=== PATIENT | male | born 1935 | race Caucasian/White ===

== ENCOUNTER 2018-12-07 21:39 | Inpatient (IN) | payer MEDICARE ==
[~2018-12-07] VITALS: Ht 172.7 cm; Wt 64.5 kg
[2018-12-07] MEDS ORDERED: ACETAMINOPHEN 325 MG TABLET PO PRN ×2 (22:00→22:45)
[2018-12-07] MEDS ORDERED: METHYL SALICYLATE/MENTHOL TOPICAL OINTMENT 57GM TUBE. TP PRN (22:00)
[2018-12-07] MEDS ORDERED: MAGNESIUM HYDROXIDE 2,400 MG/30 ML ORAL.SUSP. PO PRN (22:00)
[2018-12-07] MEDS ORDERED: MAG HYDROX/AL HYDROX/SIMETH 30 ML ORAL.SUSP PO PRN (22:00)
--- NOTE | 2018-12-07 22:40 | PDOC ---
Exam Note: Liam Note: Please also refer to the separate dictated note~for this date of service dictated separately.~Patient seen individually. Discussed the patient with Nursing staff reviewed the chart.~Reviewed interim history and current functioning. Reviewed vital signs,~Labs/ Radiology~and current medications noted below. Continue current treatment with the changes noted in the dictated addendum note Current Medications: I have reviewed the current psychotropics carefully including drug interactions. Risk benefit ratio favors no change other than as noted in my dictated progress note. MAURICE GLASS MD Dec 07, 2018 22:40
[2018-12-07] MEDS ORDERED: LORA-254 PO ×2 (22:43)
[2018-12-07] MEDS ORDERED: MULT1TAB52 PO (22:43)
[2018-12-07] MEDS ORDERED: ESCITALOPRAM OX10 MG PO (22:43)
[2018-12-07] MEDS ORDERED: DIVA250T PO (22:43)
[2018-12-07] MEDS ORDERED: METF500T16 PO (22:43)
[2018-12-07] MEDS ORDERED: TAMS0.4C97 PO (22:43)
[2018-12-07] MEDS ORDERED: POLY17PO5 PO (22:43)
[2018-12-07] MEDS ORDERED: ACET325T9 PO ×2 (22:43)
[2018-12-07] MEDS ORDERED: PRAM0.255 PO (22:43)
[2018-12-07] MEDS ORDERED: RASA1TAB2 PO (22:43)
[2018-12-07] MEDS ORDERED: TRAZ-86 PO (22:43)
[2018-12-07] MEDS ORDERED: ALLO300T PO (22:43)
[2018-12-07] MEDS ORDERED: QUET25TA5 PO (22:43)
[2018-12-07] MEDS ORDERED: ASCO500T3 PO (22:43)
[2018-12-07] MEDS ORDERED: ASPI-612 PO (22:43)
[2018-12-07] MEDS ORDERED: CLOP75TA PO (22:43)
[2018-12-07 22:53] LABS: BASO % 0 % (0-3); EOS % 0 % (0-3); HEMATOCRIT 39.1 % (39.0-53.0); HEMOGLOBIN 13.1 g/dL (13.0-17.5); LYMPH % 13 % (24-48); MEAN CORPUSCULAR HEMOGLOBIN 32 pg (25-35); MEAN CORPUSCULAR HGB CONC 34 g/dL (31-37); MEAN CORPUSCULAR VOLUME 96 fL (79-100); MONO # 0.6 x10^3/uL (0.0-1.1); MONO % 8 % (0-9); NEUT # 6.2 x10^3uL (1.8-7.7); NEUT % 78 % (31-73); PLATELET COUNT 255 x10^3/uL (140-400); RED BLOOD COUNT 4.05 x10^6/uL (4.30-5.70); RED CELL DISTRIBUTION WIDTH 14.3 % (11.5-14.5); WHITE BLOOD COUNT 7.9 x10^3/uL (4.0-11.0)
[2018-12-07 23:00] LABS: ALBUMIN 3.6 g/dL (3.4-5.0); CALCIUM 9.1 mg/dL (8.5-10.1); CREATININE 1.2 mg/dL (0.7-1.3); MAGNESIUM 1.6 mg/dL (1.8-2.4); TOTAL BILIRUBIN 0.6 mg/dL (0.2-1.0); TOTAL PROTEIN 7.2 g/dL (6.4-8.2)
[2018-12-07 23:11] VITALS: BP 191/93
[2018-12-07] MEDS ORDERED: CARB1TAB44 PO (23:11)
[2018-12-07] MEDS ORDERED: CARB1TAB48 PO ×2 (23:11)
[2018-12-07 23:25] LABS: VAL ACID < 3 mcg/mL (50-100)
[2018-12-08 00:34] VITALS: BP 191/93
[2018-12-08 05:42] VITALS: BP 176/87
[2018-12-08] MEDS: CLOPIDOGREL BISULFATE 75 MG TABLET PO SCH (07:43)
[2018-12-08] MEDS: ASPIRIN ENTERIC COATED 81 MG TABLET.DR. PO SCH (07:43)
[2018-12-08] MEDS: ALLOPURINOL 300 MG TABLET. PO SCH (07:43)
[2018-12-08] MEDS: TAMSULOSIN 0.4 MG CAP.ER.24H. PO SCH (07:44)
[2018-12-08] MEDS: MULTIVITAMIN with MINERAL TABLET. PO SCH (07:44)
[2018-12-08] MEDS: CITALOPRAM 20 MG TABLET. PO SCH (07:44)
[2018-12-08] MEDS: metFORMIN 500 MG TABLET PO SCH ×2 (07:44→17:00)
[2018-12-08] MEDS: ASCORBIC ACID 500 MG TABLET PO SCH (07:44)
[2018-12-08] MEDS: ACETAMINOPHEN 325 MG TABLET PO SCH ×2 (07:44→20:21)
[2018-12-08] MEDS: PRAMIPEXOLE 0.25 MG TABLET. PO SCH ×3 (07:44→20:21)
[2018-12-08] MEDS: POLYETHYLENE GLYCOL 3350 17 GM PACKET. PO SCH (07:45)
[2018-12-08] MEDS: LORazepam 0.5 MG TABLET PO SCH ×2 (07:45→20:20)
[2018-12-08] MEDS: RASAGILINE MESYLATE 0.5 MG PO SCH (07:45)
[2018-12-08] MEDS ORDERED: QUEtiapine 25 MG TABLET. PO SCH ×2 (09:00)
[2018-12-08] MEDS: CARBIDOPA/LEVODOPA 25/250MG TABLET PO SCH ×4 (10:45→20:28)
[2018-12-08 16:05] VITALS: BP 90/60
[2018-12-08] MEDS: QUEtiapine 25 MG TABLET. PO SCH (20:21)
[2018-12-08] MEDS: CARBIDOPA/LEVODOPA CR 50/200MG TABLET.SA PO SCH (20:23)
[2018-12-08] MEDS: DIVALPROEX ER 250 MG TAB.ER.24H. PO SCH (20:23)
[2018-12-08] MEDS: traZODone 100 MG TABLET. PO SCH (20:24)
[2018-12-08] MEDS: LORazepam 0.5 MG TABLET PO PRN (22:00)
--- NOTE | 2018-12-08 22:22 | PDOC ---
Exam Note: Liam Note: Please also refer to the separate dictated note~for this date of service dictated separately.~Patient seen individually. Discussed the patient with Nursing staff reviewed the chart.~Reviewed interim history and current functioning. Reviewed vital signs,~Labs/ Radiology~and current medications noted below. Continue current treatment with the changes noted in the dictated addendum note Assessment: Vital Signs/I&O: Vital Signs Date Time Temp Pulse Resp B/P (MAP) Pulse Ox O2 Delivery O2 Flow Rate FiO2 12/08/18 16:05 97.4 84 20 90/60 (70) 98 12/08/18 00:34 Room Air I & O 12/07/18 12/07/18 12/08/18 15:00 23:00 07:00 Intake Total 0 ml Balance 0 ml Labs: Laboratory Tests Test 12/07/18 22:32 12/08/18 14:18 12/08/18 19:31 White Blood Count 7.9 x10^3/uL (4.0-11.0) Red Blood Count 4.05 x10^6/uL (4.30-5.70) L Hemoglobin 13.1 g/dL (13.0-17.5) Hematocrit 39.1 % (39.0-53.0) Mean Corpuscular Volume 96 fL (79-100) Mean Corpuscular Hemoglobin 32 pg (25-35) Mean Corpuscular Hemoglobin Concent 34 g/dL (31-37) Red Cell Distribution Width 14.3 % (11.5-14.5) Platelet Count 255 x10^3/uL (140-400) Neutrophils (%) (Auto) 78 % (31-73) H Lymphocytes (%) (Auto) 13 % (24-48) L Monocytes (%) (Auto) 8 % (0-9) Eosinophils (%) (Auto) 0 % (0-3) Basophils (%) (Auto) 0 % (0-3) Neutrophils # (Auto) 6.2 x10^3uL (1.8-7.7) Lymphocytes # (Auto) 1.0 x10^3/uL (1.0-4.8) Monocytes # (Auto) 0.6 x10^3/uL (0.0-1.1) Eosinophils # (Auto) 0.0 x10^3/uL (0.0-0.7) Basophils # (Auto) 0.0 x10^3/uL (0.0-0.2) Sodium Level 137 mmol/L (136-145) Potassium Level 4.0 mmol/L (3.5-5.1) Chloride Level 101 mmol/L (98-107) Carbon Dioxide Level 23 mmol/L (21-32) Anion Gap 13 (6-14) Blood Urea Nitrogen 21 mg/dL (8-26) Creatinine 1.2 mg/dL (0.7-1.3) Estimated GFR (Cockcroft-Gault) 58.0 BUN/Creatinine Ratio 18 (6-20) Glucose Level 132 mg/dL (70-99) H Calcium Level 9.1 mg/dL (8.5-10.1) Magnesium Level 1.6 mg/dL (1.8-2.4) L Iron Level 51 ug/dL (65-175) L Total Iron Binding Capacity 149 ug/dL (250-450) L Iron Saturation 34 % (15-34) Total Bilirubin 0.6 mg/dL (0.2-1.0) Aspartate Amino Transferase (AST) 22 U/L (15-37) Alanine Aminotransferase (ALT) 26 U/L (16-63) Alkaline Phosphatase 88 U/L (46-116) Total Protein 7.2 g/dL (6.4-8.2) Albumin 3.6 g/dL (3.4-5.0) Albumin/Globulin Ratio 1.0 (1.0-1.7) Triglycerides Level 56 mg/dL (0-150) Cholesterol Level 206 mg/dL (0-200) H LDL Cholesterol, Calculated 137 mg/dL (0-100) H VLDL Cholesterol, Calculated 11 mg/dL (0-40) Non-HDL Cholesterol Calculated 148 mg/dL (0-129) H HDL Cholesterol 58 mg/dL (40-60) Cholesterol/HDL Ratio 3.0 Valproic Acid Level < 3 mcg/mL (50-100) L Valproic Acid Last Dose Date 12/06/18 Valproic Acid Last Dose Time 2100 Glucose (Fingerstick) 176 mg/dL (70-99) H 249 mg/dL (70-99) H Current Medications: Meds: Current Medications Medications (Trade) Dose Ordered Sig/Harinder Route PRN Reason Start Time Stop Time Status Last Admin Dose Admin Divalproex Sodium (Depakote Er) 250 mg HS PO 12/08/18 21:00 12/08/18 20:24 Lorazepam (Ativan) 0.5 mg BID PO 12/08/18 09:00 12/08/18 20:24 Pramipexole Dihydrochloride (miraPEX) 0.5 mg TID PO 12/08/18 09:00 12/08/18 20:24 Quetiapine Fumarate (SEROquel) 12.5 mg BID PO 12/08/18 09:00 12/08/18 10:17 DC 12/08/18 07:45 Quetiapine Fumarate (SEROquel) 25 mg BID PO 12/08/18 09:00 12/08/18 10:17 DC 12/08/18 07:52 Trazodone HCl (Desyrel) 100 mg HS PO 12/08/18 21:00 12/08/18 20:24 Citalopram Hydrobromide (CeleXA) 20 mg DAILY PO 12/08/18 09:00 12/08/18 07:45 Acetaminophen (Tylenol) 325 mg BID PO 12/08/18 09:00 12/08/18 20:24 Allopurinol (Zyloprim) 300 mg DAILY PO 12/08/18 09:00 12/08/18 07:45 Ascorbic Acid (Vitamin C) 500 mg DAILY PO 12/08/18 09:00 12/08/18 07:45 Aspirin (Aspirin Enteric Coated) 81 mg DAILYWBKFT PO 12/08/18 08:00 12/08/18 07:45 Clopidogrel Bisulfate (Plavix) 75 mg DAILY PO 12/08/18 09:00 12/08/18 07:45 Metformin HCl (Glucophage) 500 mg BIDWMEALS PO 12/08/18 08:00 12/08/18 17:23 Polyethylene Glycol (miraLAX) 17 gm DAILY PO 12/08/18 09:00 12/08/18 07:45 Tamsulosin HCl (Flomax) 0.4 mg DAILY PO 12/08/18 09:00 12/08/18 07:45 Multivitamins/ Calcium (Thera-M Plus) 1 tab DAILY PO 12/08/18 09:00 12/08/18 07:45 Quetiapine Fumarate (SEROquel) 37.5 mg BID PO 12/08/18 21:00 12/08/18 20:24 Carbidopa/Levodopa (Sinemet 25/250) 1 tab 5XDAY PO 12/08/18 10:45 12/08/18 20:28 Carbidopa/Levodopa (Sinemet Cr) 1 tab.sa BID PO 12/08/18 21:00 12/08/18 20:24 I have reviewed the current psychotropics carefully including drug interactions. Risk benefit ratio favors no change other than as noted in my dictated progress note. Diagnosis: Problems: (1) Anxiety disorder (2) Dementia in Alzheimer's disease with delusions (3) Dementia in Alzheimer's disease with depression (4) Dementia, vascular, with delusions (5) Dementia, vascular, with depression (6) Impulse control disorder MAURICE GLASS MD Dec 08, 2018 22:22
[2018-12-09] MEDS: CARBIDOPA/LEVODOPA 25/250MG TABLET PO SCH ×5 (05:08→22:09)
--- NOTE | 2018-12-09 05:39 | CONS ---
DATE OF CONSULTATION: REASON FOR CONSULTATION: Consult for medical management. HISTORY OF PRESENT ILLNESS: The patient is an 83-year-old male patient, a resident at [facility] in [place], [place] who was brought to the Emergency Room of [facility] because the patient was agitated, lashing out to staff, threaten to hit or shoot staff all this in a background of Parkinson disease, major depressive disorder. He was evaluated at [facility] Emergency Room and was admitted to [facility] for inpatient psychiatric stabilization. The patient is known to have Parkinson disease and he is currently on Sinemet with history of this causing hallucination and psychosis in the past. The patient was then started on Seroquel and Ativan to help the side effects. stated over the past 2 weeks, he has had increased agitation and hallucination and therefore, he was admitted to this facility for inpatient psychiatric stabilization. PAST MEDICAL HISTORY: Significant for ischemic cardiomyopathy, has chronic anemia, type 2 diabetes, gout, hypertension, hyperlipidemia, Parkinson disease and benign prostatic hypertrophy as well as carotid artery stenosis. He also has history of ventricular tachycardia for which he has AICD placed and coronary artery disease status post coronary artery bypass graft surgery. PAST SURGICAL HISTORY: Significant for bilateral cataract extraction, carotid endarterectomy, left heart catheterization, AICD for automatic cardioverter defibrillator. FAMILY HISTORY: Noncontributory. SOCIAL HISTORY: He is , resides in [facility] in [place]. He apparently does not smoke, drink alcohol or recreational drugs. REVIEW OF SYSTEMS: Unobtainable. ALLERGIES: He has no known drug allergies. MEDICATIONS: He is currently on following medications: He is on tamsulosin 0.4 mg at bedtime, Plavix 75 mg once a day, aspirin 81 mg once a day, acetaminophen 650 mg twice a day, divalproex sodium for Depakote 250 mg at bedtime, escitalopram oxalate 10 mg daily, trazodone 100 mg at bedtime, quetiapine fumarate 12.5 mg twice a day, Seroquel 25 mg twice a day, lorazepam 0.5 mg every 8 hours, lorazepam 0.5 mg twice a day scheduled, carbidopa/levodopa extended release 50/200 one twice a day at 6 o'clock and 2100. He is also on carbidopa/levodopa ____ half a tablet as needed between 1800 and 2100, pramipexole for Mirapex 0.5 mg 3 times a day, Azilect 1 mg p.o. daily, polyethylene glycol 17 grams daily, metformin 500 mg twice a day, ascorbic acid 500 mg once a day, multivitamin 1 tablet once a day, allopurinol 300 mg once a day. PHYSICAL EXAMINATION: GENERAL: On examining him, the patient was resting slightly propped up in bed, in no apparent respiratory distress. No pallor, jaundice, cyanosis or thyromegaly. No jugular venous distention. No limb edema. VITAL SIGNS: His heart rate was 91, blood pressure was 191/93, temperature was 98.1, respiratory rate 20, and oxygen saturation was 97%. HEAD, EYES, EARS, NOSE AND THROAT: Showed normocephalic, atraumatic. NECK: Supple. HEART: Showed normal first and second heart sounds, with no gallop, rub or murmur. CHEST: Shows central trachea with the midline sternotomy surgical scars. He has a pacemaker in the left infraclavicular area, has equal bilateral expansion, air entry ____ crepitation or rhonchi. ABDOMEN: Distended, soft, nontender. NEUROLOGIC: He is awake, alert. All his cranial nerves are intact. EXTREMITIES: He moves extremities without difficulty, although apparently is mostly bedbound, chair bound. LABORATORY DATA: Showed a white cell count 7900, hemoglobin 13, hematocrit 39, MCV 96, and platelet count 255,000. His chemistry showed a serum sodium 137, potassium 4, chloride 101, bicarbonate 23, anion gap of 13, BUN 21, creatinine 1.2, estimated GFR was 58 mL per minute, his glucose 132, calcium was 9.1, magnesium was 1.9. Serum iron, TIBC and iron saturation are all consistent with anemia of chronic disease. His total bilirubin, AST, ALT, alkaline phosphatase were normal. Total protein 7.2, albumin 3.6. Serum triglycerides 56, total cholesterol 106, the LDL was 137, VLDL was 11, HDL cholesterol of 58 and the ratio was 3. His valproic acid was less than 3 mcg/mL. IMPRESSION: In summary, this is an 83-year-old male patient who was brought to the Emergency Room of [facility] from [facility] as he was extremely agitated, lashing out at staff, threatening to hit or shoot the staff. Apparently, he has been on Sinemet with a history of this causing hallucination and psychosis in the past. He was started on Seroquel and Ativan to help the side effects; however, his stated -over the last 2 weeks his symptoms have only worsened with increasing agitation, hallucination and therefore he was admitted to this facility for inpatient psychiatric stabilization. Medically, he has multiple medical problems including ischemic cardiomyopathy, chronic anemia, type 2 diabetes, gout, hypertension, hyperlipidemia, Parkinson disease. He is also known to have benign prostatic hypertrophy. All his lab work seems to be within acceptable range as well as his vital signs. We will consult Dr. Cerda as adjustment of his medication or perhaps substitution of the Sinemet with another anti-parkinsonian medication might be the appropriate action. Thank you, Dr. Lemons for allowing me to participate in the care of this patient. FILIPPO DANIELS MD DR: DON/nadeem JOB#: [id number] / [id number]
[2018-12-09 05:50] VITALS: BP 125/64
[2018-12-09] MEDS: PRAMIPEXOLE 0.25 MG TABLET. PO SCH ×3 (08:13→19:53)
[2018-12-09] MEDS: QUEtiapine 25 MG TABLET. PO SCH ×2 (08:13→19:53)
[2018-12-09] MEDS: ACETAMINOPHEN 325 MG TABLET PO SCH ×2 (08:13→19:52)
[2018-12-09] MEDS: ASCORBIC ACID 500 MG TABLET PO SCH (08:13)
[2018-12-09] MEDS: ASPIRIN ENTERIC COATED 81 MG TABLET.DR. PO SCH (08:13)
[2018-12-09] MEDS: TAMSULOSIN 0.4 MG CAP.ER.24H. PO SCH (08:14)
[2018-12-09] MEDS: ALLOPURINOL 300 MG TABLET. PO SCH (08:14)
[2018-12-09] MEDS: CLOPIDOGREL BISULFATE 75 MG TABLET PO SCH (08:14)
[2018-12-09] MEDS: MULTIVITAMIN with MINERAL TABLET. PO SCH (08:14)
[2018-12-09] MEDS: metFORMIN 500 MG TABLET PO SCH ×2 (08:14→17:03)
[2018-12-09] MEDS: CITALOPRAM 20 MG TABLET. PO SCH (08:15)
[2018-12-09] MEDS: POLYETHYLENE GLYCOL 3350 17 GM PACKET. PO SCH (08:16)
[2018-12-09] MEDS: CARBIDOPA/LEVODOPA CR 50/200MG TABLET.SA PO SCH ×2 (08:16→19:53)
[2018-12-09] MEDS: LORazepam 0.5 MG TABLET PO SCH ×2 (08:18→19:54)
[2018-12-09] MEDS: RASAGILINE MESYLATE 0.5 MG PO SCH (09:00)
[2018-12-09 15:34] VITALS: BP 110/77
--- NOTE | 2018-12-09 16:26 | HP ---
ADMIT DATE: 12/08/2018 ADMISSION HISTORY AND EVALUATION This late entry, 12/08/2018, covers elements not covered in my initial note of 12/08/2018. I met with the patient evening of 12/08/2018 for this evaluation. IDENTIFYING DATA: The patient is an 83-year-old male referred to us from [facility] Emergency Room where he presented from [facility] on account of being combative and threatening to shoot others. He was refusing to take medications because he believed there were poisoned. He was "lashing out at staff." Symptoms had worsened over the past 3 weeks. Behaviors were deemed unmanageable, out of control, referred by his primary care physician, Dr. Uche Jaramillo to the ER at [facility], evaluated there, found to be medically stable and then referred to us for inpatient psychiatric stabilization on account of his dangerous, out of control, unmanageable behaviors, having failed outpatient psychiatric interventions. CHIEF COMPLAINT: "No." HISTORY OF PRESENT ILLNESS: The patient has a history of possible dementia, Lewy body versus Parkinson's versus Alzheimer's, vascular. He has been residing at the [facility] for some time, but recently getting increasingly agitated, paranoid, suspicious at the [facility] Emergency Room. He was refusing his medications. He has had sleep and appetite changes. No active suicidal or homicidal ideation other than threats to shoot others, though he did not have access to a gun. No clear history of bipolar disorder. PAST PSYCHIATRIC HISTORY: As above. MEDICAL HISTORY: Parkinson's disease, diabetes mellitus, hypertension, coronary artery disease, hyperlipidemia, pacemaker in place, degenerative joint disease, gout, history of ventricular tachycardia, urinary urgency, hip replacement. He is extremely hard of hearing. CURRENT PSYCHOTROPICS: Seroquel 25 mg b.i.d., 12.5 mg b.i.d.; Ativan p.r.n. plus Ativan 0.5 mg b.i.d.; Sinemet, which he gets 7 times a day; Depakote ER 250 mg daily; Lexapro 10 mg a day; pramipexole 3 times a day; trazodone 100 mg at bedtime. FAMILY HISTORY: Noncontributory. SOCIAL HISTORY: No history of alcohol, drug abuse, physical, sexual or elder abuse. He is not known to be a perpetrator. REACTION TO HOSPITALIZATION: The patient is somewhat oblivious of this. ASSETS: Supportive living at the above facility. MENTAL STATUS EXAMINATION: The patient was seen individually evening of 12/08/2018. He is oriented to himself in a wheelchair, not very verbal. Insight, judgment, recent and remote memory, attention, concentration, fund of knowledge poor, consistent with his diagnosis. He was having difficulty feeding himself and I fed him 3/4 of his dinner including his dessert which was a pie and most of the potato dish. IMPRESSION: Major neurocognitive disorder, multifactorial, possibly secondary to Parkinson's, Lewy body, vascular with delusion, depression, behavioral disturbance; anxiety disorder, unspecified; impulse control disorder, unspecified. Rest diagnoses as above. PLAN: Admit to Geropsychiatry Unit at [facility]. I will see the patient daily individually from a psychiatric standpoint. Medical followup with Dr. Garcia. Continue the patient on his current psychotropics. Observe baseline, then adjust psychotropics as clinically indicated. We may need to adjust the Depakote to reach a therapeutic level. Change the Lexapro to standard substitution, Celexa 10 mg a day. Consider adjusting the Seroquel. May consider a Neurology consult, Dr. Cerda to see what is the lowest dosage of Sinemet he can have since it could be worsening his psychotic symptoms. Estimated length of stay 10-12 days. DISPOSITION: Plans back to nursing facility when stable. MAURICE GLASS MD DR: CHANDAN/nadeem JOB#: [id number] / [id number]
[2018-12-09] MEDS: traZODone 100 MG TABLET. PO SCH (19:52)
[2018-12-09] MEDS: MIRTAZAPINE 7.5 MG TABLET. PO SCH (19:54)
[2018-12-09] MEDS: DIVALPROEX ER 250 MG TAB.ER.24H. PO SCH (19:55)
--- NOTE | 2018-12-09 21:43 | PDOC ---
Exam Note: Liam Note: Please also refer to the separate dictated note~for this date of service dictated separately.~Patient seen individually. Discussed the patient with Nursing staff reviewed the chart.~Reviewed interim history and current functioning. Reviewed vital signs,~Labs/ Radiology~and current medications noted below. Continue current treatment with the changes noted in the dictated addendum note Assessment: Vital Signs/I&O: Vital Signs Date Time Temp Pulse Resp B/P (MAP) Pulse Ox O2 Delivery O2 Flow Rate FiO2 12/09/18 15:34 97.3 71 20 110/77 (88) 99 12/08/18 00:34 Room Air I & O 12/08/18 12/08/18 12/09/18 15:00 23:00 07:00 Intake Total 120 ml 600 ml Balance 120 ml 600 ml Labs: Laboratory Tests Test 12/09/18 07:26 12/09/18 19:08 Glucose (Fingerstick) 138 mg/dL (70-99) H 134 mg/dL (70-99) H Current Medications: Meds: Current Medications Medications (Trade) Dose Ordered Sig/Harinder Route PRN Reason Start Time Stop Time Status Last Admin Dose Admin Mirtazapine (Remeron) 7.5 mg QHS PO 12/09/18 21:00 12/09/18 19:55 I have reviewed the current psychotropics carefully including drug interactions. Risk benefit ratio favors no change other than as noted in my dictated progress note. Diagnosis: Problems: (1) Anxiety disorder (2) Dementia in Alzheimer's disease with delusions (3) Dementia in Alzheimer's disease with depression (4) Dementia, vascular, with delusions (5) Dementia, vascular, with depression (6) Impulse control disorder MAURICE GLASS MD Dec 09, 2018 21:43
[2018-12-10 00:06] LABS: HEMOGLOBIN A1C 6.4 % (4.8-5.6)
[2018-12-10] MEDS: traZODone 100 MG TABLET. PO PRN (00:59)
[2018-12-10] MEDS: LORazepam 0.5 MG TABLET PO PRN (02:36)
[2018-12-10 05:46] VITALS: BP 176/82
[2018-12-10] MEDS: CARBIDOPA/LEVODOPA 25/250MG TABLET PO SCH ×5 (05:59→19:53)
[2018-12-10] MEDS: metFORMIN 500 MG TABLET PO SCH ×2 (07:38→16:18)
[2018-12-10] MEDS: POLYETHYLENE GLYCOL 3350 17 GM PACKET. PO SCH (07:38)
[2018-12-10] MEDS: CLOPIDOGREL BISULFATE 75 MG TABLET PO SCH (07:38)
[2018-12-10] MEDS: ALLOPURINOL 300 MG TABLET. PO SCH (07:39)
[2018-12-10] MEDS: CITALOPRAM 20 MG TABLET. PO SCH (07:39)
[2018-12-10] MEDS: CARBIDOPA/LEVODOPA CR 50/200MG TABLET.SA PO SCH ×2 (07:39→19:38)
[2018-12-10] MEDS: ACETAMINOPHEN 325 MG TABLET PO SCH ×2 (07:39→19:38)
[2018-12-10] MEDS: MULTIVITAMIN with MINERAL TABLET. PO SCH (07:39)
[2018-12-10] MEDS: TAMSULOSIN 0.4 MG CAP.ER.24H. PO SCH (07:39)
[2018-12-10] MEDS: QUEtiapine 25 MG TABLET. PO SCH ×2 (07:39→19:38)
[2018-12-10] MEDS: ASPIRIN ENTERIC COATED 81 MG TABLET.DR. PO SCH (07:39)
[2018-12-10] MEDS: PRAMIPEXOLE 0.25 MG TABLET. PO SCH ×3 (07:39→19:38)
[2018-12-10] MEDS: ASCORBIC ACID 500 MG TABLET PO SCH (07:39)
[2018-12-10] MEDS: LORazepam 0.5 MG TABLET PO SCH ×2 (07:44→19:53)
[2018-12-10] MEDS: RASAGILINE MESYLATE 0.5 MG PO SCH (07:52)
[2018-12-10] MEDS ORDERED: RASAGILINE MESYLATE 0.5 MG PO SCH (09:00)
[2018-12-10 15:35] VITALS: BP 124/74
[2018-12-10] MEDS: traZODone 100 MG TABLET. PO SCH (19:38)
[2018-12-10] MEDS: MIRTAZAPINE 7.5 MG TABLET. PO SCH (19:38)
[2018-12-10] MEDS: DIVALPROEX 125 MG CAP.SPRINK PO SCH (19:53)
--- NOTE | 2018-12-10 21:44 | PDOC ---
Exam Note: Liam Note: Please also refer to the separate dictated note~for this date of service dictated separately.~Patient seen individually. Discussed the patient with Nursing staff reviewed the chart.~Reviewed interim history and current functioning. Reviewed vital signs,~Labs/ Radiology~and current medications noted below. Continue current treatment with the changes noted in the dictated addendum note Assessment: Vital Signs/I&O: Vital Signs Date Time Temp Pulse Resp B/P (MAP) Pulse Ox O2 Delivery O2 Flow Rate FiO2 12/10/18 15:35 97.5 76 18 124/74 (91) 92 12/10/18 05:46 Room Air I & O 12/09/18 12/09/18 12/10/18 15:00 23:00 07:00 Intake Total 580 ml 360 ml Balance 580 ml 360 ml Labs: Laboratory Tests Test 12/10/18 07:40 12/10/18 19:29 Glucose (Fingerstick) 120 mg/dL (70-99) H 135 mg/dL (70-99) H Current Medications: Meds: Current Medications Medications (Trade) Dose Ordered Sig/Harinder Route PRN Reason Start Time Stop Time Status Last Admin Dose Admin Non-Formulary Medication (Rasagiline Mesylate (Azilect)) 2 mg DAILY PO 12/10/18 09:00 12/10/18 07:50 DC 12/10/18 07:47 Divalproex Sodium (Depakote Sprinkles) 250 mg HS PO 12/10/18 21:00 12/10/18 19:54 Trazodone HCl (Desyrel) 100 mg PRN QHS PRN PO INSOMNIA 12/10/18 00:30 12/10/18 00:59 Non-Formulary Medication (Rasagiline Mesylate (Azilect)) 1 mg DAILY PO 12/10/18 09:00 12/10/18 07:52 Quetiapine Fumarate (SEROquel) 25 mg QHS PO 12/10/18 21:00 12/10/18 19:39 Lorazepam (Ativan) 0.25 mg BID PO 12/10/18 21:00 12/10/18 19:54 I have reviewed the current psychotropics carefully including drug interactions. Risk benefit ratio favors no change other than as noted in my dictated progress note. Diagnosis: Problems: (1) Anxiety disorder (2) Dementia in Alzheimer's disease with delusions (3) Dementia in Alzheimer's disease with depression (4) Dementia, vascular, with delusions (5) Dementia, vascular, with depression (6) Impulse control disorder MAURICE GLASS MD Dec 10, 2018 21:44
--- NOTE | 2018-12-11 00:51 | PN ---
DATE: 12/09/2018 PSYCHIATRIC PROGRESS NOTE This late entry 12/09/2018 covers the elements not covered in my initial note. SUBJECTIVE: I met with the patient in the evening of 12/09/2018. The patient slept just 1-1/4 hours previous night. He remains confused in a Broda chair, takes his medications crushed, remains on Ativan scheduled. Per information from family until about 10 days ago, he could walk by himself. REVIEW OF SYSTEMS: Ambulation impaired. No CV, , pulmonary, eye, ENT system symptoms on review. Reliability poor. MENTAL STATUS EXAM: Oriented to himself. Insight, judgment, recent and remote memory, attention, concentration and fund of knowledge are poor, consistent with his diagnosis. IMPRESSION: Major neurocognitive disorder, Alzheimer, vascular with delusion, depression, behavioral disturbance; anxiety disorder, unspecified; impulse control disorder, unspecified. Rest unchanged. PLAN: We will go ahead and start Remeron 7.5 mg at bedtime for his insomnia. He remains on trazodone 100 mg at bedtime, we may repeat this x1 for insomnia. Continue Seroquel, Ativan, Lexapro and he is on Sinemet and Mirapex for his Parkinson. May reduce his scheduled Ativan soon enough. MAURICE GLASS MD DR: CHANDAN/nadeem JOB#: [id number] / [id number]
[2018-12-11] MEDS: CARBIDOPA/LEVODOPA 25/250MG TABLET PO SCH ×5 (03:54→22:15)
[2018-12-11 05:46] VITALS: BP 170/90
[2018-12-11 09:37] LABS: BASO % 1 % (0-3); EOS # 0.2 x10^3/uL (0.0-0.7); EOS % 3 % (0-3); HEMATOCRIT 36.6 % (39.0-53.0); HEMOGLOBIN 12.3 g/dL (13.0-17.5); LYMPH # 0.8 x10^3/uL (1.0-4.8); LYMPH % 12 % (24-48); MEAN CORPUSCULAR HEMOGLOBIN 32 pg (25-35); MEAN CORPUSCULAR HGB CONC 34 g/dL (31-37); MEAN CORPUSCULAR VOLUME 97 fL (79-100); MONO # 0.4 x10^3/uL (0.0-1.1); MONO % 7 % (0-9); NEUT # 4.8 x10^3uL (1.8-7.7); NEUT % 78 % (31-73); PLATELET COUNT 236 x10^3/uL (140-400); RED BLOOD COUNT 3.78 x10^6/uL (4.30-5.70); RED CELL DISTRIBUTION WIDTH 14.4 % (11.5-14.5); WHITE BLOOD COUNT 6.2 x10^3/uL (4.0-11.0)
[2018-12-11 09:55] LABS: ALBUMIN 3.3 g/dL (3.4-5.0); ALBUMIN/GLOBULIN RATIO 0.9 (1.0-1.7); CALCIUM 8.9 mg/dL (8.5-10.1); CREATININE 1.1 mg/dL (0.7-1.3); GFR 64.1; POTASSIUM 3.9 mmol/L (3.5-5.1); TOTAL BILIRUBIN 0.5 mg/dL (0.2-1.0); TOTAL PROTEIN 6.8 g/dL (6.4-8.2)
[2018-12-11] MEDS: CITALOPRAM 20 MG TABLET. PO SCH (10:14)
[2018-12-11] MEDS: PRAMIPEXOLE 0.25 MG TABLET. PO SCH ×3 (10:14→20:27)
[2018-12-11] MEDS: ACETAMINOPHEN 325 MG TABLET PO SCH ×2 (10:14→20:28)
[2018-12-11] MEDS: ASPIRIN ENTERIC COATED 81 MG TABLET.DR. PO SCH (10:14)
[2018-12-11] MEDS: TAMSULOSIN 0.4 MG CAP.ER.24H. PO SCH (10:14)
[2018-12-11] MEDS: CLOPIDOGREL BISULFATE 75 MG TABLET PO SCH (10:14)
[2018-12-11] MEDS: MULTIVITAMIN with MINERAL TABLET. PO SCH (10:14)
[2018-12-11] MEDS: ALLOPURINOL 300 MG TABLET. PO SCH (10:14)
[2018-12-11] MEDS: ASCORBIC ACID 500 MG TABLET PO SCH (10:14)
[2018-12-11] MEDS: CARBIDOPA/LEVODOPA CR 50/200MG TABLET.SA PO SCH ×2 (10:14→20:29)
[2018-12-11] MEDS: metFORMIN 500 MG TABLET PO SCH ×2 (10:14→17:09)
[2018-12-11] MEDS: POLYETHYLENE GLYCOL 3350 17 GM PACKET. PO SCH (10:15)
[2018-12-11] MEDS: RASAGILINE MESYLATE 0.5 MG PO SCH (10:19)
[2018-12-11] MEDS: QUEtiapine 25 MG TABLET. PO SCH ×3 (10:20→20:28)
[2018-12-11] MEDS: LORazepam 0.5 MG TABLET PO SCH ×2 (10:20→20:28)
[2018-12-11 10:37] LABS: VAL ACID 24 mcg/mL (50-100)
[2018-12-11 15:39] VITALS: BP 159/81
[2018-12-11] MEDS: DIVALPROEX 125 MG CAP.SPRINK PO SCH (20:27)
[2018-12-11] MEDS: MIRTAZAPINE 7.5 MG TABLET. PO SCH (20:28)
[2018-12-11] MEDS: traZODone 100 MG TABLET. PO SCH (20:28)
--- NOTE | 2018-12-11 21:05 | PDOC ---
Exam Note: Liam Note: Please also refer to the separate dictated note~for this date of service dictated separately.~Patient seen individually. Discussed the patient with Nursing staff reviewed the chart.~Reviewed interim history and current functioning. Reviewed vital signs,~Labs/ Radiology~and current medications noted below. Continue current treatment with the changes noted in the dictated addendum note Assessment: Vital Signs/I&O: Vital Signs Date Time Temp Pulse Resp B/P (MAP) Pulse Ox O2 Delivery O2 Flow Rate FiO2 12/11/18 15:39 98.3 100 16 159/81 (107) 93 12/10/18 05:46 Room Air I & O 12/10/18 12/10/18 12/11/18 14:59 22:59 06:59 Intake Total 360 ml 480 ml Balance 360 ml 480 ml Labs: Laboratory Tests Test 12/11/18 07:54 12/11/18 08:57 12/11/18 20:01 Glucose (Fingerstick) 106 mg/dL (70-99) H 152 mg/dL (70-99) H White Blood Count 6.2 x10^3/uL (4.0-11.0) Red Blood Count 3.78 x10^6/uL (4.30-5.70) L Hemoglobin 12.3 g/dL (13.0-17.5) L Hematocrit 36.6 % (39.0-53.0) L Mean Corpuscular Volume 97 fL (79-100) Mean Corpuscular Hemoglobin 32 pg (25-35) Mean Corpuscular Hemoglobin Concent 34 g/dL (31-37) Red Cell Distribution Width 14.4 % (11.5-14.5) Platelet Count 236 x10^3/uL (140-400) Neutrophils (%) (Auto) 78 % (31-73) H Lymphocytes (%) (Auto) 12 % (24-48) L Monocytes (%) (Auto) 7 % (0-9) Eosinophils (%) (Auto) 3 % (0-3) Basophils (%) (Auto) 1 % (0-3) Neutrophils # (Auto) 4.8 x10^3uL (1.8-7.7) Lymphocytes # (Auto) 0.8 x10^3/uL (1.0-4.8) L Monocytes # (Auto) 0.4 x10^3/uL (0.0-1.1) Eosinophils # (Auto) 0.2 x10^3/uL (0.0-0.7) Basophils # (Auto) 0.0 x10^3/uL (0.0-0.2) Sodium Level 144 mmol/L (136-145) Potassium Level 3.9 mmol/L (3.5-5.1) Chloride Level 106 mmol/L (98-107) Carbon Dioxide Level 28 mmol/L (21-32) Anion Gap 10 (6-14) Blood Urea Nitrogen 36 mg/dL (8-26) H Creatinine 1.1 mg/dL (0.7-1.3) Estimated GFR (Cockcroft-Gault) 64.1 BUN/Creatinine Ratio 33 (6-20) H Glucose Level 162 mg/dL (70-99) H Calcium Level 8.9 mg/dL (8.5-10.1) Total Bilirubin 0.5 mg/dL (0.2-1.0) Aspartate Amino Transferase (AST) 25 U/L (15-37) Alanine Aminotransferase (ALT) 6 U/L (16-63) L Alkaline Phosphatase 85 U/L (46-116) Total Protein 6.8 g/dL (6.4-8.2) Albumin 3.3 g/dL (3.4-5.0) L Albumin/Globulin Ratio 0.9 (1.0-1.7) L Valproic Acid Level 24 mcg/mL (50-100) L Valproic Acid Last Dose Date 12/10/2018 Valproic Acid Last Dose Time 2100 Current Medications: Meds: Current Medications Medications (Trade) Dose Ordered Sig/Harinder Route PRN Reason Start Time Stop Time Status Last Admin Dose Admin Quetiapine Fumarate (SEROquel) 50 mg BID@0900,1300 PO 12/11/18 09:00 12/11/18 13:06 I have reviewed the current psychotropics carefully including drug interactions. Risk benefit ratio favors no change other than as noted in my dictated progress note. Diagnosis: Problems: (1) Anxiety disorder (2) Dementia in Alzheimer's disease with delusions (3) Dementia in Alzheimer's disease with depression (4) Dementia, vascular, with delusions (5) Dementia, vascular, with depression (6) Impulse control disorder MAURICE GLASS MD Dec 11, 2018:05
--- NOTE | 2018-12-12 00:42 | PN ---
DATE: 12/10/2018 PSYCHIATRIC PROGRESS NOTE This late entry of 12/10/2018 covers the elements not covered in my initial note. SUBJECTIVE: I met with the patient evening of 12/10/2018. The patient slept 3 hours previous night with 2 trazodone and Ativan. He was combative with cares previous night, and during the day on 12/10/2018, he has had jerky movements, agitated with cares, restless, anxious. It is questionable whether Ativan could schedule 0.5 b.i.d. could be causing paradoxical disinhibition. REVIEW OF SYSTEMS: Ambulation impaired. No CV, , pulmonary, eye, ENT system symptoms on review. Reliability poor. MENTAL STATUS EXAM: Oriented to himself. Insight, judgment, recent and remote memory, attention, concentration, fund of knowledge poor, consistent with his diagnosis. 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 PLAN: Reduce the scheduled Ativan from 0.5 b.i.d. to 0.25 mg twice a day. Change the Seroquel from 37.5 mg b.i.d. to 50 mg 9 a.m., 1 p.m. and 25 mg at 5:00 p.m. Continue rest of the psychotropics unchanged. Depakote is 250 mg daily. Follow labs level. Adjust as clinically indicated. MAURICE GLASS MD DR: CHANDAN/nadeem JOB#: [id number] / [id number]
[2018-12-12] MEDS: traZODone 100 MG TABLET. PO PRN (00:50)
[2018-12-12] MEDS: CARBIDOPA/LEVODOPA 25/250MG TABLET PO SCH ×5 (05:15→22:19)
[2018-12-12 05:55] VITALS: BP 162/75
[2018-12-12] MEDS: TAMSULOSIN 0.4 MG CAP.ER.24H. PO SCH (08:39)
[2018-12-12] MEDS: CLOPIDOGREL BISULFATE 75 MG TABLET PO SCH (08:39)
[2018-12-12] MEDS: PRAMIPEXOLE 0.25 MG TABLET. PO SCH ×3 (08:40→19:52)
[2018-12-12] MEDS: ACETAMINOPHEN 325 MG TABLET PO SCH ×2 (08:40→19:52)
[2018-12-12] MEDS: ASCORBIC ACID 500 MG TABLET PO SCH (08:40)
[2018-12-12] MEDS: MULTIVITAMIN with MINERAL TABLET. PO SCH (08:40)
[2018-12-12] MEDS: QUEtiapine 25 MG TABLET. PO SCH ×3 (08:40→19:52)
[2018-12-12] MEDS: ALLOPURINOL 300 MG TABLET. PO SCH (08:40)
[2018-12-12] MEDS: CITALOPRAM 20 MG TABLET. PO SCH (08:40)
[2018-12-12] MEDS: metFORMIN 500 MG TABLET PO SCH ×2 (08:40→16:20)
[2018-12-12] MEDS: ASPIRIN ENTERIC COATED 81 MG TABLET.DR. PO SCH (08:40)
[2018-12-12] MEDS: POLYETHYLENE GLYCOL 3350 17 GM PACKET. PO SCH (08:41)
[2018-12-12] MEDS: CARBIDOPA/LEVODOPA CR 50/200MG TABLET.SA PO SCH ×2 (08:41→19:52)
[2018-12-12] MEDS: RASAGILINE MESYLATE 0.5 MG PO SCH (08:41)
[2018-12-12] MEDS: LORazepam 0.5 MG TABLET PO SCH (08:43)
[2018-12-12] MEDS ORDERED: LORazepam 0.5 MG TABLET PO SCH (09:00)
[2018-12-12 15:44] VITALS: BP 144/73
[2018-12-12] MEDS: DIVALPROEX 125 MG CAP.SPRINK PO SCH (19:52)
[2018-12-12] MEDS: traZODone 100 MG TABLET. PO SCH (19:52)
[2018-12-12] MEDS: MIRTAZAPINE 7.5 MG TABLET. PO SCH (19:52)
--- NOTE | 2018-12-12 21:57 | PDOC ---
Exam Note: Liam Note: Please also refer to the separate dictated note~for this date of service dictated separately.~Patient seen individually. Discussed the patient with Nursing staff reviewed the chart.~Reviewed interim history and current functioning. Reviewed vital signs,~Labs/ Radiology~and current medications noted below. Continue current treatment with the changes noted in the dictated addendum note Assessment: Vital Signs/I&O: Vital Signs Date Time Temp Pulse Resp B/P (MAP) Pulse Ox O2 Delivery O2 Flow Rate FiO2 12/12/18 15:44 98.2 76 18 144/73 (96) 98 Room Air I & O 12/11/18 12/11/18 12/12/18 14:59 22:59 06:59 Intake Total 240 ml 360 ml Balance 240 ml 360 ml Labs: Laboratory Tests Test 12/12/18 07:43 12/12/18 19:32 Glucose (Fingerstick) 97 mg/dL (70-99) 166 mg/dL (70-99) H Current Medications: Meds: Current Medications Medications (Trade) Dose Ordered Sig/Harinder Route PRN Reason Start Time Stop Time Status Last Admin Dose Admin Lorazepam (Ativan) 0.25 mg DAILY PO 12/12/18 09:00 12/14/18 12:00 12/12/18 08:43 I have reviewed the current psychotropics carefully including drug interactions. Risk benefit ratio favors no change other than as noted in my dictated progress note. Diagnosis: Problems: (1) Anxiety disorder (2) Dementia in Alzheimer's disease with delusions (3) Dementia in Alzheimer's disease with depression (4) Dementia, vascular, with delusions (5) Dementia, vascular, with depression (6) Impulse control disorder MAURICE GLASS MD Dec 12, 2018 21:57
[2018-12-13 06:00] VITALS: BP 174/87
[2018-12-13] MEDS: CARBIDOPA/LEVODOPA 25/250MG TABLET PO SCH ×5 (06:19→21:12)
[2018-12-13] MEDS: metFORMIN 500 MG TABLET PO SCH ×2 (07:50→17:06)
[2018-12-13] MEDS: ASPIRIN ENTERIC COATED 81 MG TABLET.DR. PO SCH (07:50)
[2018-12-13] MEDS: ASCORBIC ACID 500 MG TABLET PO SCH (07:51)
[2018-12-13] MEDS: TAMSULOSIN 0.4 MG CAP.ER.24H. PO SCH (07:51)
[2018-12-13] MEDS: PRAMIPEXOLE 0.25 MG TABLET. PO SCH ×3 (07:51→19:43)
[2018-12-13] MEDS: MULTIVITAMIN with MINERAL TABLET. PO SCH (07:52)
[2018-12-13] MEDS: CLOPIDOGREL BISULFATE 75 MG TABLET PO SCH (07:53)
[2018-12-13] MEDS: ALLOPURINOL 300 MG TABLET. PO SCH (07:53)
[2018-12-13] MEDS: ACETAMINOPHEN 325 MG TABLET PO SCH ×2 (07:53→19:42)
[2018-12-13] MEDS: CARBIDOPA/LEVODOPA CR 50/200MG TABLET.SA PO SCH ×2 (07:54→19:42)
[2018-12-13] MEDS: POLYETHYLENE GLYCOL 3350 17 GM PACKET. PO SCH (07:54)
[2018-12-13] MEDS: QUEtiapine 25 MG TABLET. PO SCH ×3 (07:54→19:42)
[2018-12-13] MEDS: CITALOPRAM 20 MG TABLET. PO SCH (07:55)
[2018-12-13] MEDS: RASAGILINE MESYLATE 0.5 MG PO SCH (08:19)
[2018-12-13] MEDS: LORazepam 0.5 MG TABLET PO SCH (08:20)
[2018-12-13 16:53] VITALS: BP 132/75
[2018-12-13] MEDS: MIRTAZAPINE 7.5 MG TABLET. PO SCH (19:42)
[2018-12-13] MEDS: traZODone 100 MG TABLET. PO SCH (19:42)
[2018-12-13] MEDS: DIVALPROEX 125 MG CAP.SPRINK PO SCH (19:42)
--- NOTE | 2018-12-13 21:41 | PDOC ---
Exam Note: Liam Note: Please also refer to the separate dictated note~for this date of service dictated separately.~Patient seen individually. Discussed the patient with Nursing staff reviewed the chart.~Reviewed interim history and current functioning. Reviewed vital signs,~Labs/ Radiology~and current medications noted below. Continue current treatment with the changes noted in the dictated addendum note Assessment: Vital Signs/I&O: Vital Signs Date Time Temp Pulse Resp B/P (MAP) Pulse Ox O2 Delivery O2 Flow Rate FiO2 12/13/18 16:53 98.2 94 20 132/75 (94) 100 12/12/18 15:44 Room Air I & O 12/12/18 12/12/18 12/13/18 14:59 22:59 06:59 Intake Total 1200 ml 240 ml 240 ml Balance 1200 ml 240 ml 240 ml Labs: Laboratory Tests Test 12/13/18 07:21 12/13/18 19:12 Glucose (Fingerstick) 111 mg/dL (70-99) H 166 mg/dL (70-99) H Current Medications: I have reviewed the current psychotropics carefully including drug interactions. Risk benefit ratio favors no change other than as noted in my dictated progress note. Diagnosis: Problems: (1) Anxiety disorder (2) Dementia in Alzheimer's disease with delusions (3) Dementia in Alzheimer's disease with depression (4) Dementia, vascular, with delusions (5) Dementia, vascular, with depression (6) Impulse control disorder MAURICE GLASS MD Dec 13, 2018 21:41
--- NOTE | 2018-12-13 23:04 | PN ---
DATE: 12/12/2018 PSYCHIATRIC PROGRESS NOTE This late entry 12/12/2018 covers elements not covered in my initial note. SUBJECTIVE: I met with the patient evening of 12/12/2018 and staffed at a treatment team meeting with the entire team in the morning. The patient's , Janet, attended the treatment team meeting along with the daughter, Yanni. We had a lengthy discussion about the patient's history, has reasonably high level of functioning until very recently. Until 6 weeks ago, he was at home, had some medical problems, was hospitalized and then done rehab and at one point was having hallucinations, seeing dogs. He is sleeping 4-1/2 to 5 hours. Appetite 50-75%. Until 2 weeks ago, reportedly he had gone out for lunch with friends. All of this declined; however, has been fairly rapid therefore. REVIEW OF SYSTEMS: Ambulation impaired, in wheelchair. No CV, , pulmonary, eye, ENT system symptoms on review. I helped him feed a large part of his supper. MENTAL STATUS EXAM: Oriented to himself and situation. Speech has some latency, often responses monosyllabic. Abstraction fair, computation impaired, language function intact, attention span short. Mood and affect withdrawn. LABORATORY DATA: Reviewed. IMPRESSION: Unchanged from initial note and include diagnosis of major depressive disorder with psychotic features, delirium due to general medical condition, major neurocognitive disorder early, possibly Lewy body, Alzheimer's, vascular with delusion, depression, behavioral disturbance. Rest unchanged. PLAN: Carefully reviewed the patient's current psychotropics. Maintain Seroquel, Ativan p.r.n. He is on Sinemet for Parkinson's, Celexa, trazodone, and Remeron. Ativan is being tapered and stopped. Adjust further as clinically indicated. MAN Tonya GLASS MD DR: CHANDAN/nadeem JOB#: [id number] / [id number]
--- NOTE | 2018-12-14 02:02 | PN ---
DATE: 12/11/2018 PSYCHIATRIC PROGRESS NOTE This late entry, 12/11/2018, covers elements not covered in my initial note. SUBJECTIVE: I met with the patient evening of 12/11/2018. The patient slept 6-3/4 hours last night. He had a "great" morning per nursing report. Later, he made statements that he felt he was in senior care, but knew the year was 2018, the president was president Ronnie. He takes his meds crushed. He was somewhat sedated. Tremors are better. Valproic acid level is 24. REVIEW OF SYSTEMS: Ambulation impaired, in wheelchair. No CV, , pulmonary, eye, ENT system symptoms on review. Does have hand tremors consequent to his Parkinson's. MENTAL STATUS EXAM: Oriented to himself and situation. Speech is moderate latency, often responses monosyllabic, if, that.. Abstraction fair, computation impaired, language function intact, attention span short. Memory is impaired. Mood and affect somewhat anxious, slightly labile. LABORATORY DATA: Reviewed. IMPRESSION: Unchanged from initial note. PLAN: We will reduce the scheduled Ativan to 0.25 mg daily from current 0.25 mg twice a day and after 3 days, we will stop it. I feel the Ativan could be causing paradoxical disinhibition. We will adjust the Seroquel as needed. Continue rest of psychotropics unchanged. MAURICE GLASS MD DR: CHANDAN/nadeem JOB#: [id number] / [id number]
[2018-12-14] MEDS: CARBIDOPA/LEVODOPA 25/250MG TABLET PO SCH ×5 (05:37→22:04)
[2018-12-14] MEDS: POLYETHYLENE GLYCOL 3350 17 GM PACKET. PO SCH (08:05)
[2018-12-14] MEDS: PRAMIPEXOLE 0.25 MG TABLET. PO SCH ×3 (08:05→20:30)
[2018-12-14] MEDS: QUEtiapine 25 MG TABLET. PO SCH ×3 (08:05→20:30)
[2018-12-14] MEDS: metFORMIN 500 MG TABLET PO SCH ×2 (08:06→17:05)
[2018-12-14] MEDS: TAMSULOSIN 0.4 MG CAP.ER.24H. PO SCH (08:06)
[2018-12-14] MEDS: CITALOPRAM 20 MG TABLET. PO SCH (08:06)
[2018-12-14] MEDS: ALLOPURINOL 300 MG TABLET. PO SCH (08:06)
[2018-12-14] MEDS: MULTIVITAMIN with MINERAL TABLET. PO SCH (08:06)
[2018-12-14] MEDS: ACETAMINOPHEN 325 MG TABLET PO SCH ×2 (08:06→20:30)
[2018-12-14] MEDS: ASPIRIN ENTERIC COATED 81 MG TABLET.DR. PO SCH (08:06)
[2018-12-14] MEDS: CARBIDOPA/LEVODOPA CR 50/200MG TABLET.SA PO SCH ×2 (08:06→20:30)
[2018-12-14] MEDS: CLOPIDOGREL BISULFATE 75 MG TABLET PO SCH (08:06)
[2018-12-14] MEDS: ASCORBIC ACID 500 MG TABLET PO SCH (08:06)
[2018-12-14] MEDS: LORazepam 0.5 MG TABLET PO SCH (08:09)
[2018-12-14] MEDS: RASAGILINE MESYLATE 0.5 MG PO SCH (08:09)
[2018-12-14 10:49] VITALS: BP 133/69
[2018-12-14 15:24] VITALS: BP 126/68
--- NOTE | 2018-12-14 19:54 | PDOC ---
Exam Note: Liam Note: Please also refer to the separate dictated note~for this date of service dictated separately.~Patient seen individually. Discussed the patient with Nursing staff reviewed the chart.~Reviewed interim history and current functioning. Reviewed vital signs,~Labs/ Radiology~and current medications noted below. Continue current treatment with the changes noted in the dictated addendum note Assessment: Vital Signs/I&O: Vital Signs Date Time Temp Pulse Resp B/P (MAP) Pulse Ox O2 Delivery O2 Flow Rate FiO2 12/14/18 15:24 97.4 69 16 126/68 (87) 99 12/14/18 10:49 Room Air I & O 12/13/18 12/13/18 12/14/18 15:00 23:00 07:00 Intake Total 720 ml 240 ml 1200 ml Balance 720 ml 240 ml 1200 ml Labs: Laboratory Tests Test 12/14/18 07:23 12/14/18 19:22 Glucose (Fingerstick) 127 mg/dL (70-99) H 108 mg/dL (70-99) H Current Medications: I have reviewed the current psychotropics carefully including drug interactions. Risk benefit ratio favors no change other than as noted in my dictated progress note. Diagnosis: Problems: (1) Anxiety disorder (2) Dementia in Alzheimer's disease with delusions (3) Dementia in Alzheimer's disease with depression (4) Dementia, vascular, with delusions (5) Dementia, vascular, with depression (6) Impulse control disorder MAURICE GLASS MD Dec 14, 2018 19:54
[2018-12-14] MEDS: MIRTAZAPINE 7.5 MG TABLET. PO SCH (20:30)
[2018-12-14] MEDS: DIVALPROEX 125 MG CAP.SPRINK PO SCH (20:30)
[2018-12-14] MEDS: traZODone 100 MG TABLET. PO SCH (20:31)
[2018-12-15] MEDS: CARBIDOPA/LEVODOPA 25/250MG TABLET PO SCH ×5 (05:37→21:39)
[2018-12-15 05:53] VITALS: BP 164/80
[2018-12-15] MEDS: CITALOPRAM 20 MG TABLET. PO SCH (07:53)
[2018-12-15] MEDS: ASPIRIN ENTERIC COATED 81 MG TABLET.DR. PO SCH (07:53)
[2018-12-15] MEDS: POLYETHYLENE GLYCOL 3350 17 GM PACKET. PO SCH (07:53)
[2018-12-15] MEDS: PRAMIPEXOLE 0.25 MG TABLET. PO SCH ×3 (07:54→21:38)
[2018-12-15] MEDS: ACETAMINOPHEN 325 MG TABLET PO SCH ×2 (07:54→21:42)
[2018-12-15] MEDS: QUEtiapine 25 MG TABLET. PO SCH ×3 (07:54→21:38)
[2018-12-15] MEDS: CARBIDOPA/LEVODOPA CR 50/200MG TABLET.SA PO SCH ×2 (07:55→21:41)
[2018-12-15] MEDS: ASCORBIC ACID 500 MG TABLET PO SCH (07:55)
[2018-12-15] MEDS: TAMSULOSIN 0.4 MG CAP.ER.24H. PO SCH (07:55)
[2018-12-15] MEDS: metFORMIN 500 MG TABLET PO SCH ×2 (07:55→17:25)
[2018-12-15] MEDS: CLOPIDOGREL BISULFATE 75 MG TABLET PO SCH (07:55)
[2018-12-15] MEDS: MULTIVITAMIN with MINERAL TABLET. PO SCH (07:55)
[2018-12-15] MEDS: ALLOPURINOL 300 MG TABLET. PO SCH (07:55)
[2018-12-15] MEDS: RASAGILINE MESYLATE 0.5 MG PO SCH (07:56)
[2018-12-15 15:58] VITALS: BP 144/78
[2018-12-15 16:23] LABS: CLARITY,URINE CLOUDY; COLOR,URINE YELLOW
[2018-12-15 16:24] LABS: BACTERIA,URINE FEW /HPF (0-FEW); BILIRUBIN,URINE NEG (NEG); GLUCOSE,URINE NEG (NEG); NITRITE,URINE NEG (NEG); SQUAMOUS EPITHELIAL CELL,UR OCC /LPF; UROBILINOGEN,URINE 0.2 mg/dL (0.2 mg/dL); WBC,URINE 20-40 /HPF (0-4)
[2018-12-15] MEDS: DIVALPROEX 125 MG CAP.SPRINK PO SCH (21:38)
[2018-12-15] MEDS: MIRTAZAPINE 7.5 MG TABLET. PO SCH (21:39)
[2018-12-15] MEDS: traZODone 100 MG TABLET. PO SCH (21:39)
--- NOTE | 2018-12-15 21:40 | PN ---
DATE: 12/13/2018 PSYCHIATRIC PROGRESS NOTE This late entry 12/13/2018 covers elements not covered in my initial note. SUBJECTIVE: I met with the patient evening of 12/13/2018. The patient slept for 3/4 hours previous night. He has been somewhat sleepy, did go out on the patio, takes his medications in chocolate pudding. Walks with physical therapy staff, seems more oriented at times. REVIEW OF SYSTEMS: Ambulation impaired, in wheelchair. No CV, , pulmonary, eye, ENT system symptoms on review. He is feeding himself, which is an improvement. MENTAL STATUS EXAM: Oriented to himself and situation. Speech moderate latency, often responses monosyllabic. Abstraction fair, computation impaired, language function intact. Mood and affect still withdrawn, somewhat labile. LABORATORY DATA: Reviewed. IMPRESSION: Unchanged from initial note. PLAN: No change from initial note. MAN Tonya GLASS MD DR: CHANDAN/nadeem JOB#: [id number] / [id number]
--- NOTE | 2018-12-15 21:40 | PDOC ---
Exam Note: Liam Note: Please also refer to the separate dictated note~for this date of service dictated separately.~Patient seen individually. Discussed the patient with Nursing staff reviewed the chart.~Reviewed interim history and current functioning. Reviewed vital signs,~Labs/ Radiology~and current medications noted below. Continue current treatment with the changes noted in the dictated addendum note Assessment: Vital Signs/I&O: Vital Signs Date Time Temp Pulse Resp B/P (MAP) Pulse Ox O2 Delivery O2 Flow Rate FiO2 12/15/18 15:58 97.4 69 18 144/78 (100) 100 12/14/18 10:49 Room Air I & O 12/14/18 12/14/18 12/15/18 15:00 23:00 07:00 Intake Total 480 ml 600 ml Balance 480 ml 600 ml Labs: Laboratory Tests Test 12/15/18 07:43 12/15/18 15:20 12/15/18 19:17 Glucose (Fingerstick) 103 mg/dL (70-99) H 201 mg/dL (70-99) H Urine Collection Type Unknown Urine Color Yellow Urine Clarity Cloudy Urine pH 5.5 Urine Specific [place] 1.025 Urine Protein 30 mg/dl (NEG-TRACE) Urine Glucose (UA) Neg mg/dL (NEG) Urine Ketones (Stick) Trace mg/dL (NEG) Urine Blood Trace (NEG) Urine Nitrite Neg (NEG) Urine Bilirubin Neg (NEG) Urine Urobilinogen Dipstick 0.2 mg/dL (0.2 mg/dL) Urine Leukocyte Esterase Mod (NEG) Urine RBC 1-2 /HPF (0-2) Urine WBC 20-40 /HPF (0-4) Urine Squamous Epithelial Cells Occ /LPF Urine Bacteria Few /HPF (0-FEW) Urine Mucus Slight /LPF Current Medications: I have reviewed the current psychotropics carefully including drug interactions. Risk benefit ratio favors no change other than as noted in my dictated progress note. Diagnosis: Problems: (1) Anxiety disorder (2) Dementia in Alzheimer's disease with delusions (3) Dementia in Alzheimer's disease with depression (4) Dementia, vascular, with delusions (5) Dementia, vascular, with depression (6) Impulse control disorder MAURICE GLASS MD Dec 15, 2018 21:40
--- NOTE | 2018-12-15 21:46 | PN ---
DATE: 12/14/2018 This late entry, 12/14/2018, covers elements not covered in my initial note. SUBJECTIVE: I met with the patient evening of 12/14/2018. The patient slept 4 hours previous night. He has been somewhat sedated during the day, was agitated, threw his water cup across the room for no real reason. REVIEW OF SYSTEMS: Ambulation impaired, in wheelchair. No CV, , pulmonary, eye, ENT system symptoms on review. Reliability varies. He still feeding himself. MENTAL STATUS EXAM: Oriented to himself and situation. Speech is moderate latency, often responses monosyllabic. Abstraction fair, computation impaired, language function intact, attention span short. Mood and affect is withdrawn. LABORATORY DATA: Reviewed. IMPRESSION: Unchanged from initial note. PLAN: No change from initial note. MAN Tonya GLASS MD DR: CHANDAN/nadeem JOB#: [id number] / [id number]
[2018-12-16] MEDS: traZODone 100 MG TABLET. PO PRN (00:16)
[2018-12-16] MEDS: LORazepam 0.5 MG TABLET PO PRN (00:16)
[2018-12-16 06:19] VITALS: BP 155/82
[2018-12-16] MEDS: CARBIDOPA/LEVODOPA 25/250MG TABLET PO SCH ×5 (06:48→21:14)
[2018-12-16 07:19] LABS: BASO % 1 % (0-3); EOS # 0.2 x10^3/uL (0.0-0.7); EOS % 3 % (0-3); HEMATOCRIT 36.8 % (39.0-53.0); HEMOGLOBIN 12.4 g/dL (13.0-17.5); LYMPH % 14 % (24-48); MEAN CORPUSCULAR HEMOGLOBIN 33 pg (25-35); MEAN CORPUSCULAR HGB CONC 34 g/dL (31-37); MEAN CORPUSCULAR VOLUME 96 fL (79-100); MONO # 0.6 x10^3/uL (0.0-1.1); MONO % 8 % (0-9); NEUT # 5.5 x10^3uL (1.8-7.7); NEUT % 75 % (31-73); PLATELET COUNT 213 x10^3/uL (140-400); RED BLOOD COUNT 3.82 x10^6/uL (4.30-5.70); RED CELL DISTRIBUTION WIDTH 14.2 % (11.5-14.5); WHITE BLOOD COUNT 7.3 x10^3/uL (4.0-11.0)
[2018-12-16 07:31] LABS: ALBUMIN 3.3 g/dL (3.4-5.0); ALBUMIN/GLOBULIN RATIO 0.9 (1.0-1.7); CALCIUM 9.1 mg/dL (8.5-10.1); CREATININE 1.1 mg/dL (0.7-1.3); GFR 64.1; POTASSIUM 4.1 mmol/L (3.5-5.1); TOTAL BILIRUBIN 0.4 mg/dL (0.2-1.0); TOTAL PROTEIN 6.8 g/dL (6.4-8.2)
[2018-12-16] MEDS: metFORMIN 500 MG TABLET PO SCH ×2 (09:09→16:53)
[2018-12-16] MEDS: ASPIRIN ENTERIC COATED 81 MG TABLET.DR. PO SCH (09:09)
[2018-12-16] MEDS: CITALOPRAM 20 MG TABLET. PO SCH (09:10)
[2018-12-16] MEDS: TAMSULOSIN 0.4 MG CAP.ER.24H. PO SCH (09:10)
[2018-12-16] MEDS: RASAGILINE MESYLATE 0.5 MG PO SCH (09:10)
[2018-12-16] MEDS: POLYETHYLENE GLYCOL 3350 17 GM PACKET. PO SCH (09:10)
[2018-12-16] MEDS: PRAMIPEXOLE 0.25 MG TABLET. PO SCH ×3 (09:11→21:13)
[2018-12-16] MEDS: CLOPIDOGREL BISULFATE 75 MG TABLET PO SCH (09:13)
[2018-12-16] MEDS: CARBIDOPA/LEVODOPA CR 50/200MG TABLET.SA PO SCH ×3 (09:15→21:14)
[2018-12-16] MEDS: QUEtiapine 25 MG TABLET. PO SCH ×3 (09:15→21:15)
[2018-12-16] MEDS: MULTIVITAMIN with MINERAL TABLET. PO SCH (09:16)
[2018-12-16] MEDS: ACETAMINOPHEN 325 MG TABLET PO SCH ×2 (09:16→21:14)
[2018-12-16] MEDS: ALLOPURINOL 300 MG TABLET. PO SCH (09:16)
[2018-12-16] MEDS: ASCORBIC ACID 500 MG TABLET PO SCH (09:16)
[2018-12-16 16:20] VITALS: BP 151/77
[2018-12-16] MEDS: DIVALPROEX 125 MG CAP.SPRINK PO SCH (21:13)
[2018-12-16] MEDS: MIRTAZAPINE 7.5 MG TABLET. PO SCH (21:14)
[2018-12-16] MEDS: traZODone 100 MG TABLET. PO SCH (21:14)
--- NOTE | 2018-12-16 21:37 | PDOC ---
Exam Note: Liam Note: Please also refer to the separate dictated note~for this date of service dictated separately.~Patient seen individually. Discussed the patient with Nursing staff reviewed the chart.~Reviewed interim history and current functioning. Reviewed vital signs,~Labs/ Radiology~and current medications noted below. Continue current treatment with the changes noted in the dictated addendum note Assessment: Vital Signs/I&O: Vital Signs Date Time Temp Pulse Resp B/P (MAP) Pulse Ox O2 Delivery O2 Flow Rate FiO2 12/16/18 16:20 98.4 73 16 151/77 (101) 96 12/14/18 10:49 Room Air I & O 12/15/18 12/15/18 12/16/18 15:00 23:00 07:00 Intake Total 720 ml 240 ml 120 ml Balance 720 ml 240 ml 120 ml Labs: Laboratory Tests Test 12/16/18 07:04 12/16/18 07:12 12/16/18 19:36 White Blood Count 7.3 x10^3/uL (4.0-11.0) Red Blood Count 3.82 x10^6/uL (4.30-5.70) L Hemoglobin 12.4 g/dL (13.0-17.5) L Hematocrit 36.8 % (39.0-53.0) L Mean Corpuscular Volume 96 fL (79-100) Mean Corpuscular Hemoglobin 33 pg (25-35) Mean Corpuscular Hemoglobin Concent 34 g/dL (31-37) Red Cell Distribution Width 14.2 % (11.5-14.5) Platelet Count 213 x10^3/uL (140-400) Neutrophils (%) (Auto) 75 % (31-73) H Lymphocytes (%) (Auto) 14 % (24-48) L Monocytes (%) (Auto) 8 % (0-9) Eosinophils (%) (Auto) 3 % (0-3) Basophils (%) (Auto) 1 % (0-3) Neutrophils # (Auto) 5.5 x10^3uL (1.8-7.7) Lymphocytes # (Auto) 1.0 x10^3/uL (1.0-4.8) Monocytes # (Auto) 0.6 x10^3/uL (0.0-1.1) Eosinophils # (Auto) 0.2 x10^3/uL (0.0-0.7) Basophils # (Auto) 0.0 x10^3/uL (0.0-0.2) Sodium Level 141 mmol/L (136-145) Potassium Level 4.1 mmol/L (3.5-5.1) Chloride Level 105 mmol/L (98-107) Carbon Dioxide Level 29 mmol/L (21-32) Anion Gap 7 (6-14) Blood Urea Nitrogen 32 mg/dL (8-26) H Creatinine 1.1 mg/dL (0.7-1.3) Estimated GFR (Cockcroft-Gault) 64.1 BUN/Creatinine Ratio 29 (6-20) H Glucose Level 127 mg/dL (70-99) H Calcium Level 9.1 mg/dL (8.5-10.1) Total Bilirubin 0.4 mg/dL (0.2-1.0) Aspartate Amino Transferase (AST) 30 U/L (15-37) Alanine Aminotransferase (ALT) 6 U/L (16-63) L Alkaline Phosphatase 92 U/L (46-116) Total Protein 6.8 g/dL (6.4-8.2) Albumin 3.3 g/dL (3.4-5.0) L Albumin/Globulin Ratio 0.9 (1.0-1.7) L Glucose (Fingerstick) 93 mg/dL (70-99) 124 mg/dL (70-99) H Current Medications: I have reviewed the current psychotropics carefully including drug interactions. Risk benefit ratio favors no change other than as noted in my dictated progress note. Diagnosis: Problems: (1) Anxiety disorder (2) Dementia in Alzheimer's disease with delusions (3) Dementia in Alzheimer's disease with depression (4) Dementia, vascular, with delusions (5) Dementia, vascular, with depression (6) Impulse control disorder MAURICE GLASS MD Dec 16, 2018 21:36
--- NOTE | 2018-12-16 22:04 | PN ---
DATE: 12/15/2018 PSYCHIATRIC PROGRESS NOTE This late entry 12/15/2018 covers elements not covered in my initial note. SUBJECTIVE: I met with the patient evening of 12/15/2018. The patient slept 7-1/4 hours previous night. UA is negative. He was combative when blood sugars were being checked, but he is more awake during the day, still in Broda chair, leaning sideways. Ativan scheduled has been discontinued. REVIEW OF SYSTEMS: Ambulation impaired, in Broda chair. No CV, , pulmonary, eye, ENT system symptoms on review. MENTAL STATUS EXAM: Oriented to himself and situation. Speech moderate latency, low in rate and rhythm, often responses monosyllabic and speech is affected by his Parkinson's. Abstraction fair, computation impaired, language function intact. Mood and affect somewhat dysphoric, anxious. LABORATORY DATA: Reviewed. IMPRESSION: Unchanged from initial note. PLAN: No change from initial note. MAURICE GLASS MD DR: CHANDAN/nadeem JOB#: [id number] / [id number]
[2018-12-17] MEDS: traZODone 100 MG TABLET. PO PRN (01:02)
[2018-12-17] MEDS: CARBIDOPA/LEVODOPA 25/250MG TABLET PO SCH ×5 (05:40→21:23)
[2018-12-17 05:55] VITALS: BP 167/72
[2018-12-17] MEDS: QUEtiapine 25 MG TABLET. PO SCH ×3 (07:41→21:16)
[2018-12-17] MEDS: metFORMIN 500 MG TABLET PO SCH ×2 (07:41→17:20)
[2018-12-17] MEDS: ASCORBIC ACID 500 MG TABLET PO SCH (07:42)
[2018-12-17] MEDS: CLOPIDOGREL BISULFATE 75 MG TABLET PO SCH (07:42)
[2018-12-17] MEDS: ALLOPURINOL 300 MG TABLET. PO SCH (07:42)
[2018-12-17] MEDS: ASPIRIN ENTERIC COATED 81 MG TABLET.DR. PO SCH (07:43)
[2018-12-17] MEDS: CARBIDOPA/LEVODOPA CR 50/200MG TABLET.SA PO SCH ×2 (07:43→21:19)
[2018-12-17] MEDS: POLYETHYLENE GLYCOL 3350 17 GM PACKET. PO SCH (07:43)
[2018-12-17] MEDS: PRAMIPEXOLE 0.25 MG TABLET. PO SCH ×3 (07:43→21:15)
[2018-12-17] MEDS: TAMSULOSIN 0.4 MG CAP.ER.24H. PO SCH (07:43)
[2018-12-17] MEDS: MULTIVITAMIN with MINERAL TABLET. PO SCH (07:43)
[2018-12-17] MEDS: CITALOPRAM 20 MG TABLET. PO SCH (07:43)
[2018-12-17] MEDS: ACETAMINOPHEN 325 MG TABLET PO SCH ×2 (07:44→21:18)
[2018-12-17] MEDS: RASAGILINE MESYLATE 0.5 MG PO SCH (07:45)
[2018-12-17 15:44] VITALS: BP 133/68
[2018-12-17] MEDS: traZODone 100 MG TABLET. PO SCH (21:19)
[2018-12-17] MEDS: DIVALPROEX 125 MG CAP.SPRINK PO SCH (21:19)
[2018-12-17] MEDS: MIRTAZAPINE 15 MG TABLET PO SCH (21:23)
--- NOTE | 2018-12-17 21:54 | PDOC ---
Exam Note: Liam Note: Please also refer to the separate dictated note~for this date of service dictated separately.~Patient seen individually. Discussed the patient with Nursing staff reviewed the chart.~Reviewed interim history and current functioning. Reviewed vital signs,~Labs/ Radiology~and current medications noted below. Continue current treatment with the changes noted in the dictated addendum note Assessment: Vital Signs/I&O: Vital Signs Date Time Temp Pulse Resp B/P (MAP) Pulse Ox O2 Delivery O2 Flow Rate FiO2 12/17/18 15:44 97.5 71 16 133/68 (89) 98 Room Air I & O 12/16/18 12/16/18 12/17/18 15:00 23:00 07:00 Intake Total 680 ml 240 ml 240 ml Balance 680 ml 240 ml 240 ml Labs: Laboratory Tests Test 12/17/18 07:43 12/17/18 19:19 Glucose (Fingerstick) 115 mg/dL (70-99) H 183 mg/dL (70-99) H Current Medications: Meds: Current Medications Medications (Trade) Dose Ordered Sig/Harinder Route PRN Reason Start Time Stop Time Status Last Admin Dose Admin Mirtazapine (Remeron) 15 mg QHS PO 12/17/18 18:30 12/17/18 21:23 I have reviewed the current psychotropics carefully including drug interactions. Risk benefit ratio favors no change other than as noted in my dictated progress note. Diagnosis: Problems: (1) Anxiety disorder (2) Dementia in Alzheimer's disease with delusions (3) Dementia in Alzheimer's disease with depression (4) Dementia, vascular, with delusions (5) Dementia, vascular, with depression (6) Impulse control disorder MAURICE GLASS MD Dec 17, 2018 21:54
--- NOTE | 2018-12-18 03:28 | PN ---
DATE: 12/16/2018 PSYCHIATRIC PROGRESS NOTE This late entry of 12/16/2018, covers elements not covered in my initial note. SUBJECTIVE: I met with the patient in evening of 12/16/2018. The patient slept 4-1/4 hours previous night. He has been anxious, restless, somewhat confused. "I just want to wear pajama pants." [employer] consultant, he was oriented x 4. Later, confused. Urine C and S is awaited. REVIEW OF SYSTEMS: Ambulation impaired, in wheelchair. No CV, , pulmonary, eye system symptoms on review. MENTAL STATUS EXAM: Oriented to himself. Insight, judgment, recent memory is impaired. Language function intact. Attention span short. Mood and affect somewhat withdrawn. LABORATORY DATA: Reviewed. IMPRESSION: Unchanged from initial note. PLAN: No change from initial note. MAN Tonya GLASS MD DR: CHANDAN/nadeem JOB#: [id number] / [id number]
[2018-12-18 05:59] VITALS: BP 125/63
[2018-12-18] MEDS: CARBIDOPA/LEVODOPA 25/250MG TABLET PO SCH ×5 (06:10→19:33)
[2018-12-18] MEDS: MULTIVITAMIN with MINERAL TABLET. PO SCH (07:32)
[2018-12-18] MEDS: TAMSULOSIN 0.4 MG CAP.ER.24H. PO SCH (07:32)
[2018-12-18] MEDS: PRAMIPEXOLE 0.25 MG TABLET. PO SCH ×3 (07:32→19:33)
[2018-12-18] MEDS: CITALOPRAM 20 MG TABLET. PO SCH (07:32)
[2018-12-18] MEDS: QUEtiapine 25 MG TABLET. PO SCH ×3 (07:33→19:33)
[2018-12-18] MEDS: CARBIDOPA/LEVODOPA CR 50/200MG TABLET.SA PO SCH ×2 (07:33→19:34)
[2018-12-18] MEDS: CLOPIDOGREL BISULFATE 75 MG TABLET PO SCH (07:33)
[2018-12-18] MEDS: POLYETHYLENE GLYCOL 3350 17 GM PACKET. PO SCH (07:33)
[2018-12-18] MEDS: ASPIRIN ENTERIC COATED 81 MG TABLET.DR. PO SCH (07:33)
[2018-12-18] MEDS: ASCORBIC ACID 500 MG TABLET PO SCH (07:33)
[2018-12-18] MEDS: ACETAMINOPHEN 325 MG TABLET PO SCH ×2 (07:33→19:34)
[2018-12-18] MEDS: ALLOPURINOL 300 MG TABLET. PO SCH (07:33)
[2018-12-18] MEDS: metFORMIN 500 MG TABLET PO SCH ×2 (07:36→16:59)
[2018-12-18] MEDS: RASAGILINE MESYLATE 0.5 MG PO SCH (07:37)
[2018-12-18 15:40] VITALS: BP 104/72
--- NOTE | 2018-12-18 16:26 | RAD ---
CT HEAD INDICATION: Change in mental status COMPARISON: None Available. Exposure: One or more of the following individualized dose reduction techniques were utilized for this examination: 1. Automated exposure control 2. Adjustment of the mA and/or kV according to patient size 3. Use of iterative reconstruction technique TECHNIQUE: 5 mm contiguous axial images were obtained from the skull base to the vertex in both bone and soft tissue algorithm. FINDINGS: Mild bilateral periventricular white matter hypodensities likely chronic small vessel ischemic disease. No evidence of acute intracranial hemorrhage. No extra-axial fluid collections. No mass effect or midline shift. Ventricular size is appropriate. Basal cisterns are patent. Old right zygomatic arch fracture.Winters-white differentiation is preserved.Globes and orbits are within normal limits. Paranasal sinuses and mastoid air cells are clear. IMPRESSION: No acute intracranial findings. Electronically signed by: Stanley Mendez MD (12/18/2018 4:24 PM) [place] [id number]
[2018-12-18] MEDS: DIVALPROEX 125 MG CAP.SPRINK PO SCH (19:32)
[2018-12-18] MEDS: AMOXICILLIN 250 MG CAPSULE PO SCH (19:32)
[2018-12-18] MEDS: LACTOBACILLUS RHAMNOSUS GG 1 CAPSULE. PO SCH (19:32)
[2018-12-18] MEDS: traZODone 100 MG TABLET. PO SCH (19:33)
[2018-12-18] MEDS: MIRTAZAPINE 15 MG TABLET PO SCH (19:33)
--- NOTE | 2018-12-18 21:58 | PDOC ---
Exam Note: Liam Note: Please also refer to the separate dictated note~for this date of service dictated separately.~Patient seen individually. Discussed the patient with Nursing staff reviewed the chart.~Reviewed interim history and current functioning. Reviewed vital signs,~Labs/ Radiology~and current medications noted below. Continue current treatment with the changes noted in the dictated addendum note Assessment: Vital Signs/I&O: Vital Signs Date Time Temp Pulse Resp B/P (MAP) Pulse Ox O2 Delivery O2 Flow Rate FiO2 12/18/18 15:40 98.3 83 21 104/72 (83) 93 12/17/18 15:44 Room Air I & O 12/17/18 12/17/18 12/18/18 15:00 23:00 07:00 Intake Total 480 ml 240 ml 240 ml Balance 480 ml 240 ml 240 ml Labs: Laboratory Tests Test 12/18/18 07:05 12/18/18 19:13 Glucose (Fingerstick) 100 mg/dL (70-99) H 121 mg/dL (70-99) H Current Medications: Meds: Current Medications Medications (Trade) Dose Ordered Sig/Harinder Route PRN Reason Start Time Stop Time Status Last Admin Dose Admin Amoxicillin (Amoxil) 250 mg [id number] PO 12/18/18 21:00 12/28/18 10:00 12/18/18 19:34 Lactobacillus Rhamnosus (Culturelle) 1 cap BID PO 12/18/18 21:00 12/18/18 19:34 I have reviewed the current psychotropics carefully including drug interactions. Risk benefit ratio favors no change other than as noted in my dictated progress note. Diagnosis: Problems: (1) Anxiety disorder (2) Dementia in Alzheimer's disease with delusions (3) Dementia in Alzheimer's disease with depression (4) Dementia, vascular, with delusions (5) Dementia, vascular, with depression (6) Impulse control disorder MAURICE GLASS MD Dec 18, 2018 21:58
--- NOTE | 2018-12-18 22:22 | PN ---
DATE: 12/17/2018 PSYCHIATRIC PROGRESS NOTE This late entry 12/17/2018 covers elements not covered in my initial note. SUBJECTIVE: I met with the patient evening of 12/17/2018. Maxx Kaminski RN, the patient slept just one hour previous night. He slept in the morning, had received repeat trazodone at 11:30 p.m., which probably accounted for this. 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 culture is pending. REVIEW OF SYSTEMS: Ambulation impaired, in wheelchair. No CV, , PULMONARY, EYE, ENT system symptoms on review. MENTAL STATUS EXAM: Oriented to himself and situation. Speech moderate, latency low in rate and rhythm, low in volume, often responses monosyllabic. Eye contact poor, abstraction fair, computation impaired, language function intact. Mood and affect is withdrawn. LABORATORY DATA: Reviewed. IMPRESSION: Unchanged from initial note. Major depressive disorder, recurrent with psychotic features, probably major neurocognitive disorder, early possibly Lewy body with delusion, depression, behavioral disturbance, rule out urinary tract infection, rest unchanged. PLAN: Maintain Seroquel along with Ativan p.r.n. He is on Sinemet, Depakote Sprinkle, Celexa, trazodone, Remeron 7.5 mg at bedtime. MAN Tonya GLASS MD DR: CHANDAN/nadeem JOB#: [id number] / [id number]
[2018-12-19 05:41] VITALS: BP 120/72
[2018-12-19] MEDS: CARBIDOPA/LEVODOPA 25/250MG TABLET PO SCH ×5 (06:14→20:08)
[2018-12-19] MEDS: PRAMIPEXOLE 0.25 MG TABLET. PO SCH ×3 (07:31→20:08)
[2018-12-19] MEDS: CLOPIDOGREL BISULFATE 75 MG TABLET PO SCH (07:31)
[2018-12-19] MEDS: LACTOBACILLUS RHAMNOSUS GG 1 CAPSULE. PO SCH ×2 (07:31→20:07)
[2018-12-19] MEDS: ASCORBIC ACID 500 MG TABLET PO SCH (07:32)
[2018-12-19] MEDS: TAMSULOSIN 0.4 MG CAP.ER.24H. PO SCH (07:32)
[2018-12-19] MEDS: MULTIVITAMIN with MINERAL TABLET. PO SCH (07:32)
[2018-12-19] MEDS: metFORMIN 500 MG TABLET PO SCH ×2 (07:32→17:00)
[2018-12-19] MEDS: AMOXICILLIN 250 MG CAPSULE PO SCH ×3 (07:32→20:07)
[2018-12-19] MEDS: ACETAMINOPHEN 325 MG TABLET PO SCH ×2 (07:32→20:08)
[2018-12-19] MEDS: CARBIDOPA/LEVODOPA CR 50/200MG TABLET.SA PO SCH ×2 (07:32→20:09)
[2018-12-19] MEDS: QUEtiapine 25 MG TABLET. PO SCH ×3 (07:32→20:09)
[2018-12-19] MEDS: ASPIRIN ENTERIC COATED 81 MG TABLET.DR. PO SCH (07:32)
[2018-12-19] MEDS: POLYETHYLENE GLYCOL 3350 17 GM PACKET. PO SCH (07:33)
[2018-12-19] MEDS: RASAGILINE MESYLATE 0.5 MG PO SCH (07:33)
[2018-12-19] MEDS: SERTRALINE 50 MG TABLET. PO SCH (07:34)
[2018-12-19] MEDS: ALLOPURINOL 300 MG TABLET. PO SCH (07:34)
[2018-12-19 16:29] VITALS: BP 128/66
[2018-12-19] MEDS: DIVALPROEX 125 MG CAP.SPRINK PO SCH (20:07)
[2018-12-19] MEDS: traZODone 100 MG TABLET. PO SCH (20:07)
[2018-12-19] MEDS: MIRTAZAPINE 15 MG TABLET PO SCH (20:08)
--- NOTE | 2018-12-19 21:38 | PDOC ---
Exam Note: Liam Note: Please also refer to the separate dictated note~for this date of service dictated separately.~Patient seen individually. Discussed the patient with Nursing staff reviewed the chart.~Reviewed interim history and current functioning. Reviewed vital signs,~Labs/ Radiology~and current medications noted below. Continue current treatment with the changes noted in the dictated addendum note Assessment: Vital Signs/I&O: Vital Signs Date Time Temp Pulse Resp B/P (MAP) Pulse Ox O2 Delivery O2 Flow Rate FiO2 12/19/18 16:29 97.2 73 20 128/66 (86) 100 12/17/18 15:44 Room Air I & O 12/18/18 12/18/18 12/19/18 14:59 22:59 06:59 Intake Total 360 ml 240 ml 120 ml Balance 360 ml 240 ml 120 ml Labs: Laboratory Tests Test 12/19/18 07:47 12/19/18 19:21 Glucose (Fingerstick) 111 mg/dL (70-99) H 169 mg/dL (70-99) H Current Medications: Meds: Current Medications Medications (Trade) Dose Ordered Sig/Harinder Route PRN Reason Start Time Stop Time Status Last Admin Dose Admin Sertraline HCl (Zoloft) 50 mg DAILY PO 12/19/18 09:00 12/19/18 07:34 I have reviewed the current psychotropics carefully including drug interactions. Risk benefit ratio favors no change other than as noted in my dictated progress note. Diagnosis: Problems: (1) Anxiety disorder (2) Dementia in Alzheimer's disease with delusions (3) Dementia in Alzheimer's disease with depression (4) Dementia, vascular, with delusions (5) Dementia, vascular, with depression (6) Impulse control disorder MAURICE GLASS MD Dec 19, 2018 21:38
[2018-12-20] MEDS: CARBIDOPA/LEVODOPA 25/250MG TABLET PO SCH ×5 (04:49→19:52)
[2018-12-20 05:43] VITALS: BP 159/81
[2018-12-20] MEDS: CARBIDOPA/LEVODOPA CR 50/200MG TABLET.SA PO SCH ×2 (07:55→19:50)
[2018-12-20] MEDS: MULTIVITAMIN with MINERAL TABLET. PO SCH (07:55)
[2018-12-20] MEDS: QUEtiapine 25 MG TABLET. PO SCH ×3 (07:55→19:50)
[2018-12-20] MEDS: TAMSULOSIN 0.4 MG CAP.ER.24H. PO SCH (07:55)
[2018-12-20] MEDS: ACETAMINOPHEN 325 MG TABLET PO SCH ×2 (07:55→19:50)
[2018-12-20] MEDS: SERTRALINE 50 MG TABLET. PO SCH (07:55)
[2018-12-20] MEDS: metFORMIN 500 MG TABLET PO SCH ×2 (07:55→17:42)
[2018-12-20] MEDS: CLOPIDOGREL BISULFATE 75 MG TABLET PO SCH (07:56)
[2018-12-20] MEDS: LACTOBACILLUS RHAMNOSUS GG 1 CAPSULE. PO SCH ×2 (07:56→19:49)
[2018-12-20] MEDS: ASPIRIN ENTERIC COATED 81 MG TABLET.DR. PO SCH (07:56)
[2018-12-20] MEDS: PRAMIPEXOLE 0.25 MG TABLET. PO SCH ×3 (07:56→19:50)
[2018-12-20] MEDS: AMOXICILLIN 250 MG CAPSULE PO SCH ×3 (07:56→19:50)
[2018-12-20] MEDS: ASCORBIC ACID 500 MG TABLET PO SCH (07:56)
[2018-12-20] MEDS: ALLOPURINOL 300 MG TABLET. PO SCH (07:56)
[2018-12-20] MEDS: POLYETHYLENE GLYCOL 3350 17 GM PACKET. PO SCH (07:57)
[2018-12-20] MEDS: RASAGILINE MESYLATE 0.5 MG PO SCH (07:58)
[2018-12-20 16:34] VITALS: BP 115/68
[2018-12-20] MEDS: MIRTAZAPINE 15 MG TABLET PO SCH (19:49)
[2018-12-20] MEDS: DIVALPROEX 125 MG CAP.SPRINK PO SCH (19:49)
[2018-12-20] MEDS: traZODone 100 MG TABLET. PO SCH (19:49)
--- NOTE | 2018-12-20 21:59 | PDOC ---
Exam Note: Liam Note: Please also refer to the separate dictated note~for this date of service dictated separately.~Patient seen individually. Discussed the patient with Nursing staff reviewed the chart.~Reviewed interim history and current functioning. Reviewed vital signs,~Labs/ Radiology~and current medications noted below. Continue current treatment with the changes noted in the dictated addendum note Assessment: Vital Signs/I&O: Vital Signs Date Time Temp Pulse Resp B/P (MAP) Pulse Ox O2 Delivery O2 Flow Rate FiO2 12/20/18 16:34 97.5 69 16 115/68 (84) 96 12/17/18 15:44 Room Air I & O 12/19/18 12/19/18 12/20/18 15:00 23:00 07:00 Intake Total 600 ml 240 ml 120 ml Balance 600 ml 240 ml 120 ml Labs: Laboratory Tests Test 12/20/18 07:25 Glucose (Fingerstick) 111 mg/dL (70-99) H Current Medications: I have reviewed the current psychotropics carefully including drug interactions. Risk benefit ratio favors no change other than as noted in my dictated progress note. Diagnosis: Problems: (1) Anxiety disorder (2) Dementia in Alzheimer's disease with delusions (3) Dementia in Alzheimer's disease with depression (4) Dementia, vascular, with delusions (5) Dementia, vascular, with depression (6) Impulse control disorder MAURICE GLASS MD Dec 20, 2018 21:59
[2018-12-21 05:10] VITALS: BP 156/82
[2018-12-21] MEDS: CARBIDOPA/LEVODOPA 25/250MG TABLET PO SCH ×5 (05:26→20:12)
[2018-12-21] MEDS: metFORMIN 500 MG TABLET PO SCH ×2 (08:00→17:00)
[2018-12-21] MEDS: ASPIRIN ENTERIC COATED 81 MG TABLET.DR. PO SCH (08:00)
--- NOTE | 2018-12-21 08:39 | PN ---
DATE: 12/18/2018 PSYCHIATRIC PROGRESS NOTE This late entry 12/18/2018 covers elements not covered in my initial note. SUBJECTIVE: I met with the patient evening of 12/18/2018. The patient slept 5 hours previous night. Appetite 75-100%. The patient was also staffed at a treatment team meeting with the entire team earlier in the day. He was combative in the morning with cares, somewhat restless, but compliant with medications and assessment later in the day. One of the nursing facilities has denied him per social service staff. Further careful review of his symptoms reflect possibility of diagnosis of Lewy body dementia. We are looking for his CT head from [facility]. REVIEW OF SYSTEMS: Ambulation impaired. No CV, , pulmonary, eye, ENT system symptoms on review. Reliability poor. MENTAL STATUS EXAM: Oriented to himself, at times situation, other times, very well oriented. Abstraction fair, computation impaired, language function intact, attention span short. Mood and affect somewhat anxious, labile, showing improvement. LABORATORY DATA: Reviewed. IMPRESSION: Unchanged from initial note. PLAN: No change from initial note. MAN Tonya GLASS MD DR: CHANDAN/nadeem JOB#: [id number] / [id number]
[2018-12-21] MEDS: MULTIVITAMIN with MINERAL TABLET. PO SCH (09:00)
[2018-12-21] MEDS: POLYETHYLENE GLYCOL 3350 17 GM PACKET. PO SCH (09:00)
[2018-12-21] MEDS: CARBIDOPA/LEVODOPA CR 50/200MG TABLET.SA PO SCH ×2 (09:00→20:10)
[2018-12-21] MEDS: PRAMIPEXOLE 0.25 MG TABLET. PO SCH ×3 (09:00→20:09)
[2018-12-21] MEDS: SERTRALINE 50 MG TABLET. PO SCH (09:00)
[2018-12-21] MEDS: CLOPIDOGREL BISULFATE 75 MG TABLET PO SCH (09:00)
[2018-12-21] MEDS: ASCORBIC ACID 500 MG TABLET PO SCH (09:00)
[2018-12-21] MEDS: QUEtiapine 25 MG TABLET. PO SCH ×3 (09:00→20:10)
[2018-12-21] MEDS: RASAGILINE MESYLATE 0.5 MG PO SCH (09:00)
[2018-12-21] MEDS: TAMSULOSIN 0.4 MG CAP.ER.24H. PO SCH (09:00)
[2018-12-21] MEDS: ACETAMINOPHEN 325 MG TABLET PO SCH ×2 (09:00→20:09)
[2018-12-21] MEDS: ALLOPURINOL 300 MG TABLET. PO SCH (09:00)
[2018-12-21] MEDS: AMOXICILLIN 250 MG CAPSULE PO SCH ×3 (09:00→20:10)
[2018-12-21] MEDS: LACTOBACILLUS RHAMNOSUS GG 1 CAPSULE. PO SCH ×2 (09:00→20:09)
[2018-12-21 15:51] VITALS: BP 179/88
[2018-12-21] MEDS: DIVALPROEX 125 MG CAP.SPRINK PO SCH (20:10)
[2018-12-21] MEDS: traZODone 100 MG TABLET. PO SCH (20:10)
[2018-12-21] MEDS: MIRTAZAPINE 15 MG TABLET PO SCH (20:10)
--- NOTE | 2018-12-21 20:30 | PN ---
DATE: 12/20/2018 PSYCHIATRIC PROGRESS NOTE This late entry of 12/20/2018 covers elements not covered in my initial note. SUBJECTIVE: I met with the patient in the evening of 12/20/2018. The patient slept 6-1/4 hours previous night. He was compliant with his morning medications, asking what time it was. His came for during the lunch visiting hours and then he was asking for her. When staff said she had left, he was fixated that they were lying to him. Cognition vacillates during the day consistent with his Lewy body dementia. DICTATION ENDS HERE MAN Tonya GLASS MD DR: CHANDAN/nadeem JOB#: [id number] / [id number]
[2018-12-21 22:00] LABS: BASO % 0 % (0-3); EOS # 0.1 x10^3/uL (0.0-0.7); EOS % 2 % (0-3); HEMATOCRIT 34.9 % (39.0-53.0); HEMOGLOBIN 11.6 g/dL (13.0-17.5); LYMPH % 13 % (24-48); MEAN CORPUSCULAR HEMOGLOBIN 32 pg (25-35); MEAN CORPUSCULAR HGB CONC 33 g/dL (31-37); MEAN CORPUSCULAR VOLUME 97 fL (79-100); MONO # 0.7 x10^3/uL (0.0-1.1); MONO % 8 % (0-9); NEUT # 6.2 x10^3uL (1.8-7.7); NEUT % 77 % (31-73); PLATELET COUNT 215 x10^3/uL (140-400); RED BLOOD COUNT 3.62 x10^6/uL (4.30-5.70); RED CELL DISTRIBUTION WIDTH 14.6 % (11.5-14.5)
--- NOTE | 2018-12-21 22:04 | PN ---
DATE: 12/19/2018 PSYCHIATRIC PROGRESS NOTE This late entry 12/19/2018 covers elements not covered in my initial note. SUBJECTIVE: I met with the patient evening of 12/19/2018. The patient slept 5-1/4 hours previous night. He has been combative at times, resistive with cares, refusing medications, combative during vital signs. He does have a UTI and is on Amoxil for this, and this may well account for the agitation, worsening confusion together with this probable Lewy body dementia. REVIEW OF SYSTEMS: Ambulation impaired, in wheelchair. No CV, , pulmonary, eye, ENT system symptoms on review. Reliability varies. MENTAL STATUS EXAM: Oriented to himself and situation at times. Speech has some latency, low in rate and rhythm, low in volume consistent with his Parkinson's. Abstraction fair, computation impaired, language function intact, attention span short. Mood and affect somewhat withdrawn, anxious, labile at times. LABORATORY DATA: Reviewed. IMPRESSION: Unchanged from initial note including urinary tract infection, on Amoxil. PLAN: Continue psychotropics from initial note. Depending on how he does post-resolution of UTI, we may need to increase the Depakote to reach therapeutic level. MAURICE GLASS MD DR: CHANDAN/nadeem JOB#: [id number] / [id number]
[2018-12-21 22:27] LABS: ALBUMIN 3.1 g/dL (3.4-5.0); CALCIUM 8.8 mg/dL (8.5-10.1); CREATININE 1.1 mg/dL (0.7-1.3); GFR 64.1; POTASSIUM 4.1 mmol/L (3.5-5.1); TOTAL BILIRUBIN 0.5 mg/dL (0.2-1.0); TOTAL PROTEIN 6.3 g/dL (6.4-8.2)
--- NOTE | 2018-12-21 22:59 | PDOC ---
Exam Note: Liam Note: Please also refer to the separate dictated note~for this date of service dictated separately.~Patient seen individually. Discussed the patient with Nursing staff reviewed the chart.~Reviewed interim history and current functioning. Reviewed vital signs,~Labs/ Radiology~and current medications noted below. Continue current treatment with the changes noted in the dictated addendum note Assessment: Vital Signs/I&O: Vital Signs Date Time Temp Pulse Resp B/P (MAP) Pulse Ox O2 Delivery O2 Flow Rate FiO2 12/21/18 15:51 98.2 61 20 179/88 (118) 94 12/17/18 15:44 Room Air I & O 12/20/18 12/20/18 12/21/18 15:00 23:00 07:00 Intake Total 600 ml 240 ml 120 ml Balance 600 ml 240 ml 120 ml Labs: Laboratory Tests Test 12/21/18 07:11 12/21/18 19:22 12/21/18 21:50 Glucose (Fingerstick) 89 mg/dL (70-99) 104 mg/dL (70-99) H White Blood Count 8.0 x10^3/uL (4.0-11.0) Red Blood Count 3.62 x10^6/uL (4.30-5.70) L Hemoglobin 11.6 g/dL (13.0-17.5) L Hematocrit 34.9 % (39.0-53.0) L Mean Corpuscular Volume 97 fL (79-100) Mean Corpuscular Hemoglobin 32 pg (25-35) Mean Corpuscular Hemoglobin Concent 33 g/dL (31-37) Red Cell Distribution Width 14.6 % (11.5-14.5) H Platelet Count 215 x10^3/uL (140-400) Neutrophils (%) (Auto) 77 % (31-73) H Lymphocytes (%) (Auto) 13 % (24-48) L Monocytes (%) (Auto) 8 % (0-9) Eosinophils (%) (Auto) 2 % (0-3) Basophils (%) (Auto) 0 % (0-3) Neutrophils # (Auto) 6.2 x10^3uL (1.8-7.7) Lymphocytes # (Auto) 1.0 x10^3/uL (1.0-4.8) Monocytes # (Auto) 0.7 x10^3/uL (0.0-1.1) Eosinophils # (Auto) 0.1 x10^3/uL (0.0-0.7) Basophils # (Auto) 0.0 x10^3/uL (0.0-0.2) Sodium Level 140 mmol/L (136-145) Potassium Level 4.1 mmol/L (3.5-5.1) Chloride Level 105 mmol/L (98-107) Carbon Dioxide Level 27 mmol/L (21-32) Anion Gap 8 (6-14) Blood Urea Nitrogen 26 mg/dL (8-26) Creatinine 1.1 mg/dL (0.7-1.3) Estimated GFR (Cockcroft-Gault) 64.1 BUN/Creatinine Ratio 24 (6-20) H Glucose Level 133 mg/dL (70-99) H Calcium Level 8.8 mg/dL (8.5-10.1) Total Bilirubin 0.5 mg/dL (0.2-1.0) Aspartate Amino Transferase (AST) 20 U/L (15-37) Alanine Aminotransferase (ALT) 6 U/L (16-63) L Alkaline Phosphatase 83 U/L (46-116) Total Protein 6.3 g/dL (6.4-8.2) L Albumin 3.1 g/dL (3.4-5.0) L Albumin/Globulin Ratio 1.0 (1.0-1.7) Current Medications: I have reviewed the current psychotropics carefully including drug interactions. Risk benefit ratio favors no change other than as noted in my dictated progress note. Diagnosis: Problems: (1) Anxiety disorder (2) Dementia in Alzheimer's disease with delusions (3) Dementia in Alzheimer's disease with depression (4) Dementia, vascular, with delusions (5) Dementia, vascular, with depression (6) Impulse control disorder MAURICE GLASS MD Dec 21, 2018 22:59
--- NOTE | 2018-12-22 00:34 | PN ---
DATE: 12/20/2018 PSYCHIATRIC PROGRESS NOTE This late entry 12/20/2018 covers elements not covered in my initial note. SUBJECTIVE: I met with the patient in the evening. Per nursing report, the patient slept 6-1/4 hours previous night. He was cooperative with morning medications and asking what time it was. His visited at lunchtime and then he was making statements looking for his and when the staff told him she had left, he was telling them that they were lying to him about his . He then became combative, resistive to cares, refused medications, combative with vital signs. He is on Amoxil for UTI. REVIEW OF SYSTEMS: Ambulation impaired, in wheelchair. No CV, , pulmonary, eye, ENT system symptoms on review. MENTAL STATUS EXAM: Oriented to himself, situation at times and at other times he is very disoriented, probably consistent with his Lewy body dementia. Speech has low in rate and rhythm, low in volume consistent with Parkinson's. Abstraction fair, computation impaired, language function intact, attention span short. Mood and affect withdrawn. LABORATORY DATA: Reviewed. IMPRESSION: Major neurocognitive disorder, probably Lewy body with delusion, depression, behavioral disturbance, urinary tract infection; anxiety disorder, unspecified; impulse control disorder, unspecified. Rest unchanged. PLAN: Treat the UTI. The patient is currently on Amoxil. Continue rest of the psychotropics, Seroquel along with Ativan p.r.n. He remains on Sinemet for the Parkinson's, Depakote, trazodone, Remeron, and Celexa was changed to Zoloft. Adjust further as clinically indicated. May need to adjust Depakote to get therapeutic level. MAN Tonya GLASS MD DR: CHANDAN/nadeem JOB#: [id number] / [id number]
[2018-12-22] MEDS: traZODone 100 MG TABLET. PO PRN ×2 (00:36→22:21)
[2018-12-22] MEDS: CARBIDOPA/LEVODOPA 25/250MG TABLET PO SCH ×5 (05:12→20:10)
[2018-12-22 06:09] VITALS: BP 145/75
[2018-12-22] MEDS: QUEtiapine 25 MG TABLET. PO SCH ×3 (08:42→20:00)
[2018-12-22] MEDS: ACETAMINOPHEN 325 MG TABLET PO SCH ×2 (08:42→19:59)
[2018-12-22] MEDS: ASPIRIN ENTERIC COATED 81 MG TABLET.DR. PO SCH (08:42)
[2018-12-22] MEDS: MULTIVITAMIN with MINERAL TABLET. PO SCH (08:42)
[2018-12-22] MEDS: CLOPIDOGREL BISULFATE 75 MG TABLET PO SCH (08:42)
[2018-12-22] MEDS: AMOXICILLIN 250 MG CAPSULE PO SCH ×3 (08:42→19:59)
[2018-12-22] MEDS: ASCORBIC ACID 500 MG TABLET PO SCH (08:42)
[2018-12-22] MEDS: ALLOPURINOL 300 MG TABLET. PO SCH (08:42)
[2018-12-22] MEDS: SERTRALINE 50 MG TABLET. PO SCH (08:43)
[2018-12-22] MEDS: POLYETHYLENE GLYCOL 3350 17 GM PACKET. PO SCH (08:43)
[2018-12-22] MEDS: CARBIDOPA/LEVODOPA CR 50/200MG TABLET.SA PO SCH ×2 (08:43→20:00)
[2018-12-22] MEDS: TAMSULOSIN 0.4 MG CAP.ER.24H. PO SCH (08:43)
[2018-12-22] MEDS: LACTOBACILLUS RHAMNOSUS GG 1 CAPSULE. PO SCH ×2 (08:43→19:59)
[2018-12-22] MEDS: metFORMIN 500 MG TABLET PO SCH ×2 (08:43→16:46)
[2018-12-22] MEDS: PRAMIPEXOLE 0.25 MG TABLET. PO SCH ×3 (08:43→19:59)
[2018-12-22] MEDS: RASAGILINE MESYLATE 0.5 MG PO SCH (09:00)
[2018-12-22 15:52] VITALS: BP 106/68
[2018-12-22] MEDS: traZODone 100 MG TABLET. PO SCH (19:59)
[2018-12-22] MEDS: MIRTAZAPINE 15 MG TABLET PO SCH (19:59)
[2018-12-22] MEDS: DIVALPROEX 125 MG CAP.SPRINK PO SCH (19:59)
--- NOTE | 2018-12-22 21:35 | PDOC ---
Exam Note: Liam Note: Please also refer to the separate dictated note~for this date of service dictated separately.~Patient seen individually. Discussed the patient with Nursing staff reviewed the chart.~Reviewed interim history and current functioning. Reviewed vital signs,~Labs/ Radiology~and current medications noted below. Continue current treatment with the changes noted in the dictated addendum note Assessment: Vital Signs/I&O: Vital Signs Date Time Temp Pulse Resp B/P (MAP) Pulse Ox O2 Delivery O2 Flow Rate FiO2 12/22/18 15:52 97.3 80 18 106/68 (81) 98 12/17/18 15:44 Room Air I & O 12/21/18 12/21/18 12/22/18 15:00 23:00 07:00 Intake Total 720 ml 220 ml Balance 720 ml 220 ml Labs: Laboratory Tests Test 12/21/18 21:50 12/22/18 08:27 12/22/18 19:10 White Blood Count 8.0 x10^3/uL (4.0-11.0) Red Blood Count 3.62 x10^6/uL (4.30-5.70) L Hemoglobin 11.6 g/dL (13.0-17.5) L Hematocrit 34.9 % (39.0-53.0) L Mean Corpuscular Volume 97 fL (79-100) Mean Corpuscular Hemoglobin 32 pg (25-35) Mean Corpuscular Hemoglobin Concent 33 g/dL (31-37) Red Cell Distribution Width 14.6 % (11.5-14.5) H Platelet Count 215 x10^3/uL (140-400) Neutrophils (%) (Auto) 77 % (31-73) H Lymphocytes (%) (Auto) 13 % (24-48) L Monocytes (%) (Auto) 8 % (0-9) Eosinophils (%) (Auto) 2 % (0-3) Basophils (%) (Auto) 0 % (0-3) Neutrophils # (Auto) 6.2 x10^3uL (1.8-7.7) Lymphocytes # (Auto) 1.0 x10^3/uL (1.0-4.8) Monocytes # (Auto) 0.7 x10^3/uL (0.0-1.1) Eosinophils # (Auto) 0.1 x10^3/uL (0.0-0.7) Basophils # (Auto) 0.0 x10^3/uL (0.0-0.2) Sodium Level 140 mmol/L (136-145) Potassium Level 4.1 mmol/L (3.5-5.1) Chloride Level 105 mmol/L (98-107) Carbon Dioxide Level 27 mmol/L (21-32) Anion Gap 8 (6-14) Blood Urea Nitrogen 26 mg/dL (8-26) Creatinine 1.1 mg/dL (0.7-1.3) Estimated GFR (Cockcroft-Gault) 64.1 BUN/Creatinine Ratio 24 (6-20) H Glucose Level 133 mg/dL (70-99) H Calcium Level 8.8 mg/dL (8.5-10.1) Total Bilirubin 0.5 mg/dL (0.2-1.0) Aspartate Amino Transferase (AST) 20 U/L (15-37) Alanine Aminotransferase (ALT) 6 U/L (16-63) L Alkaline Phosphatase 83 U/L (46-116) Total Protein 6.3 g/dL (6.4-8.2) L Albumin 3.1 g/dL (3.4-5.0) L Albumin/Globulin Ratio 1.0 (1.0-1.7) Glucose (Fingerstick) 119 mg/dL (70-99) H 118 mg/dL (70-99) H Current Medications: I have reviewed the current psychotropics carefully including drug interactions. Risk benefit ratio favors no change other than as noted in my dictated progress note. Diagnosis: Problems: (1) Anxiety disorder (2) Dementia in Alzheimer's disease with delusions (3) Dementia in Alzheimer's disease with depression (4) Dementia, vascular, with delusions (5) Dementia, vascular, with depression (6) Impulse control disorder MAURICE GLASS MD Dec 22, 2018 21:35
[2018-12-23] MEDS: LORazepam 0.5 MG TABLET PO PRN (00:01)
[2018-12-23] MEDS: CARBIDOPA/LEVODOPA 25/250MG TABLET PO SCH ×5 (03:35→19:55)
[2018-12-23 06:03] VITALS: BP 165/85
[2018-12-23] MEDS: CLOPIDOGREL BISULFATE 75 MG TABLET PO SCH (08:03)
[2018-12-23] MEDS: PRAMIPEXOLE 0.25 MG TABLET. PO SCH ×3 (08:03→19:56)
[2018-12-23] MEDS: ACETAMINOPHEN 325 MG TABLET PO SCH ×2 (08:03→19:55)
[2018-12-23] MEDS: LACTOBACILLUS RHAMNOSUS GG 1 CAPSULE. PO SCH ×2 (08:04→19:56)
[2018-12-23] MEDS: QUEtiapine 25 MG TABLET. PO SCH ×3 (08:04→19:55)
[2018-12-23] MEDS: ASCORBIC ACID 500 MG TABLET PO SCH (08:04)
[2018-12-23] MEDS: SERTRALINE 50 MG TABLET. PO SCH (08:04)
[2018-12-23] MEDS: AMOXICILLIN 250 MG CAPSULE PO SCH ×3 (08:04→19:55)
[2018-12-23] MEDS: CARBIDOPA/LEVODOPA CR 50/200MG TABLET.SA PO SCH ×2 (08:04→19:56)
[2018-12-23] MEDS: TAMSULOSIN 0.4 MG CAP.ER.24H. PO SCH (08:04)
[2018-12-23] MEDS: ALLOPURINOL 300 MG TABLET. PO SCH (08:04)
[2018-12-23] MEDS: metFORMIN 500 MG TABLET PO SCH ×2 (08:04→16:58)
[2018-12-23] MEDS: ASPIRIN ENTERIC COATED 81 MG TABLET.DR. PO SCH (08:05)
[2018-12-23] MEDS: MULTIVITAMIN with MINERAL TABLET. PO SCH (08:05)
[2018-12-23] MEDS: RASAGILINE MESYLATE 0.5 MG PO SCH (08:06)
[2018-12-23] MEDS: POLYETHYLENE GLYCOL 3350 17 GM PACKET. PO SCH (08:06)
[2018-12-23 15:56] VITALS: BP 99/72
[2018-12-23] MEDS: MIRTAZAPINE 15 MG TABLET PO SCH (19:56)
[2018-12-23] MEDS: DIVALPROEX 125 MG CAP.SPRINK PO SCH (19:56)
[2018-12-23] MEDS: traZODone 100 MG TABLET. PO SCH (19:56)
--- NOTE | 2018-12-23 21:38 | PDOC ---
Exam Note: Liam Note: Please also refer to the separate dictated note~for this date of service dictated separately.~Patient seen individually. Discussed the patient with Nursing staff reviewed the chart.~Reviewed interim history and current functioning. Reviewed vital signs,~Labs/ Radiology~and current medications noted below. Continue current treatment with the changes noted in the dictated addendum note Assessment: Vital Signs/I&O: Vital Signs Date Time Temp Pulse Resp B/P (MAP) Pulse Ox O2 Delivery O2 Flow Rate FiO2 12/23/18 15:56 97.4 78 20 99/72 (81) 97 12/17/18 15:44 Room Air I & O 12/22/18 12/22/18 12/23/18 15:00 23:00 07:00 Intake Total 480 ml 240 ml 240 ml Balance 480 ml 240 ml 240 ml Labs: Laboratory Tests Test 12/23/18 07:42 Glucose (Fingerstick) 95 mg/dL (70-99) Current Medications: I have reviewed the current psychotropics carefully including drug interactions. Risk benefit ratio favors no change other than as noted in my dictated progress note. Diagnosis: Problems: (1) Anxiety disorder (2) Dementia in Alzheimer's disease with delusions (3) Dementia in Alzheimer's disease with depression (4) Dementia, vascular, with delusions (5) Dementia, vascular, with depression (6) Impulse control disorder (7) Lewy body dementia with behavioral disturbance MAURICE GLASS MD Dec 23, 2018 21:37
[2018-12-23] MEDS: traZODone 100 MG TABLET. PO PRN (22:42)
[2018-12-24] MEDS: LORazepam 0.5 MG TABLET PO PRN (00:42)
--- NOTE | 2018-12-24 01:47 | PN ---
DATE: 12/22/2018 PSYCHIATRIC PROGRESS NOTE This late entry, 12/22, covers elements not covered in my initial note. SUBJECTIVE: I met with the patient evening of 12/22. The patient slept 8-1/2 hours previous night. Per nursing report, he is showing some improvement. The roommate kept him up at night and he was somewhat restless. REVIEW OF SYSTEMS: Ambulation impaired, in wheelchair, Broda chair. No CV, , pulmonary, eye system symptoms on review. MENTAL STATUS EXAM: Oriented to himself, situation at times, other times seems more confused. Abstraction fair, computation impaired, language function intact, attention span short. Mood and affect somewhat withdrawn. LABORATORY DATA: Reviewed. IMPRESSION: Major neurocognitive disorder, possibly Lewy body with delusion, depression; behavioral disturbance; anxiety disorder, unspecified; impulse control disorder, unspecified. PLAN: No change from a psychiatric standpoint, but we may consider adding Exelon and Namenda given the diagnosis of Lewy body dementia. MAN Tonya GLASS MD DR: CHANDAN/nadeem JOB#: [id number] / [id number]
--- NOTE | 2018-12-24 04:01 | PN ---
DATE: 12/21/2018 PSYCHIATRIC PROGRESS NOTE This late entry, 12/21/2018, covers elements not covered in my initial note. SUBJECTIVE: I met with the patient evening of 12/21/2018. The patient slept 4-1/2 hours previous night. He refused his medications, was irritable, told his to leave at lunch, then napped after lunch and was drowsy. He had increased drooling. Dr. Cerda saw him from a neurological standpoint with no new orders. REVIEW OF SYSTEMS: Ambulation impaired, in wheelchair. No CV, , pulmonary, eye, ENT system symptoms on review. Reliability poor. MENTAL STATUS EXAM: Oriented to himself and situation. Speech is difficult to understand, low in volume. Abstraction fair, computation impaired, language function intact, attention span short. Mood and affect remains somewhat anxious, labile. LABORATORY DATA: Reviewed. IMPRESSION: Major neurocognitive disorder, probably Lewy body with delusion, depression, behavioral disturbance; anxiety disorder, unspecified; impulse control disorder, unspecified. Rest unchanged. PLAN: No change from initial note for now. Given his diagnosis of Lewy body dementia, we may consider adding rivastigmine and Namenda. MAN Tonya GLASS MD DR: CHANDAN/nadeem JOB#: [id number] / [id number]
[2018-12-24] MEDS: CARBIDOPA/LEVODOPA 25/250MG TABLET PO SCH ×5 (04:49→21:00)
[2018-12-24 06:31] VITALS: BP 170/90
[2018-12-24] MEDS: TAMSULOSIN 0.4 MG CAP.ER.24H. PO SCH (09:09)
[2018-12-24] MEDS: ACETAMINOPHEN 325 MG TABLET PO SCH ×2 (09:09→21:00)
[2018-12-24] MEDS: LACTOBACILLUS RHAMNOSUS GG 1 CAPSULE. PO SCH ×2 (09:10→20:58)
[2018-12-24] MEDS: ASCORBIC ACID 500 MG TABLET PO SCH (09:10)
[2018-12-24] MEDS: PRAMIPEXOLE 0.25 MG TABLET. PO SCH ×3 (09:10→20:59)
[2018-12-24] MEDS: metFORMIN 500 MG TABLET PO SCH ×2 (09:10→17:29)
[2018-12-24] MEDS: MULTIVITAMIN with MINERAL TABLET. PO SCH (09:10)
[2018-12-24] MEDS: ALLOPURINOL 300 MG TABLET. PO SCH (09:11)
[2018-12-24] MEDS: POLYETHYLENE GLYCOL 3350 17 GM PACKET. PO SCH (09:11)
[2018-12-24] MEDS: CLOPIDOGREL BISULFATE 75 MG TABLET PO SCH (09:11)
[2018-12-24] MEDS: AMOXICILLIN 250 MG CAPSULE PO SCH ×3 (09:11→20:58)
[2018-12-24] MEDS: QUEtiapine 25 MG TABLET. PO SCH ×3 (09:11→20:59)
[2018-12-24] MEDS: ASPIRIN ENTERIC COATED 81 MG TABLET.DR. PO SCH (09:11)
[2018-12-24] MEDS: CARBIDOPA/LEVODOPA CR 50/200MG TABLET.SA PO SCH ×2 (09:11→21:00)
[2018-12-24] MEDS: RIVASTIGMINE 4.6MG PATCH. TD SCH (09:17)
[2018-12-24] MEDS: SERTRALINE 50 MG TABLET. PO SCH (09:17)
[2018-12-24] MEDS: DIVALPROEX 125 MG CAP.SPRINK PO SCH ×3 (09:17→20:59)
[2018-12-24] MEDS: MEMANTINE 5 MG TABLET. PO SCH (09:17)
[2018-12-24] MEDS: RASAGILINE MESYLATE 0.5 MG PO SCH (09:18)
[2018-12-24 16:52] VITALS: BP 95/64
--- NOTE | 2018-12-24 19:23 | PN ---
DATE: 12/23/2018 PSYCHIATRIC PROGRESS NOTE This late entry December 26 covers elements not covered in my initial note. SUBJECTIVE: I met with the patient in the evening. Per nursing staff, the patient has had a difficult day. He has been restless, refused medications, which have been given hidden. He is trying to get out, anxious, restless, labile in his mood. REVIEW OF SYSTEMS: Ambulation impaired, in wheelchair. No CV, , pulmonary, eye, ENT system symptoms on review. Reliability varies. MENTAL STATUS EXAM: Oriented to himself and situation. Speech moderate latency, coherent. Abstraction fair. Computation impaired. Language function intact. Mood and affect labile. He does have intermittent psychotic symptoms consistent with Lewy body dementia. LABORATORY DATA: Reviewed. IMPRESSION: Major neurocognitive disorder, probably Lewy body with delusion, depression, behavioral disturbance; anxiety disorder, unspecified; impulse control disorder, unspecified. PLAN: Increase Zoloft from 50 mg a day to 75 mg a day. Valproic acid level is subtherapeutic at 24. Increase Depakote from current dosage to 50 mg at bedtime. Check CBC, CMP, valproic acid level in 3 days. Rest unchanged for now. MAN Tonya GLASS MD DR: CHANDAN/nadeem JOB#: [id number] / [id number]
[2018-12-24] MEDS: traZODone 100 MG TABLET. PO SCH (20:59)
[2018-12-24] MEDS: MIRTAZAPINE 15 MG TABLET PO SCH (20:59)
[2018-12-24] MEDS: MELATONIN 3 MG TABLET PO SCH (21:01)
--- NOTE | 2018-12-24 21:59 | PDOC ---
Exam Note: Liam Note: Please also refer to the separate dictated note~for this date of service dictated separately.~Patient seen individually. Discussed the patient with Nursing staff reviewed the chart.~Reviewed interim history and current functioning. Reviewed vital signs,~Labs/ Radiology~and current medications noted below. Continue current treatment with the changes noted in the dictated addendum note Assessment: Vital Signs/I&O: Vital Signs Date Time Temp Pulse Resp B/P (MAP) Pulse Ox O2 Delivery O2 Flow Rate FiO2 12/24/18 16:52 96.9 63 16 95/64 (74) 99 I & O 12/23/18 12/23/18 12/24/18 14:59 22:59 06:59 Intake Total 360 ml 360 ml 240 ml Balance 360 ml 360 ml 240 ml Current Medications: Meds: Current Medications Medications (Trade) Dose Ordered Sig/Harinder Route PRN Reason Start Time Stop Time Status Last Admin Dose Admin Sertraline HCl (Zoloft) 75 mg DAILY PO 12/24/18 09:00 12/24/18 09:18 Divalproex Sodium (Depakote Sprinkles) 125 mg 0900,1300 PO 12/24/18 09:00 12/24/18 14:17 Memantine (Namenda) 5 mg DAILY PO 12/24/18 09:00 12/26/18 21:00 12/24/18 09:18 Rivastigmine (Exelon) 1 patch DAILY TD 12/24/18 09:00 12/24/18 09:18 Melatonin 3 mg QHS PO 12/24/18 21:00 12/24/18 21:01 I have reviewed the current psychotropics carefully including drug interactions. Risk benefit ratio favors no change other than as noted in my dictated progress note. Diagnosis: Problems: (1) Anxiety disorder (2) Dementia in Alzheimer's disease with delusions (3) Dementia in Alzheimer's disease with depression (4) Dementia, vascular, with delusions (5) Dementia, vascular, with depression (6) Impulse control disorder (7) Lewy body dementia with behavioral disturbance MAURICE GLASS MD Dec 24, 2018 21:59
[2018-12-25] MEDS: traZODone 100 MG TABLET. PO PRN (01:56)
[2018-12-25] MEDS: CARBIDOPA/LEVODOPA 25/250MG TABLET PO SCH ×5 (06:13→21:15)
[2018-12-25 06:35] VITALS: BP 156/83
[2018-12-25] MEDS: POLYETHYLENE GLYCOL 3350 17 GM PACKET. PO SCH (07:45)
[2018-12-25] MEDS: MEMANTINE 5 MG TABLET. PO SCH (07:45)
[2018-12-25] MEDS: QUEtiapine 25 MG TABLET. PO SCH ×3 (07:45→21:14)
[2018-12-25] MEDS: ASCORBIC ACID 500 MG TABLET PO SCH (07:45)
[2018-12-25] MEDS: AMOXICILLIN 250 MG CAPSULE PO SCH ×3 (07:46→21:13)
[2018-12-25] MEDS: ASPIRIN ENTERIC COATED 81 MG TABLET.DR. PO SCH (07:47)
[2018-12-25] MEDS: SERTRALINE 50 MG TABLET. PO SCH (07:47)
[2018-12-25] MEDS: CARBIDOPA/LEVODOPA CR 50/200MG TABLET.SA PO SCH ×2 (07:47→21:14)
[2018-12-25] MEDS: ALLOPURINOL 300 MG TABLET. PO SCH (07:47)
[2018-12-25] MEDS: ACETAMINOPHEN 325 MG TABLET PO SCH ×2 (07:48→21:14)
[2018-12-25] MEDS: DIVALPROEX 125 MG CAP.SPRINK PO SCH ×3 (07:48→21:13)
[2018-12-25] MEDS: PRAMIPEXOLE 0.25 MG TABLET. PO SCH ×3 (07:49→21:13)
[2018-12-25] MEDS: LACTOBACILLUS RHAMNOSUS GG 1 CAPSULE. PO SCH ×2 (07:50→21:14)
[2018-12-25] MEDS: RIVASTIGMINE 4.6MG PATCH. TD SCH (07:50)
[2018-12-25] MEDS: CLOPIDOGREL BISULFATE 75 MG TABLET PO SCH (07:50)
[2018-12-25] MEDS: MULTIVITAMIN with MINERAL TABLET. PO SCH (07:50)
[2018-12-25] MEDS: metFORMIN 500 MG TABLET PO SCH ×2 (07:50→17:22)
[2018-12-25] MEDS: TAMSULOSIN 0.4 MG CAP.ER.24H. PO SCH (07:50)
[2018-12-25] MEDS: RASAGILINE MESYLATE 0.5 MG PO SCH (07:51)
[2018-12-25 17:02] VITALS: BP 127/70
[2018-12-25] MEDS: MELATONIN 3 MG TABLET PO SCH (21:13)
[2018-12-25] MEDS: traZODone 100 MG TABLET. PO SCH (21:13)
[2018-12-25] MEDS: MIRTAZAPINE 15 MG TABLET PO SCH (21:14)
--- NOTE | 2018-12-25 21:57 | PDOC ---
Exam Note: Liam Note: Please also refer to the separate dictated note~for this date of service dictated separately.~Patient seen individually. Discussed the patient with Nursing staff reviewed the chart.~Reviewed interim history and current functioning. Reviewed vital signs,~Labs/ Radiology~and current medications noted below. Continue current treatment with the changes noted in the dictated addendum note Assessment: Vital Signs/I&O: Vital Signs Date Time Temp Pulse Resp B/P (MAP) Pulse Ox O2 Delivery O2 Flow Rate FiO2 12/25/18 17:28 98 12/25/18 17:02 97.1 55 16 127/70 (89) I & O 12/24/18 12/24/18 12/25/18 15:00 23:00 07:00 Intake Total 240 ml 480 ml Balance 240 ml 480 ml Current Medications: I have reviewed the current psychotropics carefully including drug interactions. Risk benefit ratio favors no change other than as noted in my dictated progress note. Diagnosis: Problems: (1) Anxiety disorder (2) Dementia in Alzheimer's disease with delusions (3) Dementia in Alzheimer's disease with depression (4) Dementia, vascular, with delusions (5) Dementia, vascular, with depression (6) Impulse control disorder (7) Lewy body dementia with behavioral disturbance MAURICE GLASS MD Dec 25, 2018 21:57
--- NOTE | 2018-12-26 00:27 | PN ---
DATE: 12/24/2018 PSYCHIATRIC PROGRESS NOTE This late entry 12/24/2018 covers elements not covered in my initial note. SUBJECTIVE: I met with the patient in the evening of 12/24/2018. The patient slept 3 hours previous night. He has been somewhat restless, up and down whole night. He is compliant with his medications. REVIEW OF SYSTEMS: Ambulation impaired, in wheelchair. No CV, , pulmonary, eye, ENT system symptoms on review. MENTAL STATUS EXAM: Oriented to himself, situation at times, more than this. Abstraction fair, computation impaired, language function intact, attention span short. Mood and affect somewhat anxious, labile at times, but showing improvement. LABORATORY DATA: Reviewed. IMPRESSION: Unchanged from initial note. PLAN: Start melatonin 3 mg at bedtime for insomnia. Rest unchanged. MAN Tonya GLASS MD DR: CHANDAN/nadeem JOB#: [id number] / [id number]
[2018-12-26] MEDS: CARBIDOPA/LEVODOPA 25/250MG TABLET PO SCH ×6 (05:32→21:29)
[2018-12-26 06:27] VITALS: BP 184/92
[2018-12-26] MEDS: PRAMIPEXOLE 0.25 MG TABLET. PO SCH ×3 (07:57→21:28)
[2018-12-26] MEDS: ACETAMINOPHEN 325 MG TABLET PO SCH ×2 (07:57→21:30)
[2018-12-26] MEDS: RIVASTIGMINE 4.6MG PATCH. TD SCH (07:57)
[2018-12-26] MEDS: CARBIDOPA/LEVODOPA CR 50/200MG TABLET.SA PO SCH ×2 (07:58→21:29)
[2018-12-26] MEDS: SERTRALINE 50 MG TABLET. PO SCH (07:58)
[2018-12-26] MEDS: AMOXICILLIN 250 MG CAPSULE PO SCH ×3 (07:58→21:32)
[2018-12-26] MEDS: metFORMIN 500 MG TABLET PO SCH ×2 (07:58→17:30)
[2018-12-26] MEDS: ASPIRIN ENTERIC COATED 81 MG TABLET.DR. PO SCH (07:58)
[2018-12-26] MEDS: CLOPIDOGREL BISULFATE 75 MG TABLET PO SCH (07:58)
[2018-12-26] MEDS: TAMSULOSIN 0.4 MG CAP.ER.24H. PO SCH (07:58)
[2018-12-26] MEDS: ASCORBIC ACID 500 MG TABLET PO SCH (07:58)
[2018-12-26] MEDS: ALLOPURINOL 300 MG TABLET. PO SCH (07:59)
[2018-12-26] MEDS: MEMANTINE 5 MG TABLET. PO SCH (07:59)
[2018-12-26] MEDS: QUEtiapine 25 MG TABLET. PO SCH ×2 (07:59→14:08)
[2018-12-26] MEDS: LACTOBACILLUS RHAMNOSUS GG 1 CAPSULE. PO SCH ×2 (07:59→21:29)
[2018-12-26] MEDS: MULTIVITAMIN with MINERAL TABLET. PO SCH (07:59)
[2018-12-26] MEDS: DIVALPROEX 125 MG CAP.SPRINK PO SCH ×2 (07:59→14:08)
[2018-12-26] MEDS: POLYETHYLENE GLYCOL 3350 17 GM PACKET. PO SCH (08:02)
[2018-12-26] MEDS: RASAGILINE MESYLATE 0.5 MG PO SCH (08:03)
[2018-12-26 15:56] VITALS: BP 150/79
[2018-12-26] MEDS: traZODone 100 MG TABLET. PO SCH (21:29)
[2018-12-26] MEDS: MIRTAZAPINE 15 MG TABLET PO SCH (21:29)
[2018-12-26] MEDS: MELATONIN 3 MG TABLET PO SCH (21:30)
[2018-12-26] MEDS: MEMANTINE 10 MG TABLET. PO SCH (21:32)
--- NOTE | 2018-12-26 22:00 | PDOC ---
Exam Note: Liam Note: Please also refer to the separate dictated note~for this date of service dictated separately.~Patient seen individually. Discussed the patient with Nursing staff reviewed the chart.~Reviewed interim history and current functioning. Reviewed vital signs,~Labs/ Radiology~and current medications noted below. Continue current treatment with the changes noted in the dictated addendum note Assessment: Vital Signs/I&O: Vital Signs Date Time Temp Pulse Resp B/P (MAP) Pulse Ox O2 Delivery O2 Flow Rate FiO2 12/26/18 15:56 98.0 62 18 150/79 (102) 100 I & O 12/25/18 12/25/18 12/26/18 15:00 23:00 07:00 Intake Total 840 ml 240 ml 240 ml Balance 840 ml 240 ml 240 ml Current Medications: Meds: Current Medications Medications (Trade) Dose Ordered Sig/Harinder Route PRN Reason Start Time Stop Time Status Last Admin Dose Admin Memantine (Namenda) 10 mg BID PO 12/26/18 21:00 12/26/18 21:32 I have reviewed the current psychotropics carefully including drug interactions. Risk benefit ratio favors no change other than as noted in my dictated progress note. Diagnosis: Problems: (1) Anxiety disorder (2) Dementia in Alzheimer's disease with delusions (3) Dementia in Alzheimer's disease with depression (4) Dementia, vascular, with delusions (5) Dementia, vascular, with depression (6) Impulse control disorder (7) Lewy body dementia with behavioral disturbance MAURICE GLASS MD Dec 26, 2018 22:00
[2018-12-27 05:22] VITALS: BP 108/65
[2018-12-27] MEDS: CARBIDOPA/LEVODOPA 25/250MG TABLET PO SCH ×5 (06:28→21:17)
[2018-12-27 07:13] LABS: BASO % 0 % (0-3); EOS # 0.2 x10^3/uL (0.0-0.7); EOS % 4 % (0-3); HEMATOCRIT 34.5 % (39.0-53.0); HEMOGLOBIN 11.5 g/dL (13.0-17.5); LYMPH # 1.2 x10^3/uL (1.0-4.8); LYMPH % 21 % (24-48); MEAN CORPUSCULAR HEMOGLOBIN 32 pg (25-35); MEAN CORPUSCULAR HGB CONC 33 g/dL (31-37); MEAN CORPUSCULAR VOLUME 97 fL (79-100); MONO # 0.6 x10^3/uL (0.0-1.1); MONO % 11 % (0-9); NEUT # 3.5 x10^3uL (1.8-7.7); NEUT % 64 % (31-73); PLATELET COUNT 207 x10^3/uL (140-400); RED BLOOD COUNT 3.55 x10^6/uL (4.30-5.70); RED CELL DISTRIBUTION WIDTH 14.7 % (11.5-14.5); WHITE BLOOD COUNT 5.5 x10^3/uL (4.0-11.0)
[2018-12-27 07:32] LABS: ALBUMIN 3.3 g/dL (3.4-5.0); ALK PHOS 88 U/L (46-116); ALT (SGPT) 6 U/L (16-63); ANION GAP 9 (6-14); AST (SGOT) 21 U/L (15-37); BLOOD UREA NITROGEN 40 mg/dL (8-26); BUN/CREATININE RATIO 31 (6-20); CALCIUM 9.1 mg/dL (8.5-10.1); CARBON DIOXIDE 28 mmol/L (21-32); CHLORIDE 107 mmol/L (98-107); CREATININE 1.3 mg/dL (0.7-1.3); GFR 52.9; GLUCOSE 94 mg/dL (70-99); POTASSIUM 4.1 mmol/L (3.5-5.1); SODIUM 144 mmol/L (136-145); TOTAL BILIRUBIN 0.4 mg/dL (0.2-1.0); TOTAL PROTEIN 6.7 g/dL (6.4-8.2)
[2018-12-27 07:38] LABS: VAL ACID 20 mcg/mL (50-100)
[2018-12-27] MEDS: LACTOBACILLUS RHAMNOSUS GG 1 CAPSULE. PO SCH ×2 (07:51→21:14)
[2018-12-27] MEDS: AMOXICILLIN 250 MG CAPSULE PO SCH ×3 (07:51→21:14)
[2018-12-27] MEDS: POLYETHYLENE GLYCOL 3350 17 GM PACKET. PO SCH (07:51)
[2018-12-27] MEDS: ASPIRIN ENTERIC COATED 81 MG TABLET.DR. PO SCH (07:51)
[2018-12-27] MEDS: CARBIDOPA/LEVODOPA CR 50/200MG TABLET.SA PO SCH ×2 (07:51→21:17)
[2018-12-27] MEDS: MULTIVITAMIN with MINERAL TABLET. PO SCH (07:52)
[2018-12-27] MEDS: MEMANTINE 10 MG TABLET. PO SCH ×2 (07:52→21:15)
[2018-12-27] MEDS: SERTRALINE 50 MG TABLET. PO SCH (07:52)
[2018-12-27] MEDS: ACETAMINOPHEN 325 MG TABLET PO SCH ×2 (07:52→21:14)
[2018-12-27] MEDS: TAMSULOSIN 0.4 MG CAP.ER.24H. PO SCH (07:52)
[2018-12-27] MEDS: CLOPIDOGREL BISULFATE 75 MG TABLET PO SCH (07:52)
[2018-12-27] MEDS: ASCORBIC ACID 500 MG TABLET PO SCH (07:52)
[2018-12-27] MEDS: ALLOPURINOL 300 MG TABLET. PO SCH (07:52)
[2018-12-27] MEDS: PRAMIPEXOLE 0.25 MG TABLET. PO SCH ×3 (07:52→21:14)
[2018-12-27] MEDS: metFORMIN 500 MG TABLET PO SCH ×2 (07:52→17:00)
[2018-12-27] MEDS: RASAGILINE MESYLATE 0.5 MG PO SCH (07:55)
[2018-12-27] MEDS: RIVASTIGMINE 9.5MG PATCH. TD SCH (07:55)
[2018-12-27] MEDS ORDERED: MEMANTINE 5 MG TABLET. PO SCH (09:00)
[2018-12-27 16:34] VITALS: BP 135/70
--- NOTE | 2018-12-27 19:13 | PN ---
DATE: 12/25/2018 PSYCHIATRIC PROGRESS NOTE This late entry December 25 covers elements not covered in my initial note. SUBJECTIVE: I met with the patient in evening of December 25. The patient slept 2-1/2 hours previous night per FANNY Julien. During the day, he has been confused, calm, cooperative with his medications, cooperative with physical therapy staff, received 2 trazodone previous night. REVIEW OF SYSTEMS: Ambulation impaired, in Broda chair. No CV, , pulmonary, eye, ENT system symptoms on review. His orientation varies dramatically within a day, consistent with his Lewy body dementia diagnosis. MENTAL STATUS EXAM: Oriented to himself. Insight, judgment, recent and remote memory, attention, concentration, fund of knowledge poor, consistent with his diagnosis mentioned in my initial note. PLAN: No change from initial note. MAN Tonya GLASS MD DR: CHANDAN/nadeem JOB#: [id number] / [id number]
[2018-12-27] MEDS: MELATONIN 3 MG TABLET PO SCH (21:15)
[2018-12-27] MEDS: MIRTAZAPINE 15 MG TABLET PO SCH (21:15)
[2018-12-27] MEDS: traZODone 100 MG TABLET. PO SCH (21:15)
--- NOTE | 2018-12-27 21:51 | PDOC ---
Exam Note: Liam Note: Please also refer to the separate dictated note~for this date of service dictated separately.~Patient seen individually. Discussed the patient with Nursing staff reviewed the chart.~Reviewed interim history and current functioning. Reviewed vital signs,~Labs/ Radiology~and current medications noted below. Continue current treatment with the changes noted in the dictated addendum note Assessment: Vital Signs/I&O: Vital Signs Date Time Temp Pulse Resp B/P (MAP) Pulse Ox O2 Delivery O2 Flow Rate FiO2 12/27/18 16:34 97.9 67 16 135/70 (91) 100 I & O 12/26/18 12/26/18 12/27/18 15:00 23:00 07:00 Intake Total 960 ml 720 ml 240 ml Balance 960 ml 720 ml 240 ml Labs: Laboratory Tests Test 12/27/18 00:31 12/27/18 01:59 12/27/18 04:38 12/27/18 06:09 Glucose (Fingerstick) 48 mg/dL (70-99) L 96 mg/dL (70-99) 72 mg/dL (70-99) 45 mg/dL (70-99) L Test 12/27/18 06:57 White Blood Count 5.5 x10^3/uL (4.0-11.0) Red Blood Count 3.55 x10^6/uL (4.30-5.70) L Hemoglobin 11.5 g/dL (13.0-17.5) L Hematocrit 34.5 % (39.0-53.0) L Mean Corpuscular Volume 97 fL (79-100) Mean Corpuscular Hemoglobin 32 pg (25-35) Mean Corpuscular Hemoglobin Concent 33 g/dL (31-37) Red Cell Distribution Width 14.7 % (11.5-14.5) H Platelet Count 207 x10^3/uL (140-400) Neutrophils (%) (Auto) 64 % (31-73) Lymphocytes (%) (Auto) 21 % (24-48) L Monocytes (%) (Auto) 11 % (0-9) H Eosinophils (%) (Auto) 4 % (0-3) H Basophils (%) (Auto) 0 % (0-3) Neutrophils # (Auto) 3.5 x10^3uL (1.8-7.7) Lymphocytes # (Auto) 1.2 x10^3/uL (1.0-4.8) Monocytes # (Auto) 0.6 x10^3/uL (0.0-1.1) Eosinophils # (Auto) 0.2 x10^3/uL (0.0-0.7) Basophils # (Auto) 0.0 x10^3/uL (0.0-0.2) Sodium Level 144 mmol/L (136-145) Potassium Level 4.1 mmol/L (3.5-5.1) Chloride Level 107 mmol/L (98-107) Carbon Dioxide Level 28 mmol/L (21-32) Anion Gap 9 (6-14) Blood Urea Nitrogen 40 mg/dL (8-26) H Creatinine 1.3 mg/dL (0.7-1.3) Estimated GFR (Cockcroft-Gault) 52.9 BUN/Creatinine Ratio 31 (6-20) H Glucose Level 94 mg/dL (70-99) Calcium Level 9.1 mg/dL (8.5-10.1) Total Bilirubin 0.4 mg/dL (0.2-1.0) Aspartate Amino Transferase (AST) 21 U/L (15-37) Alanine Aminotransferase (ALT) 6 U/L (16-63) L Alkaline Phosphatase 88 U/L (46-116) Total Protein 6.7 g/dL (6.4-8.2) Albumin 3.3 g/dL (3.4-5.0) L Albumin/Globulin Ratio 1.0 (1.0-1.7) Valproic Acid Level 20 mcg/mL (50-100) L Valproic Acid Last Dose Date 12/26/18 Valproic Acid Last Dose Time 2100 Current Medications: Meds: Current Medications Medications (Trade) Dose Ordered Sig/Harinder Route PRN Reason Start Time Stop Time Status Last Admin Dose Admin Rivastigmine (Exelon) 1 patch DAILY TD 12/27/18 09:00 12/27/18 07:55 I have reviewed the current psychotropics carefully including drug interactions. Risk benefit ratio favors no change other than as noted in my dictated progress note. Diagnosis: Problems: (1) Anxiety disorder (2) Dementia in Alzheimer's disease with delusions (3) Dementia in Alzheimer's disease with depression (4) Dementia, vascular, with delusions (5) Dementia, vascular, with depression (6) Impulse control disorder (7) Lewy body dementia with behavioral disturbance MAURICE GLASS MD Dec 27, 2018 21:51
--- NOTE | 2018-12-28 03:57 | PN ---
DATE: 12/26/2018 PSYCHIATRIC PROGRESS NOTE This late entry of 12/26 covers elements not covered in my initial note. SUBJECTIVE: I met with the patient on the evening of 12/26 and staffed at treatment team meeting with the entire team in the morning. Reviewed the patient's history, diagnosis. The patient slept 6-1/2 hours the previous night. He has been drooling, somewhat sedated, unable to feed himself. This is a big physical decline from a few weeks back when he was going out with friends to eat and doing other things. He has been resistive in showers, and med compliance is poor. REVIEW OF SYSTEMS: Ambulation impaired, in wheelchair. No CV, , pulmonary, eye, ENT system symptoms on review. Reliability poor. MENTAL STATUS EXAMINATION: Oriented to himself at times and quite oriented at other times, consistent with the Lewy body dementia diagnosis. Speech is difficult to understand. Abstraction fair, computation impaired, language function intact, attention span short. Mood and affect somewhat withdrawn, quite sedated at times. LABORATORY DATA: Reviewed. IMPRESSION: Major neurocognitive disorder, probable Lewy body with delusion, depression, behavioral disturbance; anxiety disorder, unspecified; impulse control disorder, unspecified. PLAN: Given the significant sedation, we will stop the Seroquel and Depakote; increase the Namenda to 10 mg b.i.d. after he has been on 5 mg b.i.d. for 3 days, increase Exelon patch to 9.5 mg a day; add Zyprexa 2.5 mg q. 2 hours p.r.n. psychosis, agitation, max 10 mg in 24 hours. We will see how he does with the discontinuation of Depakote and Seroquel to reduce the sedation, and then make further decisions on his psychotropics. MAURICE GLASS MD DR: CHANDAN/nadeem JOB#: [id number] / [id number]
[2018-12-28 05:30] VITALS: BP 121/77
[2018-12-28] MEDS: CARBIDOPA/LEVODOPA 25/250MG TABLET PO SCH ×5 (05:54→21:28)
[2018-12-28] MEDS: PRAMIPEXOLE 0.25 MG TABLET. PO SCH ×3 (08:23→21:26)
[2018-12-28] MEDS: metFORMIN 500 MG TABLET PO SCH ×2 (08:24→16:45)
[2018-12-28] MEDS: LACTOBACILLUS RHAMNOSUS GG 1 CAPSULE. PO SCH ×2 (08:24→21:25)
[2018-12-28] MEDS: TAMSULOSIN 0.4 MG CAP.ER.24H. PO SCH (08:24)
[2018-12-28] MEDS: RIVASTIGMINE 9.5MG PATCH. TD SCH (08:24)
[2018-12-28] MEDS: SERTRALINE 50 MG TABLET. PO SCH (08:24)
[2018-12-28] MEDS: ASCORBIC ACID 500 MG TABLET PO SCH (08:24)
[2018-12-28] MEDS: POLYETHYLENE GLYCOL 3350 17 GM PACKET. PO SCH (08:24)
[2018-12-28] MEDS: ALLOPURINOL 300 MG TABLET. PO SCH (08:25)
[2018-12-28] MEDS: MULTIVITAMIN with MINERAL TABLET. PO SCH (08:25)
[2018-12-28] MEDS: AMOXICILLIN 250 MG CAPSULE PO SCH (08:25)
[2018-12-28] MEDS: CARBIDOPA/LEVODOPA CR 50/200MG TABLET.SA PO SCH ×2 (08:26→21:26)
[2018-12-28] MEDS: MEMANTINE 10 MG TABLET. PO SCH ×2 (08:26→21:26)
[2018-12-28] MEDS: CLOPIDOGREL BISULFATE 75 MG TABLET PO SCH (08:26)
[2018-12-28] MEDS: ACETAMINOPHEN 325 MG TABLET PO SCH ×2 (08:26→21:26)
[2018-12-28] MEDS: ASPIRIN ENTERIC COATED 81 MG TABLET.DR. PO SCH (08:26)
[2018-12-28] MEDS: RASAGILINE MESYLATE 0.5 MG PO SCH (08:28)
[2018-12-28] MEDS ORDERED: FLU VAX QS 2019-20 (36MOS+)/PF 0.5 ML SYRINGE. VAX IM ONE (09:00)
[2018-12-28 15:52] VITALS: BP 146/72
[2018-12-28] MEDS: traZODone 100 MG TABLET. PO SCH (21:25)
[2018-12-28] MEDS: MELATONIN 3 MG TABLET PO SCH (21:25)
[2018-12-28] MEDS: MIRTAZAPINE 15 MG TABLET PO SCH (21:26)
--- NOTE | 2018-12-28 22:23 | PDOC ---
Exam Note: Liam Note: Please also refer to the separate dictated note~for this date of service dictated separately.~Patient seen individually. Discussed the patient with Nursing staff reviewed the chart.~Reviewed interim history and current functioning. Reviewed vital signs,~Labs/ Radiology~and current medications noted below. Continue current treatment with the changes noted in the dictated addendum note Assessment: Vital Signs/I&O: Vital Signs Date Time Temp Pulse Resp B/P (MAP) Pulse Ox O2 Delivery O2 Flow Rate FiO2 12/28/18 15:52 97.4 65 16 146/72 (96) 97.0 12/28/18 05:30 97 I & O 12/27/18 12/27/18 12/28/18 15:00 23:00 07:00 Intake Total 960 ml 240 ml 240 ml Balance 960 ml 240 ml 240 ml Current Medications: Meds: Current Medications Medications (Trade) Dose Ordered Sig/Harinder Route PRN Reason Start Time Stop Time Status Last Admin Dose Admin Influenza Virus Vaccine Quadrival (Afluria Quad 2018- (3yr Up) Syringe) 0.5 ml ONCE ONCE VAX IM 12/28/18 09:00 12/28/18 09:01 DC 12/28/18 11:20 I have reviewed the current psychotropics carefully including drug interactions. Risk benefit ratio favors no change other than as noted in my dictated progress note. Diagnosis: Problems: (1) Anxiety disorder (2) Dementia in Alzheimer's disease with delusions (3) Dementia in Alzheimer's disease with depression (4) Dementia, vascular, with delusions (5) Dementia, vascular, with depression (6) Impulse control disorder (7) Lewy body dementia with behavioral disturbance MAURICE GLASS MD Dec 28, 2018 22:23
[2018-12-29] MEDS: CARBIDOPA/LEVODOPA 25/250MG TABLET PO SCH ×5 (05:35→20:29)
[2018-12-29 06:11] VITALS: BP 164/94
[2018-12-29] MEDS: ALLOPURINOL 300 MG TABLET. PO SCH (07:48)
[2018-12-29] MEDS: ACETAMINOPHEN 325 MG TABLET PO SCH ×2 (07:48→20:28)
[2018-12-29] MEDS: CARBIDOPA/LEVODOPA CR 50/200MG TABLET.SA PO SCH ×2 (07:48→20:27)
[2018-12-29] MEDS: CLOPIDOGREL BISULFATE 75 MG TABLET PO SCH (07:48)
[2018-12-29] MEDS: ASPIRIN ENTERIC COATED 81 MG TABLET.DR. PO SCH (07:48)
[2018-12-29] MEDS: SERTRALINE 50 MG TABLET. PO SCH (07:49)
[2018-12-29] MEDS: PRAMIPEXOLE 0.25 MG TABLET. PO SCH ×3 (07:52→20:27)
[2018-12-29] MEDS: ASCORBIC ACID 500 MG TABLET PO SCH (07:53)
[2018-12-29] MEDS: LACTOBACILLUS RHAMNOSUS GG 1 CAPSULE. PO SCH ×2 (07:53→20:27)
[2018-12-29] MEDS: metFORMIN 500 MG TABLET PO SCH ×2 (07:53→16:15)
[2018-12-29] MEDS: TAMSULOSIN 0.4 MG CAP.ER.24H. PO SCH (07:53)
[2018-12-29] MEDS: MULTIVITAMIN with MINERAL TABLET. PO SCH (07:53)
[2018-12-29] MEDS: RIVASTIGMINE 9.5MG PATCH. TD SCH (07:54)
[2018-12-29] MEDS: POLYETHYLENE GLYCOL 3350 17 GM PACKET. PO SCH (07:55)
[2018-12-29] MEDS: RASAGILINE MESYLATE 0.5 MG PO SCH (07:56)
[2018-12-29] MEDS: MEMANTINE 10 MG TABLET. PO SCH ×2 (07:59→20:27)
[2018-12-29 16:13] VITALS: BP 91/57
[2018-12-29] MEDS: MELATONIN 3 MG TABLET PO SCH (20:26)
[2018-12-29] MEDS: MIRTAZAPINE 15 MG TABLET PO SCH (20:27)
[2018-12-29] MEDS: traZODone 100 MG TABLET. PO SCH (20:27)
--- NOTE | 2018-12-29 21:37 | PDOC ---
Exam Note: Liam Note: Please also refer to the separate dictated note~for this date of service dictated separately.~Patient seen individually. Discussed the patient with Nursing staff reviewed the chart.~Reviewed interim history and current functioning. Reviewed vital signs,~Labs/ Radiology~and current medications noted below. Continue current treatment with the changes noted in the dictated addendum note Assessment: Vital Signs/I&O: Vital Signs Date Time Temp Pulse Resp B/P (MAP) Pulse Ox O2 Delivery O2 Flow Rate FiO2 12/29/18 16:13 97.4 80 16 91/57 (68) 98 12/28/18 15:52 97.0 I & O 12/28/18 12/28/18 12/29/18 15:00 23:00 07:00 Intake Total 720 ml 240 ml Balance 720 ml 240 ml Current Medications: I have reviewed the current psychotropics carefully including drug interactions. Risk benefit ratio favors no change other than as noted in my dictated progress note. Diagnosis: Problems: (1) Anxiety disorder (2) Dementia in Alzheimer's disease with delusions (3) Dementia in Alzheimer's disease with depression (4) Dementia, vascular, with delusions (5) Dementia, vascular, with depression (6) Impulse control disorder (7) Lewy body dementia with behavioral disturbance MAURICE GLASS MD Dec 29, 2018 21:37
--- NOTE | 2018-12-30 00:44 | PN ---
DATE: 12/27/2018 PSYCHIATRIC PROGRESS NOTE This late entry, 12/27, covers elements not covered in my initial note. SUBJECTIVE: I met with the patient in the evening. The patient slept 5-3/4 hours previous night per FANNY Pickering. The patient got his insulin of another patient. Blood sugars were monitored; Dr. Garcia aware of it. Overall, he has been much more awake. REVIEW OF SYSTEMS: Ambulation impaired, in wheelchair. No CV, , pulmonary, eye, ENT system symptoms on review. MENTAL STATUS EXAM: Oriented to himself, at times situation. Speech, often responses monosyllabic. Abstraction fair, computation impaired, language function intact. His cognition varies significantly during the day consistent with Lewy body dementia. LABORATORY DATA: Reviewed. IMPRESSION: Major neurocognitive disorder, Lewy body with delusion, depression, behavioral disturbance; anxiety disorder, unspecified; impulse control disorder, unspecified. PLAN: Continue current psychotropics. The patient's Depakote and Seroquel have been stopped. Maintain Namenda, Exelon, melatonin and Remeron for now together with Zoloft and trazodone. MAN Tonya GLASS MD DR: CHANDAN/nadeem JOB#: [id number] / [id number]
[2018-12-30 05:52] VITALS: BP 162/82
[2018-12-30] MEDS: CARBIDOPA/LEVODOPA 25/250MG TABLET PO SCH ×5 (06:11→21:20)
[2018-12-30] MEDS: MEMANTINE 10 MG TABLET. PO SCH ×2 (07:50→21:19)
[2018-12-30] MEDS: POLYETHYLENE GLYCOL 3350 17 GM PACKET. PO SCH (07:50)
[2018-12-30] MEDS: CARBIDOPA/LEVODOPA CR 50/200MG TABLET.SA PO SCH ×2 (07:50→21:19)
[2018-12-30] MEDS: ASPIRIN ENTERIC COATED 81 MG TABLET.DR. PO SCH (07:50)
[2018-12-30] MEDS: LACTOBACILLUS RHAMNOSUS GG 1 CAPSULE. PO SCH ×2 (07:51→21:19)
[2018-12-30] MEDS: CLOPIDOGREL BISULFATE 75 MG TABLET PO SCH (07:51)
[2018-12-30] MEDS: ALLOPURINOL 300 MG TABLET. PO SCH (07:52)
[2018-12-30] MEDS: MULTIVITAMIN with MINERAL TABLET. PO SCH (07:52)
[2018-12-30] MEDS: PRAMIPEXOLE 0.25 MG TABLET. PO SCH ×3 (07:52→21:19)
[2018-12-30] MEDS: ACETAMINOPHEN 325 MG TABLET PO SCH ×2 (07:52→21:19)
[2018-12-30] MEDS: metFORMIN 500 MG TABLET PO SCH ×2 (07:52→17:27)
[2018-12-30] MEDS: TAMSULOSIN 0.4 MG CAP.ER.24H. PO SCH (07:52)
[2018-12-30] MEDS: SERTRALINE 50 MG TABLET. PO SCH (07:53)
[2018-12-30] MEDS: ASCORBIC ACID 500 MG TABLET PO SCH (07:53)
[2018-12-30] MEDS: RIVASTIGMINE 9.5MG PATCH. TD SCH (07:54)
[2018-12-30] MEDS: RASAGILINE MESYLATE 0.5 MG PO SCH (07:55)
[2018-12-30 16:10] VITALS: BP 113/67
[2018-12-30] MEDS: MELATONIN 3 MG TABLET PO SCH (21:19)
[2018-12-30] MEDS: traZODone 100 MG TABLET. PO SCH (21:19)
[2018-12-30] MEDS: MIRTAZAPINE 15 MG TABLET PO SCH (21:20)
--- NOTE | 2018-12-30 21:49 | PDOC ---
Exam Note: Liam Note: Please also refer to the separate dictated note~for this date of service dictated separately.~Patient seen individually. Discussed the patient with Nursing staff reviewed the chart.~Reviewed interim history and current functioning. Reviewed vital signs,~Labs/ Radiology~and current medications noted below. Continue current treatment with the changes noted in the dictated addendum note Assessment: Vital Signs/I&O: Vital Signs Date Time Temp Pulse Resp B/P (MAP) Pulse Ox O2 Delivery O2 Flow Rate FiO2 12/30/18 16:10 97.1 78 18 113/67 (82) 97 12/30/18 05:52 Room Air 12/28/18 15:52 97.0 I & O 12/29/18 12/29/18 12/30/18 15:00 23:00 07:00 Intake Total 1200 ml 240 ml Balance 1200 ml 240 ml Current Medications: I have reviewed the current psychotropics carefully including drug interactions. Risk benefit ratio favors no change other than as noted in my dictated progress note. Diagnosis: Problems: (1) Anxiety disorder (2) Dementia in Alzheimer's disease with delusions (3) Dementia in Alzheimer's disease with depression (4) Dementia, vascular, with delusions (5) Dementia, vascular, with depression (6) Impulse control disorder (7) Lewy body dementia with behavioral disturbance MAURICE GLASS MD Dec 30, 2018 21:49
[2018-12-31] MEDS: CARBIDOPA/LEVODOPA 25/250MG TABLET PO SCH ×5 (05:43→22:05)
[2018-12-31 06:02] VITALS: BP 179/78
--- NOTE | 2018-12-31 06:29 | PN ---
DATE: 12/28/2018 This late entry 12/28/2018, covers elements not covered in my initial note. SUBJECTIVE: I met with the patient evening of 12/28/2018. The patient slept 7-1/2 hours previous night. He has trouble feeding himself inadvertently, cut his left arm, compliant with medications. He has moved from a Broda to a wheelchair, more awake, alert, able to feed himself better than before, even though it is still a problem. REVIEW OF SYSTEMS: Ambulation impaired. No CV, , pulmonary, eye, ENT system symptoms on review. Reliability poor. MENTAL STATUS EXAM: Oriented to himself. Insight, judgment, recent and remote memory, attention, concentration, fund of knowledge poor, consistent with his diagnosis mentioned in my initial note. PLAN: No change from initial note. MAN Tonya GLASS MD DR: CHANDAN/nadeem JOB#: [id number] / [id number]
--- NOTE | 2018-12-31 06:32 | PN ---
DATE: 12/29/2018 This late entry 12/29/2018, covers elements not covered in my initial note. SUBJECTIVE: I met with the patient evening of 12/29/2018. The patient slept 5-3/4 hours previous night. The drooling is much better per nursing report. He has fed himself breakfast, unable to feed himself dinner. REVIEW OF SYSTEMS: Ambulation impaired, in wheelchair. No CV, , pulmonary, eye, ENT system symptoms on review. Reliability poor. MENTAL STATUS EXAM: Oriented to himself. Insight, judgment, recent and remote memory, attention, concentration, fund of knowledge poor, consistent with his diagnosis. IMPRESSION: Major neurocognitive disorder, probably Lewy body with delusion; depression; behavioral disturbance; anxiety disorder, unspecified; impulse control disorder, unspecified. Rest unchanged. PLAN: Continue current psychotropics. Keep him off the antipsychotics and Depakote. May need to adjust the Exelon patch further. MAURICE GLASS MD DR: CHANDAN/nadeem JOB#: [id number] / [id number]
[2018-12-31] MEDS: MEMANTINE 10 MG TABLET. PO SCH ×2 (08:12→20:21)
[2018-12-31] MEDS: POLYETHYLENE GLYCOL 3350 17 GM PACKET. PO SCH (08:12)
[2018-12-31] MEDS: SERTRALINE 50 MG TABLET. PO SCH (08:12)
[2018-12-31] MEDS: TAMSULOSIN 0.4 MG CAP.ER.24H. PO SCH (08:13)
[2018-12-31] MEDS: metFORMIN 500 MG TABLET PO SCH ×2 (08:13→15:56)
[2018-12-31] MEDS: ASPIRIN ENTERIC COATED 81 MG TABLET.DR. PO SCH (08:13)
[2018-12-31] MEDS: PRAMIPEXOLE 0.25 MG TABLET. PO SCH ×3 (08:13→20:20)
[2018-12-31] MEDS: ALLOPURINOL 300 MG TABLET. PO SCH (08:13)
[2018-12-31] MEDS: ACETAMINOPHEN 325 MG TABLET PO SCH ×2 (08:14→20:19)
[2018-12-31] MEDS: LACTOBACILLUS RHAMNOSUS GG 1 CAPSULE. PO SCH ×2 (08:14→20:21)
[2018-12-31] MEDS: ASCORBIC ACID 500 MG TABLET PO SCH (08:14)
[2018-12-31] MEDS: CLOPIDOGREL BISULFATE 75 MG TABLET PO SCH (08:14)
[2018-12-31] MEDS: MULTIVITAMIN with MINERAL TABLET. PO SCH (08:14)
[2018-12-31] MEDS: CARBIDOPA/LEVODOPA CR 50/200MG TABLET.SA PO SCH ×2 (08:14→20:22)
[2018-12-31] MEDS: RIVASTIGMINE 13.3MG PATCH. TD SCH (08:15)
[2018-12-31] MEDS: RASAGILINE MESYLATE 0.5 MG PO SCH (08:16)
[2018-12-31 16:42] VITALS: BP 116/50
[2018-12-31] MEDS: MELATONIN 3 MG TABLET PO SCH (20:19)
[2018-12-31] MEDS: MIRTAZAPINE 15 MG TABLET PO SCH (20:21)
[2018-12-31] MEDS: traZODone 100 MG TABLET. PO SCH (20:21)
--- NOTE | 2018-12-31 22:22 | PDOC ---
Exam Note: Liam Note: Please also refer to the separate dictated note~for this date of service dictated separately.~Patient seen individually. Discussed the patient with Nursing staff reviewed the chart.~Reviewed interim history and current functioning. Reviewed vital signs,~Labs/ Radiology~and current medications noted below. Continue current treatment with the changes noted in the dictated addendum note Assessment: Vital Signs/I&O: Vital Signs Date Time Temp Pulse Resp B/P (MAP) Pulse Ox O2 Delivery O2 Flow Rate FiO2 12/31/18 16:42 98.1 82 20 116/50 (72) 95 12/30/18 05:52 Room Air 12/28/18 15:52 97.0 I & O 12/30/18 12/30/18 12/31/18 15:00 23:00 07:00 Intake Total 1080 ml 240 ml 120 ml Balance 1080 ml 240 ml 120 ml Current Medications: Meds: Current Medications Medications (Trade) Dose Ordered Sig/Harinder Route PRN Reason Start Time Stop Time Status Last Admin Dose Admin Rivastigmine (Exelon 13.3mg) 1 patch DAILY TD 12/31/18 09:00 12/31/18 08:15 I have reviewed the current psychotropics carefully including drug interactions. Risk benefit ratio favors no change other than as noted in my dictated progress note. Diagnosis: Problems: (1) Anxiety disorder (2) Dementia in Alzheimer's disease with delusions (3) Dementia in Alzheimer's disease with depression (4) Dementia, vascular, with delusions (5) Dementia, vascular, with depression (6) Impulse control disorder (7) Lewy body dementia with behavioral disturbance MAURICE GLASS MD Dec 31, 2018 22:22
[2019-01-01] MEDS: CARBIDOPA/LEVODOPA 25/250MG TABLET PO SCH ×6 (06:00→22:59)
[2019-01-01 06:01] VITALS: BP 167/90
--- NOTE | 2019-01-01 06:58 | PN ---
DATE: 12/30/2018 This late entry 12/30/2018 covers elements not covered in my initial note. SUBJECTIVE: I met with the patient evening of 12/30/2018. The patient slept 6-1/2 hours previous night. Per FANNY Apple, the patient had a much better day and described as a "great day." He has had less drooling and was sucking on jolly ranchers, which he feels helps the drooling. He ate breakfast and lunch himself. No problems trying to transfer himself. Speech is clear. REVIEW OF SYSTEMS: Ambulation impaired, in wheelchair, but much improved. No CV, , pulmonary, eye system symptoms on review. Very pleasant, smiling as I met with him. MENTAL STATUS EXAM: Oriented to himself at times situation. Speech has some latency, coherent. Abstraction fair, computation impaired, language function intact, attention span short. Mood and affect, lability is improved. LABORATORY DATA: Reviewed. IMPRESSION: Psychotic disorder, unspecified; major neurocognitive disorder, probably Lewy body with delusion, depression, behavioral disturbance; anxiety disorder, unspecified; impulse control disorder, unspecified. Rest unchanged. PLAN: Increase the Exelon patch from 9.5 mg a day to 13.3 mg a day. Maintain Zoloft, Sinemet, trazodone, Remeron, Namenda along with melatonin as before and Zyprexa p.r.n. MAURICE GLASS MD DR: CHANDAN/nadeem JOB#: [id number] / [id number]
[2019-01-01] MEDS: SERTRALINE 50 MG TABLET. PO SCH (09:58)
[2019-01-01] MEDS: MEMANTINE 10 MG TABLET. PO SCH ×2 (09:59→20:26)
[2019-01-01] MEDS: CARBIDOPA/LEVODOPA CR 50/200MG TABLET.SA PO SCH ×2 (09:59→20:33)
[2019-01-01] MEDS: ACETAMINOPHEN 325 MG TABLET PO SCH ×2 (09:59→20:33)
[2019-01-01] MEDS: ASCORBIC ACID 500 MG TABLET PO SCH (09:59)
[2019-01-01] MEDS: MULTIVITAMIN with MINERAL TABLET. PO SCH (09:59)
[2019-01-01] MEDS: TAMSULOSIN 0.4 MG CAP.ER.24H. PO SCH (09:59)
[2019-01-01] MEDS: ASPIRIN ENTERIC COATED 81 MG TABLET.DR. PO SCH (09:59)
[2019-01-01] MEDS: POLYETHYLENE GLYCOL 3350 17 GM PACKET. PO SCH (10:00)
[2019-01-01] MEDS: metFORMIN 500 MG TABLET PO SCH ×2 (10:00→17:34)
[2019-01-01] MEDS: ALLOPURINOL 300 MG TABLET. PO SCH (10:00)
[2019-01-01] MEDS: CLOPIDOGREL BISULFATE 75 MG TABLET PO SCH (10:00)
[2019-01-01] MEDS: PRAMIPEXOLE 0.25 MG TABLET. PO SCH ×3 (10:00→20:26)
[2019-01-01] MEDS: LACTOBACILLUS RHAMNOSUS GG 1 CAPSULE. PO SCH ×2 (10:00→20:27)
[2019-01-01] MEDS: RIVASTIGMINE 13.3MG PATCH. TD SCH (10:01)
[2019-01-01] MEDS: RASAGILINE MESYLATE 0.5 MG PO SCH (10:01)
[2019-01-01 16:14] VITALS: BP 150/55
[2019-01-01] MEDS: traZODone 100 MG TABLET. PO SCH (20:25)
[2019-01-01] MEDS: CARBIDOPA/LEVODOPA 25/250MG TABLET PO PRN (20:25)
[2019-01-01] MEDS: MIRTAZAPINE 15 MG TABLET PO SCH (20:26)
[2019-01-01] MEDS: MELATONIN 3 MG TABLET PO SCH (20:26)
--- NOTE | 2019-01-01 21:36 | PDOC ---
Exam Note: Liam Note: Please also refer to the separate dictated note~for this date of service dictated separately.~Patient seen individually. Discussed the patient with Nursing staff reviewed the chart.~Reviewed interim history and current functioning. Reviewed vital signs,~Labs/ Radiology~and current medications noted below. Continue current treatment with the changes noted in the dictated addendum note Assessment: Vital Signs/I&O: Vital Signs Date Time Temp Pulse Resp B/P (MAP) Pulse Ox O2 Delivery O2 Flow Rate FiO2 01/01/19 16:14 97.6 71 18 150/55 (86) 98 12/30/18 05:52 Room Air 12/28/18 15:52 97.0 I & O 12/31/18 12/31/18 01/01/19 14:59 22:59 06:59 Intake Total 720 ml 480 ml 120 ml Balance 720 ml 480 ml 120 ml Current Medications: I have reviewed the current psychotropics carefully including drug interactions. Risk benefit ratio favors no change other than as noted in my dictated progress note. Diagnosis: Problems: (1) Anxiety disorder (2) Dementia in Alzheimer's disease with delusions (3) Dementia in Alzheimer's disease with depression (4) Dementia, vascular, with delusions (5) Dementia, vascular, with depression (6) Impulse control disorder (7) Lewy body dementia with behavioral disturbance MAURICE GLASS MD Jan 01, 2019 21:36
[2019-01-02 05:33] VITALS: BP 138/77
[2019-01-02] MEDS: CARBIDOPA/LEVODOPA 25/250MG TABLET PO SCH ×4 (05:48→17:38)
--- NOTE | 2019-01-02 06:57 | PN ---
DATE: 12/31/2018 PSYCHIATRIC PROGRESS NOTE This late entry, 12/31, covers elements not covered in my initial note. SUBJECTIVE: I met with the patient evening of 12/31. Per nursing report with FANNY Stahl, patient slept 5-1/2 hours previous night. He remains more awake, alert, able to ask nursing staff when he needs his Sinemet and very particular about getting it exactly at the right time. He did receive Zyprexa Zydis at night due to agitation. Drooling is better. Agitation better during the day on 12/31. Wound care has signed off from wound care of his hands and arms. REVIEW OF SYSTEMS: Ambulation impaired, in wheelchair. No CV, , pulmonary, eye, ENT system symptoms on review. Difficulty movements consequent to his Parkinson's. Reliability poor. MENTAL STATUS EXAM: Oriented to himself and situation. Speech is low in volume, often responses monosyllabic. Abstraction fair, computation impaired, language function intact. Mood and affect somewhat withdrawn. LABORATORY DATA: Reviewed. IMPRESSION: Unchanged from initial note. PLAN: No change from initial note. MAN Tonya GLASS MD DR: CHANDAN/nadeem JOB#: [id number] / [id number]
[2019-01-02] MEDS: TAMSULOSIN 0.4 MG CAP.ER.24H. PO SCH (08:07)
[2019-01-02] MEDS: LACTOBACILLUS RHAMNOSUS GG 1 CAPSULE. PO SCH ×2 (08:07→20:36)
[2019-01-02] MEDS: ASCORBIC ACID 500 MG TABLET PO SCH (08:07)
[2019-01-02] MEDS: MEMANTINE 10 MG TABLET. PO SCH ×2 (08:07→20:36)
[2019-01-02] MEDS: PRAMIPEXOLE 0.25 MG TABLET. PO SCH ×3 (08:07→20:36)
[2019-01-02] MEDS: POLYETHYLENE GLYCOL 3350 17 GM PACKET. PO SCH (08:07)
[2019-01-02] MEDS: CARBIDOPA/LEVODOPA CR 50/200MG TABLET.SA PO SCH ×2 (08:07→20:36)
[2019-01-02] MEDS: ALLOPURINOL 300 MG TABLET. PO SCH (08:07)
[2019-01-02] MEDS: CLOPIDOGREL BISULFATE 75 MG TABLET PO SCH (08:07)
[2019-01-02] MEDS: ACETAMINOPHEN 325 MG TABLET PO SCH ×2 (08:08→20:35)
[2019-01-02] MEDS: SERTRALINE 50 MG TABLET. PO SCH (08:08)
[2019-01-02] MEDS: MULTIVITAMIN with MINERAL TABLET. PO SCH (08:09)
[2019-01-02] MEDS: ASPIRIN ENTERIC COATED 81 MG TABLET.DR. PO SCH (08:09)
[2019-01-02] MEDS: metFORMIN 500 MG TABLET PO SCH ×2 (08:09→17:37)
[2019-01-02] MEDS: RIVASTIGMINE 13.3MG PATCH. TD SCH (08:15)
[2019-01-02] MEDS: RASAGILINE MESYLATE 0.5 MG PO SCH (10:58)
[2019-01-02 17:14] VITALS: BP 118/73
[2019-01-02] MEDS: traZODone 100 MG TABLET. PO SCH (20:36)
[2019-01-02] MEDS: MELATONIN 3 MG TABLET PO SCH (20:36)
[2019-01-02] MEDS: MIRTAZAPINE 15 MG TABLET PO SCH (20:37)
--- NOTE | 2019-01-02 21:57 | PDOC ---
Exam Note: Liam Note: Please also refer to the separate dictated note~for this date of service dictated separately.~Patient seen individually. Discussed the patient with Nursing staff reviewed the chart.~Reviewed interim history and current functioning. Reviewed vital signs,~Labs/ Radiology~and current medications noted below. Continue current treatment with the changes noted in the dictated addendum note Assessment: Vital Signs/I&O: Vital Signs Date Time Temp Pulse Resp B/P (MAP) Pulse Ox O2 Delivery O2 Flow Rate FiO2 01/02/19 17:14 98.6 77 16 118/73 (88) 98 12/30/18 05:52 Room Air 12/28/18 15:52 97.0 I & O 01/01/19 01/01/19 01/02/19 15:00 23:00 07:00 Intake Total 960 ml 240 ml 120 ml Balance 960 ml 240 ml 120 ml Current Medications: I have reviewed the current psychotropics carefully including drug interactions. Risk benefit ratio favors no change other than as noted in my dictated progress note. Diagnosis: Problems: (1) Anxiety disorder (2) Dementia in Alzheimer's disease with delusions (3) Dementia in Alzheimer's disease with depression (4) Dementia, vascular, with delusions (5) Dementia, vascular, with depression (6) Impulse control disorder (7) Lewy body dementia with behavioral disturbance MAURICE GLASS MD Jan 02, 2019 21:56
[2019-01-03] MEDS: CARBIDOPA/LEVODOPA 25/250MG TABLET PO SCH ×6 (00:50→22:30)
[2019-01-03 06:08] VITALS: BP 126/61
[2019-01-03] MEDS: ASPIRIN ENTERIC COATED 81 MG TABLET.DR. PO SCH (08:49)
[2019-01-03] MEDS: POLYETHYLENE GLYCOL 3350 17 GM PACKET. PO SCH (08:49)
[2019-01-03] MEDS: MEMANTINE 10 MG TABLET. PO SCH ×2 (08:50→20:33)
[2019-01-03] MEDS: RIVASTIGMINE 13.3MG PATCH. TD SCH (08:50)
[2019-01-03] MEDS: LACTOBACILLUS RHAMNOSUS GG 1 CAPSULE. PO SCH ×2 (08:50→20:33)
[2019-01-03] MEDS: ASCORBIC ACID 500 MG TABLET PO SCH (08:50)
[2019-01-03] MEDS: CLOPIDOGREL BISULFATE 75 MG TABLET PO SCH (08:50)
[2019-01-03] MEDS: metFORMIN 500 MG TABLET PO SCH ×2 (08:50→17:29)
[2019-01-03] MEDS: PRAMIPEXOLE 0.25 MG TABLET. PO SCH ×3 (08:50→20:34)
[2019-01-03] MEDS: ACETAMINOPHEN 325 MG TABLET PO SCH ×2 (08:50→20:33)
[2019-01-03] MEDS: ALLOPURINOL 300 MG TABLET. PO SCH (08:50)
[2019-01-03] MEDS: TAMSULOSIN 0.4 MG CAP.ER.24H. PO SCH (08:50)
[2019-01-03] MEDS: MULTIVITAMIN with MINERAL TABLET. PO SCH (08:50)
[2019-01-03] MEDS: CARBIDOPA/LEVODOPA CR 50/200MG TABLET.SA PO SCH ×2 (08:50→20:32)
[2019-01-03] MEDS: SERTRALINE 100 MG TABLET. PO SCH (08:51)
[2019-01-03] MEDS: RASAGILINE MESYLATE 0.5 MG PO SCH (08:54)
[2019-01-03 16:34] VITALS: BP 149/78
[2019-01-03] MEDS: traZODone 100 MG TABLET. PO SCH (20:32)
[2019-01-03] MEDS: MELATONIN 3 MG TABLET PO SCH (20:33)
[2019-01-03] MEDS: MIRTAZAPINE 15 MG TABLET PO SCH (20:33)
--- NOTE | 2019-01-03 21:46 | PDOC ---
Exam Note: Liam Note: Please also refer to the separate dictated note~for this date of service dictated separately.~Patient seen individually. Discussed the patient with Nursing staff reviewed the chart.~Reviewed interim history and current functioning. Reviewed vital signs,~Labs/ Radiology~and current medications noted below. Continue current treatment with the changes noted in the dictated addendum note Assessment: Vital Signs/I&O: Vital Signs Date Time Temp Pulse Resp B/P (MAP) Pulse Ox O2 Delivery O2 Flow Rate FiO2 01/03/19 16:34 97.6 71 18 149/78 (101) 100 12/30/18 05:52 Room Air 12/28/18 15:52 97.0 I & O 0 01/02/19 01/02/19 01/03/19 15:00 23:00 07:00 Intake Total 480 ml 840 ml 240 ml Balance 480 ml 840 ml 240 ml Current Medications: Meds: Current Medications Medications (Trade) Dose Ordered Sig/Harinder Route PRN Reason Start Time Stop Time Status Last Admin Dose Admin Sertraline HCl (Zoloft) 100 mg DAILY PO 01/03/19 09:00 01/03/19 08:51 I have reviewed the current psychotropics carefully including drug interactions. Risk benefit ratio favors no change other than as noted in my dictated progress note. Diagnosis: Problems: (1) Anxiety disorder (2) Dementia in Alzheimer's disease with delusions (3) Dementia in Alzheimer's disease with depression (4) Dementia, vascular, with delusions (5) Dementia, vascular, with depression (6) Impulse control disorder (7) Lewy body dementia with behavioral disturbance MAURICE GLASS MD Jan 03, 2019 21:46
--- NOTE | 2019-01-03 23:05 | PN ---
DATE: 01/01/2019 PSYCHIATRIC PROGRESS NOTE This late entry 01/01/2019 covers elements not covered in my initial note. SUBJECTIVE: I met with the patient evening of 01/01/2019. Per FANNY Weeks, the patient had a good day the day before. During the day on 01/01/2019, he has had some drooling, demanding and the patient refused his a.m. Sinemet. We will defer to Dr. Cerda. REVIEW OF SYSTEMS: Ambulation impaired, in wheelchair. No CV, , pulmonary, eye system symptoms on review. MENTAL STATUS EXAMINATION: Oriented to himself and situation. Speech has some latency, coherent, often responses monosyllabic. Abstraction fair, computation impaired, language function intact. Short term memory is impaired, but much more awake, alert than a few days back. LABORATORY DATA: Reviewed. IMPRESSION: Major neurocognitive disorder, possibly Lewy body with delusion, depression, behavioral disturbance; anxiety disorder, unspecified; impulse control disorder, unspecified. Rest unchanged. PLAN: No change from initial note. Defer Parkinson's management to Dr. Cerda. Rest unchanged for now. MAN Tonya GLASS MD DR: CHANDAN/nadeem JOB#: [id number] / [id number]
--- NOTE | 2019-01-03 23:07 | PN ---
DATE: 01/02/2019 PSYCHIATRIC PROGRESS NOTE This late entry 01/02/2019 covers the elements not covered in my initial note. SUBJECTIVE: I met with the patient in the evening of 01/02/2019 and staffed at a treatment team meeting with the entire team in the morning. Reviewed his history at length. The patient is sleeping 6 hours average. Appetite is 75-100%. Drooling has been increased. We will defer to Dr. Cerda, Neurology. He has been demanding at times, but better with ambulation. REVIEW OF SYSTEMS: Ambulation still impaired, in wheelchair, but improved. No CV, , pulmonary, eye system symptoms on review. MENTAL STATUS EXAM: Oriented to himself and situation. Speech is difficult to understand at times. At times, coherent, abstraction fair, computation impaired, language function intact. Mood and affect somewhat less labile and anxious. Does have short term memory deficits. LABORATORY DATA: Reviewed. IMPRESSION: Major neurocognitive disorder, Lewy body with delusion, depression, behavioral disturbance. Rest unchanged. PLAN: No change from initial note, but we will increase her Zoloft from 75 mg a day to 100 mg a day. Rest unchanged. MAN Tonya GLASS MD DR: CHANDAN/nadeem JOB#: [id number] / [id number]
[2019-01-04] MEDS: CARBIDOPA/LEVODOPA 25/250MG TABLET PO SCH ×5 (06:05→23:03)
[2019-01-04 06:06] VITALS: BP 123/79
[2019-01-04] MEDS: POLYETHYLENE GLYCOL 3350 17 GM PACKET. PO SCH (07:56)
[2019-01-04] MEDS: SERTRALINE 100 MG TABLET. PO SCH (07:56)
[2019-01-04] MEDS: ASCORBIC ACID 500 MG TABLET PO SCH (07:56)
[2019-01-04] MEDS: RIVASTIGMINE 13.3MG PATCH. TD SCH (07:56)
[2019-01-04] MEDS: LACTOBACILLUS RHAMNOSUS GG 1 CAPSULE. PO SCH ×2 (07:57→19:24)
[2019-01-04] MEDS: ASPIRIN ENTERIC COATED 81 MG TABLET.DR. PO SCH (07:57)
[2019-01-04] MEDS: ACETAMINOPHEN 325 MG TABLET PO SCH ×2 (07:57→19:24)
[2019-01-04] MEDS: CARBIDOPA/LEVODOPA CR 50/200MG TABLET.SA PO SCH ×2 (07:57→19:25)
[2019-01-04] MEDS: PRAMIPEXOLE 0.25 MG TABLET. PO SCH ×3 (07:57→19:24)
[2019-01-04] MEDS: CLOPIDOGREL BISULFATE 75 MG TABLET PO SCH (07:57)
[2019-01-04] MEDS: MULTIVITAMIN with MINERAL TABLET. PO SCH (07:57)
[2019-01-04] MEDS: TAMSULOSIN 0.4 MG CAP.ER.24H. PO SCH (07:57)
[2019-01-04] MEDS: metFORMIN 500 MG TABLET PO SCH ×2 (07:58→17:08)
[2019-01-04] MEDS: ALLOPURINOL 300 MG TABLET. PO SCH (07:58)
[2019-01-04] MEDS: MEMANTINE 10 MG TABLET. PO SCH ×2 (07:58→19:24)
[2019-01-04] MEDS: RASAGILINE MESYLATE 0.5 MG PO SCH (07:59)
[2019-01-04 15:57] VITALS: BP 174/79
[2019-01-04] MEDS: MIRTAZAPINE 15 MG TABLET PO SCH (19:24)
[2019-01-04] MEDS: MELATONIN 3 MG TABLET PO SCH (19:24)
[2019-01-04] MEDS: traZODone 100 MG TABLET. PO SCH (19:24)
--- NOTE | 2019-01-04 22:00 | PDOC ---
Exam Note: Liam Note: Please also refer to the separate dictated note~for this date of service dictated separately.~Patient seen individually. Discussed the patient with Nursing staff reviewed the chart.~Reviewed interim history and current functioning. Reviewed vital signs,~Labs/ Radiology~and current medications noted below. Continue current treatment with the changes noted in the dictated addendum note Assessment: Vital Signs/I&O: Vital Signs Date Time Temp Pulse Resp B/P (MAP) Pulse Ox O2 Delivery O2 Flow Rate FiO2 01/04/19 15:57 97.0 69 20 174/79 (110) 100 Room Air I & O 01/03/19 01/03/19 01/04/19 15:00 23:00 07:00 Intake Total 600 ml 480 ml 120 ml Balance 600 ml 480 ml 120 ml Current Medications: I have reviewed the current psychotropics carefully including drug interactions. Risk benefit ratio favors no change other than as noted in my dictated progress note. 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
[2019-01-05] MEDS: CARBIDOPA/LEVODOPA 25/250MG TABLET PO SCH ×5 (06:10→21:25)
[2019-01-05 06:38] VITALS: BP 143/73
[2019-01-05] MEDS: POLYETHYLENE GLYCOL 3350 17 GM PACKET. PO SCH (07:48)
[2019-01-05] MEDS: ASCORBIC ACID 500 MG TABLET PO SCH (07:50)
[2019-01-05] MEDS: PRAMIPEXOLE 0.25 MG TABLET. PO SCH ×3 (07:50→21:19)
[2019-01-05] MEDS: RIVASTIGMINE 13.3MG PATCH. TD SCH (07:50)
[2019-01-05] MEDS: MEMANTINE 10 MG TABLET. PO SCH ×2 (07:50→21:24)
[2019-01-05] MEDS: ALLOPURINOL 300 MG TABLET. PO SCH (07:50)
[2019-01-05] MEDS: LACTOBACILLUS RHAMNOSUS GG 1 CAPSULE. PO SCH ×2 (07:50→21:19)
[2019-01-05] MEDS: SERTRALINE 100 MG TABLET. PO SCH (07:51)
[2019-01-05] MEDS: metFORMIN 500 MG TABLET PO SCH ×2 (07:51→17:07)
[2019-01-05] MEDS: CARBIDOPA/LEVODOPA CR 50/200MG TABLET.SA PO SCH ×2 (07:51→21:24)
[2019-01-05] MEDS: CLOPIDOGREL BISULFATE 75 MG TABLET PO SCH (07:51)
[2019-01-05] MEDS: ACETAMINOPHEN 325 MG TABLET PO SCH ×2 (07:51→21:24)
[2019-01-05] MEDS: ASPIRIN ENTERIC COATED 81 MG TABLET.DR. PO SCH (07:51)
[2019-01-05] MEDS: TAMSULOSIN 0.4 MG CAP.ER.24H. PO SCH (07:51)
[2019-01-05] MEDS: MULTIVITAMIN with MINERAL TABLET. PO SCH (07:52)
[2019-01-05] MEDS: RASAGILINE MESYLATE 0.5 MG PO SCH (07:52)
[2019-01-05 09:48] LABS: BASO % 0 % (0-3); EOS # 0.3 x10^3/uL (0.0-0.7); EOS % 4 % (0-3); HEMOGLOBIN 10.8 g/dL (13.0-17.5); LYMPH % 16 % (24-48); MEAN CORPUSCULAR HEMOGLOBIN 33 pg (25-35); MEAN CORPUSCULAR HGB CONC 34 g/dL (31-37); MEAN CORPUSCULAR VOLUME 97 fL (79-100); MONO # 0.6 x10^3/uL (0.0-1.1); MONO % 10 % (0-9); NEUT # 4.3 x10^3uL (1.8-7.7); NEUT % 70 % (31-73); PLATELET COUNT 192 x10^3/uL (140-400); RED BLOOD COUNT 3.29 x10^6/uL (4.30-5.70); WHITE BLOOD COUNT 6.2 x10^3/uL (4.0-11.0)
[2019-01-05 09:57] LABS: ALBUMIN 3.1 g/dL (3.4-5.0); CALCIUM 8.7 mg/dL (8.5-10.1); CREATININE 1.2 mg/dL (0.7-1.3); MAGNESIUM 1.7 mg/dL (1.8-2.4); POTASSIUM 4.3 mmol/L (3.5-5.1); TOTAL BILIRUBIN 0.3 mg/dL (0.2-1.0); TOTAL PROTEIN 6.3 g/dL (6.4-8.2)
[2019-01-05] MEDS: CARBIDOPA/LEVODOPA 25/250MG TABLET PO PRN (12:04)
[2019-01-05 16:31] VITALS: BP 100/63
[2019-01-05] MEDS: PATCH REMOVAL. MC SCH (21:00)
[2019-01-05] MEDS: MIRTAZAPINE 15 MG TABLET PO SCH (21:19)
[2019-01-05] MEDS: MELATONIN 3 MG TABLET PO SCH (21:24)
[2019-01-05] MEDS: traZODone 100 MG TABLET. PO SCH (21:25)
[2019-01-06] MEDS: CARBIDOPA/LEVODOPA 25/250MG TABLET PO SCH ×5 (05:40→20:07)
[2019-01-06 05:42] VITALS: BP 146/74
--- NOTE | 2019-01-06 07:29 | PN ---
DATE: SUBJECTIVE: An 83-year-old white male who has been having problems with his shoulders. The patient notes decreased range of motion and painful movement there. The patient has limited range of motion in those shoulders, probably related to degenerative arthritis in there as well. OBJECTIVE: VITAL SIGNS: Blood pressure 143/70, respiratory rate 16, pulse 60, afebrile. NEUROLOGIC: Baseline mental status. LUNGS: Diminished throughout. EXTREMITIES: The patient has very poor movement and even on passive range of motion. He has some old injuries there and obviously very uncomfortable for this gentleman. PLAN: We will go ahead and start him on Lidoderm patches to each shoulder one per shoulder daily. IMPRESSION: Degenerative arthritis of the shoulders, particularly the right shoulder worse than that of the left, probably from an old injury as well as just aging process. Try that and passive range of motion. MARIANELA SINGH MD DR: TY/nadeem JOB#: [id number] / [id number]
[2019-01-06] MEDS: RIVASTIGMINE 13.3MG PATCH. TD SCH (07:58)
[2019-01-06] MEDS: ASCORBIC ACID 500 MG TABLET PO SCH (07:58)
[2019-01-06] MEDS: LACTOBACILLUS RHAMNOSUS GG 1 CAPSULE. PO SCH ×2 (07:58→20:07)
[2019-01-06] MEDS: PRAMIPEXOLE 0.25 MG TABLET. PO SCH ×3 (07:59→20:07)
[2019-01-06] MEDS: CLOPIDOGREL BISULFATE 75 MG TABLET PO SCH (07:59)
[2019-01-06] MEDS: CARBIDOPA/LEVODOPA CR 50/200MG TABLET.SA PO SCH ×2 (07:59→20:07)
[2019-01-06] MEDS: TAMSULOSIN 0.4 MG CAP.ER.24H. PO SCH (07:59)
[2019-01-06] MEDS: ACETAMINOPHEN 325 MG TABLET PO SCH ×2 (07:59→20:07)
[2019-01-06] MEDS: ALLOPURINOL 300 MG TABLET. PO SCH (07:59)
[2019-01-06] MEDS: SERTRALINE 100 MG TABLET. PO SCH (07:59)
[2019-01-06] MEDS: POLYETHYLENE GLYCOL 3350 17 GM PACKET. PO SCH (07:59)
[2019-01-06] MEDS: RASAGILINE MESYLATE 0.5 MG PO SCH (08:00)
[2019-01-06] MEDS: MEMANTINE 10 MG TABLET. PO SCH ×2 (08:00→20:07)
[2019-01-06] MEDS: ASPIRIN ENTERIC COATED 81 MG TABLET.DR. PO SCH (08:00)
[2019-01-06] MEDS: metFORMIN 500 MG TABLET PO SCH ×2 (08:00→16:50)
[2019-01-06] MEDS: MULTIVITAMIN with MINERAL TABLET. PO SCH (08:00)
[2019-01-06] MEDS: LIDOCAINE (700MG/PATCH) PATCH. TD SCH (08:02)
[2019-01-06 16:15] VITALS: BP 161/78
--- NOTE | 2019-01-06 16:54 | PN ---
DATE: 01/05/2019 SUBJECTIVE: The patient was seen today, met with the staff, chart reviewed. The patient is still confused, having involuntary movements, also pressure of speech. The patient is currently on wheelchair. The patient was able to hold a conversation, is alert and also stated that he was able to make a phone call to his and had a normal conversation. OBSERVATION: VITAL SIGNS: Temperature 97, blood pressure 143/73, pulse 60, respirations 16, O2 sat 97%. GENERAL: Slept about 8 hours last night. Staff reports no major behavior problems. No falls and no major physical complaints. LABORATORY DATA: The patient's lab reviewed. Hemoglobin level of 10.8. BUN 29. The patient's Depakote level was 20. ASSESSMENT: Major neurocognitive disorder, most likely Parkinson's and Lewy body disease; anxiety disorder, unspecified. PLAN: To continue with the treatment. ROSELIA SON MD DR: LIZ/nadeem JOB#: [id number] / [id number]
[2019-01-06] MEDS: MELATONIN 3 MG TABLET PO SCH (20:07)
[2019-01-06] MEDS: traZODone 100 MG TABLET. PO SCH (20:07)
[2019-01-06] MEDS: MIRTAZAPINE 15 MG TABLET PO SCH (20:07)
[2019-01-06] MEDS: PATCH REMOVAL. MC SCH (20:08)
[2019-01-07] MEDS: CARBIDOPA/LEVODOPA 25/250MG TABLET PO SCH ×5 (05:54→20:32)
[2019-01-07 05:55] VITALS: BP 129/69
[2019-01-07] MEDS: POLYETHYLENE GLYCOL 3350 17 GM PACKET. PO SCH (07:45)
[2019-01-07] MEDS: TAMSULOSIN 0.4 MG CAP.ER.24H. PO SCH (07:46)
[2019-01-07] MEDS: PRAMIPEXOLE 0.25 MG TABLET. PO SCH ×3 (07:46→20:32)
[2019-01-07] MEDS: CARBIDOPA/LEVODOPA CR 50/200MG TABLET.SA PO SCH ×2 (07:47→20:32)
[2019-01-07] MEDS: metFORMIN 500 MG TABLET PO SCH ×2 (07:47→16:47)
[2019-01-07] MEDS: LACTOBACILLUS RHAMNOSUS GG 1 CAPSULE. PO SCH ×2 (07:47→20:31)
[2019-01-07] MEDS: ASPIRIN ENTERIC COATED 81 MG TABLET.DR. PO SCH (07:47)
[2019-01-07] MEDS: ASCORBIC ACID 500 MG TABLET PO SCH (07:47)
[2019-01-07] MEDS: MEMANTINE 10 MG TABLET. PO SCH ×2 (07:47→20:32)
[2019-01-07] MEDS: CLOPIDOGREL BISULFATE 75 MG TABLET PO SCH (07:47)
[2019-01-07] MEDS: MULTIVITAMIN with MINERAL TABLET. PO SCH (07:47)
[2019-01-07] MEDS: RIVASTIGMINE 13.3MG PATCH. TD SCH (07:48)
[2019-01-07] MEDS: LIDOCAINE (700MG/PATCH) PATCH. TD SCH (07:48)
[2019-01-07] MEDS: ALLOPURINOL 300 MG TABLET. PO SCH (07:48)
[2019-01-07] MEDS: SERTRALINE 100 MG TABLET. PO SCH (07:48)
[2019-01-07] MEDS: ACETAMINOPHEN 325 MG TABLET PO SCH ×2 (07:48→20:32)
[2019-01-07] MEDS: RASAGILINE MESYLATE 0.5 MG PO SCH (07:49)
--- NOTE | 2019-01-07 12:04 | PN ---
DATE: 01/06/2019 SUBJECTIVE: The patient was seen today, met with the staff, chart reviewed and also covering for Dr. Lemons. The patient continues to exhibit involuntary movements, confusion and pressure of speech and he is on wheelchair. Staff reports no falls. The patient seems to be restless and wanting to talk to his on the phone and having difficulty following directions. OBSERVATION: VITAL SIGNS: Temperature 98, blood pressure 146/74, pulse 61, respirations 20, O2 sat 98%. Slept about 6 hours last night. CURRENT MEDICATIONS: The patient's current medications include Zoloft 100 mg daily, Exelon patch 13.3 mg daily, Namenda 10 mg b.i.d., melatonin 3 mg at night, mirtazapine 15 mg at night, trazodone 100 mg at night p.r.n. for sleep and also 100 mg at night. The patient is also on carbidopa/levodopa. The patient is not having any major side effects. LABORATORY DATA: The patient's lab reviewed. ASSESSMENT: 1. Major neurocognitive disorder, most likely Parkinson's and Lewy body disease. 2. Anxiety disorder, unspecified. PLAN: To continue with the treatment. ROSELIA SON MD DR: LIZ/nadeem JOB#: [id number] / [id number]
[2019-01-07 16:29] VITALS: BP 120/67
[2019-01-07] MEDS: MIRTAZAPINE 15 MG TABLET PO SCH (20:31)
[2019-01-07] MEDS: MELATONIN 3 MG TABLET PO SCH (20:32)
[2019-01-07] MEDS: traZODone 100 MG TABLET. PO SCH (20:32)
[2019-01-07] MEDS: PATCH REMOVAL. MC SCH (20:33)
--- NOTE | 2019-01-07 21:56 | PDOC ---
Exam Note: Liam Note: Please also refer to the separate dictated note~for this date of service dictated separately.~Patient seen individually. Discussed the patient with Nursing staff reviewed the chart.~Reviewed interim history and current functioning. Reviewed vital signs,~Labs/ Radiology~and current medications noted below. Continue current treatment with the changes noted in the dictated addendum note Assessment: Vital Signs/I&O: Vital Signs Date Time Temp Pulse Resp B/P (MAP) Pulse Ox O2 Delivery O2 Flow Rate FiO2 01/07/19 16:29 97.0 65 16 120/67 (84) 99 01/05/19 06:38 Room Air I & O 01/06/19 01/06/19 01/07/19 15:00 23:00 07:00 Intake Total 720 ml 720 ml Balance 720 ml 720 ml Labs: Laboratory Tests Test 01/07/19 07:55 Glucose (Fingerstick) 97 mg/dL (70-99) Current Medications: I have reviewed the current psychotropics carefully including drug interactions. Risk benefit ratio favors no change other than as noted in my dictated progress note. Diagnosis: Problems: (1) Anxiety disorder (2) Dementia in Alzheimer's disease with delusions (3) Dementia in Alzheimer's disease with depression (4) Dementia, vascular, with delusions (5) Dementia, vascular, with depression (6) Impulse control disorder (7) Lewy body dementia with behavioral disturbance MAURICE GLASS MD Jan 07, 2019 21:56
--- NOTE | 2019-01-08 01:37 | PN ---
DATE: 01/03/2019 PSYCHIATRIC PROGRESS NOTE This late entry, 01/03, covers elements not covered in my initial note. SUBJECTIVE: I met with the patient evening of 01/03. Per FANNY Torres, patient slept 5 hours previous night. He has done better, less agitated, though he did have an episode of slight agitation with one of the other demented patients. REVIEW OF SYSTEMS: No CV, , pulmonary, eye system symptoms on review. Gait unsteady, in wheelchair. MENTAL STATUS EXAM: Oriented to himself, situation. Speech has some latency, coherent, low in volume. General functioning consistent with his Parkinson's. Abstraction fair, computation impaired, language function intact. Memory is impaired. No active suicidal or homicidal ideation. LABORATORY DATA: Reviewed. IMPRESSION: Major neurocognitive disorder, probably Lewy body with delusion, depression, behavioral disturbance; anxiety disorder, unspecified; impulse control disorder, unspecified. Rest unchanged for now. PLAN: No change from initial note. MAN Tonya GLASS MD DR: CHANDAN/nadeem JOB#: [id number] / [id number]
[2019-01-08 04:51] VITALS: BP 157/76
--- NOTE | 2019-01-08 05:09 | PN ---
DATE: 01/04/2019 PSYCHIATRIC PROGRESS NOTE This late entry 01/04/2019 covers elements not covered in my initial note. SUBJECTIVE: I met with the patient in the morning of 01/04/2019. The patient slept 7-3/4 hours previous night per FANNY Tay. He has been talking about wanting to see his mother, but nursing staff believed he is looking for his . Complains of left shoulder pain, impaired ambulation. REVIEW OF SYSTEMS: No CV, , pulmonary, eye system symptoms on review. MENTAL STATUS EXAM: Oriented to himself and situation. Speech has some latency, consistent with his Parkinson's. Abstraction fair, computation impaired, language function intact, attention span short. Mood and affect remains somewhat withdrawn. LABORATORY DATA: Reviewed. IMPRESSION: Major neurocognitive disorder, Lewy body with delusion, depression, behavioral disturbance. Rest unchanged. PLAN: No change from initial note. Dr. Srivastava will cover for me for 01/05/2019 and 01/06/2019. MAN Tonya GLASS MD DR: CHANDAN/nts JOB#: [id number] / [id number]
[2019-01-08 06:00] VITALS: BP 157/76
[2019-01-08] MEDS: CARBIDOPA/LEVODOPA 25/250MG TABLET PO SCH ×5 (06:01→20:20)
[2019-01-08] MEDS: ASPIRIN ENTERIC COATED 81 MG TABLET.DR. PO SCH (08:24)
[2019-01-08] MEDS: TAMSULOSIN 0.4 MG CAP.ER.24H. PO SCH (08:25)
[2019-01-08] MEDS: LACTOBACILLUS RHAMNOSUS GG 1 CAPSULE. PO SCH ×2 (08:25→20:18)
[2019-01-08] MEDS: metFORMIN 500 MG TABLET PO SCH ×2 (08:25→17:14)
[2019-01-08] MEDS: PRAMIPEXOLE 0.25 MG TABLET. PO SCH ×3 (08:26→20:18)
[2019-01-08] MEDS: POLYETHYLENE GLYCOL 3350 17 GM PACKET. PO SCH (08:26)
[2019-01-08] MEDS: MEMANTINE 10 MG TABLET. PO SCH ×2 (08:26→20:18)
[2019-01-08] MEDS: CLOPIDOGREL BISULFATE 75 MG TABLET PO SCH (08:26)
[2019-01-08] MEDS: RIVASTIGMINE 13.3MG PATCH. TD SCH (08:27)
[2019-01-08] MEDS: ASCORBIC ACID 500 MG TABLET PO SCH (08:27)
[2019-01-08] MEDS: ALLOPURINOL 300 MG TABLET. PO SCH (08:27)
[2019-01-08] MEDS: MULTIVITAMIN with MINERAL TABLET. PO SCH (08:27)
[2019-01-08] MEDS: CARBIDOPA/LEVODOPA CR 50/200MG TABLET.SA PO SCH ×2 (08:27→20:18)
[2019-01-08] MEDS: ACETAMINOPHEN 325 MG TABLET PO SCH ×2 (08:27→20:18)
[2019-01-08] MEDS: SERTRALINE 100 MG TABLET. PO SCH (08:27)
[2019-01-08] MEDS: LIDOCAINE (700MG/PATCH) PATCH. TD SCH (08:28)
[2019-01-08] MEDS: RASAGILINE MESYLATE 0.5 MG PO SCH (08:36)
[2019-01-08 16:33] VITALS: BP 146/80
[2019-01-08] MEDS: LORazepam 0.5 MG TABLET PO PRN (17:14)
[2019-01-08] MEDS: MIRTAZAPINE 15 MG TABLET PO SCH (20:18)
[2019-01-08] MEDS: traZODone 100 MG TABLET. PO SCH (20:18)
[2019-01-08] MEDS: MELATONIN 3 MG TABLET PO SCH (20:18)
[2019-01-08] MEDS: PATCH REMOVAL. MC SCH (21:00)
--- NOTE | 2019-01-08 22:05 | PDOC ---
Exam Note: Liam Note: Please also refer to the separate dictated note~for this date of service dictated separately.~Patient seen individually. Discussed the patient with Nursing staff reviewed the chart.~Reviewed interim history and current functioning. Reviewed vital signs,~Labs/ Radiology~and current medications noted below. Continue current treatment with the changes noted in the dictated addendum note Assessment: Vital Signs/I&O: Vital Signs Date Time Temp Pulse Resp B/P (MAP) Pulse Ox O2 Delivery O2 Flow Rate FiO2 01/08/19 16:33 97.3 77 18 146/80 (102) 98 01/08/19 04:51 Room Air I & O 01/07/19 01/07/19 01/08/19 15:00 23:00 07:00 Intake Total 720 ml 720 ml Balance 720 ml 720 ml Current Medications: I have reviewed the current psychotropics carefully including drug interactions. Risk benefit ratio favors no change other than as noted in my dictated progress note. Diagnosis: Problems: (1) Anxiety disorder (2) Dementia in Alzheimer's disease with delusions (3) Dementia in Alzheimer's disease with depression (4) Dementia, vascular, with delusions (5) Dementia, vascular, with depression (6) Impulse control disorder (7) Lewy body dementia with behavioral disturbance MAURICE GLASS MD Jan 08, 2019 22:05
[2019-01-09] MEDS ORDERED: RIVA1PAT5 TD (02:26)
[2019-01-09] MEDS ORDERED: METH113C10 TP (02:29)
[2019-01-09] MEDS ORDERED: MIRT15TA PO (02:30)
[2019-01-09] MEDS ORDERED: SERT100T PO (02:31)
[2019-01-09] MEDS ORDERED: TRAZ-86 PO (02:33)
[2019-01-09] MEDS ORDERED: OLAN5TAB7 PO (02:36)
[2019-01-09] MEDS ORDERED: MAGN2400 PO (02:38)
[2019-01-09] MEDS ORDERED: LACT1CAP19 PO (02:41)
[2019-01-09] MEDS ORDERED: MELA3TAB56 PO (02:42)
[2019-01-09] MEDS ORDERED: MEMA10TA PO (02:48)
--- NOTE | 2019-01-09 04:39 | PN ---
DATE: 01/07/2019 PSYCHIATRIC PROGRESS NOTE This late entry 01/07/2019 covers elements not covered in my initial note. SUBJECTIVE: I met with the patient evening of 01/07/2019. The patient slept 7-1/4 hours previous night. Also reviewed information with Dr. Srivastava since Dr. Srivastava covered for me for the past 2 days. Per nursing report, he has had a "great day." He fed himself. Drooling is better. He is more cooperative. REVIEW OF SYSTEMS: Ambulation impaired, in wheelchair. No CV, , pulmonary, eye system symptoms on review. MENTAL STATUS EXAM: Oriented to himself and situation. Speech as above. Abstraction fair, computation impaired, language function intact, attention span short. Mood and affect is improved, less labile, less withdrawn. LABORATORY DATA: Reviewed. IMPRESSION: Unchanged from initial note. PLAN: No change from initial note. MAN Tonya GLASS MD DR: CHANDAN/nadeem JOB#: [id number] / [id number]
[2019-01-09] MEDS: CARBIDOPA/LEVODOPA 25/250MG TABLET PO SCH ×2 (05:04→09:43)
[2019-01-09 06:39] VITALS: BP 149/58
[2019-01-09] MEDS: TAMSULOSIN 0.4 MG CAP.ER.24H. PO SCH (08:11)
[2019-01-09] MEDS: MEMANTINE 10 MG TABLET. PO SCH (08:11)
[2019-01-09] MEDS: ALLOPURINOL 300 MG TABLET. PO SCH (08:11)
[2019-01-09] MEDS: metFORMIN 500 MG TABLET PO SCH (08:12)
[2019-01-09] MEDS: LACTOBACILLUS RHAMNOSUS GG 1 CAPSULE. PO SCH (08:12)
[2019-01-09] MEDS: CARBIDOPA/LEVODOPA CR 50/200MG TABLET.SA PO SCH (08:12)
[2019-01-09] MEDS: ASCORBIC ACID 500 MG TABLET PO SCH (08:12)
[2019-01-09] MEDS: SERTRALINE 100 MG TABLET. PO SCH (08:12)
[2019-01-09] MEDS: PRAMIPEXOLE 0.25 MG TABLET. PO SCH (08:12)
[2019-01-09] MEDS: MULTIVITAMIN with MINERAL TABLET. PO SCH (08:12)
[2019-01-09] MEDS: CLOPIDOGREL BISULFATE 75 MG TABLET PO SCH (08:12)
[2019-01-09] MEDS: ASPIRIN ENTERIC COATED 81 MG TABLET.DR. PO SCH (08:12)
[2019-01-09] MEDS: ACETAMINOPHEN 325 MG TABLET PO SCH (08:12)
[2019-01-09] MEDS: RIVASTIGMINE 13.3MG PATCH. TD SCH (08:13)
[2019-01-09] MEDS: LIDOCAINE (700MG/PATCH) PATCH. TD SCH (08:15)
[2019-01-09] MEDS: POLYETHYLENE GLYCOL 3350 17 GM PACKET. PO SCH (08:18)
[2019-01-09] MEDS: RASAGILINE MESYLATE 0.5 MG PO SCH (08:24)
--- NOTE | 2019-01-09 21:49 | PDOC ---
Exam Note: Liam Note: Please also refer to the separate dictated note~for this date of service dictated separately.~Patient seen individually. Discussed the patient with Nursing staff reviewed the chart.~Reviewed interim history and current functioning. Reviewed vital signs,~Labs/ Radiology~and current medications noted below. Continue current treatment with the changes noted in the dictated addendum note Assessment: Vital Signs/I&O: Vital Signs Date Time Temp Pulse Resp B/P (MAP) Pulse Ox O2 Delivery O2 Flow Rate FiO2 01/09/19 06:39 98.0 59 18 149/58 (88) 99 01/08/19 04:51 Room Air I & O 01/08/19 01/08/19 01/09/19 15:00 23:00 07:00 Intake Total 600 ml 600 ml Balance 600 ml 600 ml Labs: Laboratory Tests Test 01/09/19 07:25 Glucose (Fingerstick) 111 mg/dL (70-99) H Current Medications: I have reviewed the current psychotropics carefully including drug interactions. Risk benefit ratio favors no change other than as noted in my dictated progress note. Diagnosis: Problems: (1) Anxiety disorder (2) Dementia in Alzheimer's disease with delusions (3) Dementia in Alzheimer's disease with depression (4) Dementia, vascular, with delusions (5) Dementia, vascular, with depression (6) Impulse control disorder (7) Lewy body dementia with behavioral disturbance MAURICE GLASS MD Jan 09, 2019 21:49
--- NOTE | 2019-01-10 19:52 | DS ---
DATE OF DISCHARGE: 01/09/2019 This late entry, date of service 01/09, covers elements not covered in my initial note. REASON FOR ADMISSION: Please refer to the admission history for details. Briefly, the patient is an 83-year-old male referred to us from [facility] Emergency Room where he presented from [facility] on account of being combative, threatening to shoot others, refusing to take medications because he felt they were poisoned. He was increasingly confused and had a significant cognitive decline over the past few weeks prior to which he was going out for coffee with his friends amongst other things. SIGNIFICANT FINDINGS AND CLINICAL COURSE: Following admission, the patient was seen daily individually by myself from a psychiatric standpoint. Medical followup with Dr. Garcia. The patient continued to have marked mood lability, intermittent psychotic symptoms, agitation with some suggestions of Lewy body dementia with delusion, behavioral disturbance. Adjustments were made in his psychotropics. He seemed to respond to a combination of Zoloft 100 mg a day; trazodone 100 mg at bedtime, july repeat x 1; Remeron 15 mg at bedtime; Namenda 10 mg twice a day; Exelon patch 13.3 mg a day; melatonin 3 mg at bedtime; and Zyprexa p.r.n. Gradually, the patient's mood appeared to improve. He still had memory deficits and intermittent changes in cognition and psychotic symptoms consistent with his diagnosis, but behaviorally did much better. REVIEW OF SYSTEMS: Prior to discharge on 01/09, ambulation impaired, in wheelchair. No CV, , pulmonary, eye, ENT system symptoms on review. Reliability poor. MENTAL STATUS EXAM: Oriented to himself and situation. Speech has some latency, coherent. Abstraction fair, computation impaired, language function intact, attention span short. Mood and affect somewhat withdrawn, but lability much improved. Not psychotic, not aggressive. LABORATORY DATA: Labs reviewed. FINAL DIAGNOSES: Major neurocognitive disorder, multifactorial, possibly Lewy body, vascular with delusion, depression; behavioral disturbance; psychotic disorder, unspecified; impulse control disorder, unspecified; and anxiety disorder, unspecified. Rest unchanged from admission. DISCHARGE MEDICATIONS: Please refer to the [facility]. DISCHARGE FOLLOWUP: Outpatient psychiatric and medical followup at the custodial. MAN Tonya GLASS MD DR: CHANDAN/nadeem JOB#: [id number] / [id number]
--- NOTE | 2019-01-11 03:38 | PN ---
DATE: 01/08/2019 PSYCHIATRIC PROGRESS NOTE This late entry 01/08/2019 covers elements not covered in my initial note. SUBJECTIVE: I met with the patient evening of 01/08/2019 at some length. Discussed with FANNY Carlin. The patient slept 5 hours previous night. He has been accepted for rehab at a nursing facility and I discussed discharge plans for 01/09/2019 with him. He does not want to go to the facility, was trying to call his son to get around his family's arrangement of this. REVIEW OF SYSTEMS: Ambulation impaired, in wheelchair. No CV, , pulmonary, eye system symptoms on review. MENTAL STATUS EXAM: Oriented to himself and situation. Speech had some latency, coherent, often responses monosyllabic. Abstraction fair, computation impaired, language function intact, attention span short. Mood and affect remain somewhat withdrawn. LABORATORY DATA: Reviewed. IMPRESSION: Unchanged from initial note. PLAN: No change from initial note with possible discharge on 01/09/2019. MAN Tonya GLASS MD DR: CHANDAN/nadeem JOB#: [id number] / [id number]
== END 2019-01-09 11:30 | DRG 885 ==
LOC: GEROPSY 21:39
PROVIDERS: ADMIT Psychiatry & Neurology Psychiatry; ATTEND Psychiatry & Neurology Psychiatry
DX: F33.3 Major depressive disorder, recurrent, severe with psychotic symptoms (principal); F05 Delirium due to known physiological condition; N39.0 Urinary tract infection, site not specified; F02.81 Dementia in other diseases classified elsewhere, unspecified severity, with behavioral disturbance; F01.51 Vascular dementia, unspecified severity, with behavioral disturbance; G31.83 Neurocognitive disorder with Lewy bodies; F41.9 Anxiety disorder, unspecified; F63.9 Impulse disorder, unspecified; G30.9 Alzheimer's disease, unspecified; F01.50 Vascular dementia, unspecified severity, without behavioral disturbance, psychotic disturbance, mood disturbance, and anxiety; I10 Essential (primary) hypertension; Z86.79 Personal history of other diseases of the circulatory system; I25.5 Ischemic cardiomyopathy; D64.9 Anemia, unspecified; E78.5 Hyperlipidemia, unspecified; I25.10 Atherosclerotic heart disease of native coronary artery without angina pectoris; M19.90 Unspecified osteoarthritis, unspecified site; N40.0 Benign prostatic hyperplasia without lower urinary tract symptoms; R63.3 Feeding difficulties; M10.9 Gout, unspecified; S41.112A Laceration without foreign body of left upper arm, initial encounter; Z79.899 Other long term (current) drug therapy; Z95.0 Presence of cardiac pacemaker; Z95.1 Presence of aortocoronary bypass graft; Z96.649 Presence of unspecified artificial hip joint; Z98.41 Cataract extraction status, right eye; Z98.42 Cataract extraction status, left eye
CPT/HCPCS: 36415; 70450; 80053; 80061; 80164; 81001; 82306; 82947; 83036; 83540; 83550; 83735; 85025; 86592; 87086; 87186; 90471; 90686; 97163; 97110; 97116; 97530; 99285-25